=== PATIENT | male | born 1935 ===

== ENCOUNTER 2016-09-01 15:21 | Observation (INO) | payer MEDICARE, OTHER ==
[2016-09-01 16:09] LABS: BASO # 0.1 K/uL (0.0-0.2); EOS # 0.4 K/uL (0.0-0.7); EOS % 5.8 % (0.0-4.0); HEMATOCRIT 30.5 % (35.0-51.0); LYMPH # 1.4 K/uL (1.0-4.3); LYMPH % 18.3 % (20.0-40.0); MEAN CELL VOLUME 80.5 fl (80.0-94.0); MEAN CORPUSCULAR HGB CONC 32.3 g/dL (33.0-37.0); MEAN PLATELET VOLUME 8.4 fl (7.2-11.7); MONO # 0.7 K/uL (0.0-0.8); MONO % 9.3 % (0.0-10.0); NEUT % 65.6 % (50.0-75.0); RED CELL DISTRIBUTION WIDTH 15.3 % (11.5-14.5); WHITE BLOOD COUNT 7.6 K/uL (4.8-10.8)
[2016-09-01 16:21] LABS: ALB/GLOB RATIO 1.3 (1.0-2.1); ALKALINE PHOSPHATASE 81 U/L (38-126); ALT/SGPT 24 U/L (21-72); AST/SGOT 29 U/L (17-59); BILIRUBIN,TOTAL 0.4 mg/dl (0.2-1.3); BLOOD UREA NITROGEN 26 mg/dl (9-20); CARBON DIOXIDE 21 mmol/L (22-30); CHLORIDE 108 mmol/L (98-107); CHOLESTEROL 117 mg/dL (0-199); GFR AFRICAN-AMERICAN > 60; GLUCOSE,RANDOM 231 mg/dL (75-110); SODIUM 138 mmol/l (132-148); TOTAL PROTEIN 6.9 G/DL (6.3-8.2)
--- NOTE | 2016-09-01 16:27 | CT ---
PROCEDURE: CT HEAD WITHOUT CONTRAST. HISTORY: R weakness x2days COMPARISON: None available. TECHNIQUE: Axial computed tomography images were obtained through the head/brain without intravenous contrast. Radiation dose: Total exam DLP = 805.92 mGy-cm. This CT exam was performed using one or more of the following dose reduction techniques: Automated exposure control, adjustment of the mA and/or kV according to patient size, and/or use of iterative reconstruction technique. FINDINGS: HEMORRHAGE: No intracranial hemorrhage. BRAIN: Focal encephalomalacia/gliosis noted at the right frontal lobe may represent old infarct or injury. Small focal encephalomalacia at the left cerebellum is also seen suspicious for old infarct. Esws-zq-kezfebcb atrophy and mild white matter changes suggestive but nonspecific for chronic microvascular ischemic disease. VENTRICLES: Unremarkable. No hydrocephalus. CALVARIUM: Unremarkable. PARANASAL SINUSES: Unremarkable as visualized. No significant inflammatory changes. MASTOID AIR CELLS: Unremarkable as visualized. No inflammatory changes. OTHER FINDINGS: None. IMPRESSION: No evidence of acute intracranial hemorrhage mass effect or midline shift. Focal encephalomalacia at the right frontal and left cerebellum suggestive of old infarcts. Moderate atrophy and [id number]-ci-[id number] white matter changes likely due to chronic microvascular ischemic disease. Baseline study in this institution. If clinically warranted further assessment by MRI may be obtained.
[2016-09-01 16:31] LABS: POTASSIUM 5.3 MMOL/L (3.6-5.0)
[2016-09-01 16:36] LABS: PARTIAL THROMBOPLASTIN TIME 32.4 Seconds (25.6-37.1)
[2016-09-01] MEDS ORDERED: Sodium Chloride 0.9% 1,000 ML IV STA (17:01)
[2016-09-01] MEDS ORDERED: Aspirin 325 mg EC Tablets PO ONE (17:04)
--- NOTE | 2016-09-01 17:04 | ED PDOC ---
HPI:STROKE - Time Time: 15:40 (\) - Historian Historian: Patient - Chief Complaint Chief Complaint: Weakness - Onset Date: 08/30/16 Onset: Days (2) - Timing Timing: Intermittent - Location Locate right:: Upper extremity, Lower extremity - Radiation Radiation: None - Exacerbated by Exacerbated by:: Nothing - Relieved by Relieved by:: Nothing - TPA Positive for Contraindication: Yes Reason tPA is not being Administered: symptoms ongoing 2+ days - Notes: Notes:: 81yo male hx multiple medical problems presents c/o right sided weakness 2 days ago, had difficulty holding his cup of tea, symptoms resolved after several hours, then returned yesterday when he fell, now today symptoms returned. Denies change in speech, headache or hip pain. Does note ongoing right lower back pain. NIHSS Stroke Scale - Date/Time Evaluation Performed When Was NIHSS Performed: Baseline - How Severe is the Stroke Level of Consciousness: 0=Alert LOC to Questions: 0=Both comments correct LOC to commands: 0=Obeys both correctly Best Gaze: 0=Normal Visual: 0=No visual loss Facial: 0=Normal Motor Arm - Left: 0=No drift Motor Arm - Right: 1=Drift noted before 10 sec Motor Leg - Left: 0=No drift Motor Leg - Right: 1=Drift before 5 sec Limb Ataxia: 0=Absent Sensory: 0=Normal Best Language: 0=No aphasia Dysarthia: 0=Normal articulation Extinction & Inattention (Neglect): 0=Normal, no object Score: 2 rTPA Inclusion/Exclusion - Refusal of Treatment Patient Refused Treatment: No - Inclusion Criteria for Altepase Patient is 18 years or Older: Yes The Clinical Diagnosis of Ischemic Stroke That is Causing a Potentially Disabling Neurological Deficit: Yes Time of Onset is Well Established to be Less Than 270 Minute Before Treatment Would Begin: No Risk/Benefit Discussed With Patient/Family Member Present: Yes - Warning to TPA With Conditions Following Conditions Weighed Against Anticipated Benefit: Yes Condition: Rapid Improvement Additional Condition (For 3-4.5 Hour Window): Prior Stroke and Diabetes Past Medical History Reviewed: Historical Data, Nursing Documentation, Vital Signs Vital Signs: Last Vital Signs Temp 97.9 F 09/01/16 15:26 Pulse 55 L 09/01/16 15:26 Resp 16 09/01/16 15:26 BP 129/54 L 09/01/16 15:26 Pulse Ox 98 09/01/16 15:26 - Medical History PMH: Arthritis (hands), CAD, Cardia Arrhythmia, Diabetes, HTN, Seizures Denies: Chronic Kidney Disease - Surgical History Surgical History: CABG, Coronary Stent - Family History Family History: States: Unknown Family Hx - Living Arrangements Living Arrangements: With Family - Social History Current smoker - smoking cessation education provided: No - Immunization History Hx Tetanus Toxoid Vaccination: No Hx Influenza Vaccination: No Hx Pneumococcal Vaccination: No - Home Medications Home Medications: Ambulatory Orders Medication Instructions Recorded Clopidogrel [Plavix] 75 mg PO DAILY #0 tab 12/30/13 Aspirin [Ecotrin] 81 mg PO DAILY 09/01/16 Atenolol [Tenormin] 50 mg PO BID 09/01/16 Brimonidine Tartrate/Timolol 1 drop EACHEYE BID 09/01/16 [Combigan 0.2%-0.5% Eye Drops] Folic Acid/Multivit-Min/Lutein 1 tab PO DAILY 09/01/16 [Multi-Vitamin Gummies] Glimepiride [Amaryl] 1 mg PO DAILY 09/01/16 Rosuvastatin Calcium [Crestor] 20 mg PO DAILY 09/01/16 Valsartan/Hydrochlorothiazide 1 tab PO DAILY 09/01/16 [Valsartan-Hctz 80-12.5 mg Tab] levETIRAcetam [Keppra] 500 mg PO BID 09/01/16 - Allergies Allergies/Adverse Reactions: Allergies Allergy/AdvReac Type Severity Reaction Status Date / Time No Known Allergies Allergy Verified 09/01/16 15:25 Review of Systems ROS Statement: Except As Marked, All Systems Reviewed And Found Negative Constitutional: Negative for: Fever, Chills Cardiovascular: Negative for: Chest Pain, Palpitations Musculoskeletal: Positive for: Back Pain, Leg Pain. Negative for: Neck Pain, Shoulder Pain Skin: Negative for: Rash, Lesions, Jaundice Neurological: Positive for: Weakness, Numbness, Dizziness. Negative for: Confusion, Seizures, Headache Physical Exam - Reviewed Nursing Documentation Reviewed: Yes Vital Signs Reviewed: Yes - Physical Exam Appears: Positive for: Well, Non-toxic, No Acute Distress Head Exam: Positive for: ATRAUMATIC, NORMAL INSPECTION, NORMOCEPHALIC Skin: Positive for: Normal Color, Warm, DRY Eye Exam: Positive for: EOMI, Normal appearance, PERRL ENT: Positive for: Normal ENT Inspection Neck: Positive for: Normal, Painless ROM Cardiovascular/Chest: Positive for: Regular Rate, Rhythm Respiratory: Positive for: CNT, Normal Breath Sounds Gastrointestinal/Abdominal: Positive for: Normal Exam, Bowel Sounds, Soft Back: Positive for: Normal Inspection Extremity: Positive for: Normal ROM Neurologic/Psych: Positive for: Alert, 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 (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), Oriented, Other ( RLE 4/5 RUE 4/5 strength; coordination grossly intact) - Laboratory Results Result Diagrams: 09/01/16 15:55 09/01/16 15:55 - ECG ECG: Positive for: Interpreted By Tn ECG Rhythm: Positive for: Atrial Fibrillation Interpretation Of ECG: slow ventricular response O2 Sat by Pulse Oximetry: 98 Pulse Ox Interpretation: Normal - Radiology X-Ray: Interpreted by Me X-Ray Interpretation: No Acute Disease (surgical clips) - Critical Care Total Time (In Min): 35 Comments: pt required immediate bedside attention due to bradycardia and possible acute neurologic event Medical Decision Making Medical Decision Making: stroke workup initiated. CT brain reveals extensive prior infarcts. Labs reviewed, hyperglycemia, mild anemia. ASA ordered Admit tele obs, Dr Diaz, d/w Dunia Maza and Dr Dominguez neurology. Son later arrived in ED, states pt sees Dr Montes for neurology, last saw about 1 yr ago. He has a stent in L carotid as 50% occluded and R 100% occluded. Does not take warfarin or other anticoagulants. Does take ASA daily. Fell yesterday but that was first fall in many years. Disposition - Clinical Impression Clinical Impression: TIA (transient ischemic attack), Bradycardia - Patient ED Disposition Is Patient to be Admitted: Yes Counseled Patient/Family Regarding: Studies Performed, Diagnosis, Need For Followup - Disposition Disposition Time: 16:40 Condition: FAIR - Pt Status Changed To: Hospital Disposition Of: Observation
--- NOTE | 2016-09-01 18:02 | RAD ---
HISTORY: TIA COMPARISON: 12/29/2013. FINDINGS: LUNGS: No active pulmonary disease. PLEURA: No significant pleural effusion identified, no pneumothorax apparent. CARDIOVASCULAR: Cardiomegaly. No evidence of acute, significant cardiovascular disease. No caps previous OSSEOUS STRUCTURES: No significant abnormalities. VISUALIZED UPPER ABDOMEN: Normal. OTHER FINDINGS: None. IMPRESSION: No active disease. No significant interval change compared to the prior examination(s).
--- NOTE | 2016-09-01 19:21 | PCM.RRTMUL ---
<Orion Hauser - Last Filed: 09/01/16 22:21> TOY ASSEMBLER Nurse Assessment - Vital Signs Blood Pressure:: 158/84 Pulse Rate:: 59 Respiratory Rate:: 14 Temperature:: 98.0 F I.Reason for TOY ASSEMBLER - A) Acute Change in Patient: Subjective: TOY ASSEMBLER Time: 7:08 TOY ASSEMBLER Location 417-1 TOY ASSEMBLER Reason: Numbness left leg TOY ASSEMBLER Discoverer: ADALI Chino Subjective: Pt. seen in bed right after being transported from E.R. to telemetry unit on 417-1 complaining of left lower leg numbness and weakness. Pt. AAOx 3 reports was just in the E.R. for TIA and had a CT scan of his head done. On ROS, pt. denies any headache, chest pain, abdominal pain, back pain, fever, or chills. Pt. does report weakness on his left side. Objective: Vitals: T-97.9, BP-153/61, HR-58, RR14, O2-100% on Room Air General- Comfortable, No distress, Speech Normal HEENT- PERRLA Resp- CTAB Neuro- ROM intact upper and lower extremities Peripheral- +2 pedal pulses bilaterally TOY ASSEMBLER Interventions: CT Head reviewed: Negative for signs of intracranial hemorrhage, mass effect, or midline shift A/P: 81 y.o. male admitted for TIA and negative CT scan head in the E.R. with stable vital signs and patient with ability to move all four extremiteis without difficulty while in bed with subjective weakness on the left side in stable condition. TOY ASSEMBLER Leader: Dr. Shepard TOY ASSEMBLER Resident: Dr. Hauser <Frank Shepard - Last Filed: 09/02/16 19:55> Addendum Addendum: 09/02/16 19:49 Patient seen and examined shoulder to shoulder with Dr Hauser. i agree with the assessment and plan outlined which reflect my direct input. The patient when seen was awake and alert with the same complaint of left lower extremity weakness as on his entry to the ED. Diagnosis is TIA with negative CT of head. Continue Neuro checks. MRI for AM. Frank Shepard MD.
[2016-09-02 04:48] LABS: BASO # 0.1 K/uL (0.0-0.2); BASO % 0.6 % (0.0-2.0); EOS # 0.6 K/uL (0.0-0.7); EOS % 6.5 % (0.0-4.0); HEMATOCRIT 31.9 % (35.0-51.0); LYMPH # 1.3 K/uL (1.0-4.3); LYMPH % 14.9 % (20.0-40.0); MEAN CELL VOLUME 81.8 fl (80.0-94.0); MEAN CORPUSCULAR HEMOGLOBIN 26.3 pg (27.0-31.0); MEAN CORPUSCULAR HGB CONC 32.2 g/dL (33.0-37.0); MEAN PLATELET VOLUME 8.5 fl (7.2-11.7); MONO # 0.9 K/uL (0.0-0.8); MONO % 9.9 % (0.0-10.0); NEUT # 6.1 K/uL (1.8-7.0); NEUT % 68.1 % (50.0-75.0); NRBC % 0.1 % (0.0-0.0); RED CELL DISTRIBUTION WIDTH 15.4 % (11.5-14.5)
[2016-09-02 04:55] LABS: ALB/GLOB RATIO 1.3 (1.0-2.1); ALKALINE PHOSPHATASE 81 U/L (38-126); ALT/SGPT 30 U/L (21-72); AST/SGOT 29 U/L (17-59); BILIRUBIN,TOTAL 0.5 mg/dl (0.2-1.3); BLOOD UREA NITROGEN 18 mg/dl (9-20); CARBON DIOXIDE 23 mmol/L (22-30); CHLORIDE 112 mmol/L (98-107); GFR AFRICAN-AMERICAN > 60; GLUCOSE,RANDOM 82 mg/dL (75-110); POTASSIUM 4.9 MMOL/L (3.6-5.0); SODIUM 145 mmol/l (132-148); TOTAL PROTEIN 6.8 G/DL (6.3-8.2)
[2016-09-02 07:57] VITALS: RESP 18
[2016-09-02] MEDS ORDERED: Enoxaparin 40 mg Syringe SC SCH (09:00)
[2016-09-02] MEDS ORDERED: Patient's Own Med (Brimonidine Tartrate/Timolol [Combigan 0.2%-0.5% Eye Drops] 1 DROP) EACHEYE SCH (09:00)
[2016-09-02] MEDS ORDERED: GlipiZIDE 2.5 mg SR Tab PO SCH (09:00)
[2016-09-02] MEDS ORDERED: Patient's Own Med (Valsartan/Hydrochlorothiazide [Valsartan-Hctz 80-12.5 Mg Tab] 1 TAB) PO SCH (09:00)
[2016-09-02] MEDS ORDERED: Multivitamin With Minerals Tab PO SCH (09:00)
[2016-09-02] MEDS: Brimonidine 0.2% 50 DROP/5 ML BOTTLE OU SCH ×3 (09:14→17:30)
--- NOTE | 2016-09-02 09:22 | CP.PCM.HP ---
History of Present Illness - History of Present Illness History of Present Illness: pt admitted for tia, having intermittent muscular weakness, tingling, pain. thurs felt like he could not picker tender a cup of tea. atp resent only c/o pain to r great toe. has h/o cad, htn, seizure, dyslipiemia. has had left carotid stent and cardiac stent x 1. no neuro deficits or fast s/s at present. bruit/ thrill to R neck. case d/c w/ dr sanchez-neuro and dr campblel-radiology. pt has occlusion r carotid and large amt of disease w/ partial occlusion of stent to left carotid. Present on Admission - Present on Admission Any Indicators Present on Admission: No Review of Systems - Neurological Neurological: As Per HPI, Focal Weakness, Paresthesias Past Patient History - Past Medical History & Family History Past Medical History?: Yes - Past Social History Smoking Status: Never Smoked - CARDIAC Hx Cardiac Disorders: Yes Hx Cardia Arrhythmia: Yes Hx Hypertension: Yes - PULMONARY Hx Respiratory Disorders: No - NEUROLOGICAL Hx Neurological Disorder: Yes Hx Seizures: Yes - HEENT Hx HEENT Problems: Yes Other/Comment: hard of hearing - RENAL Hx Chronic Kidney Disease: No - ENDOCRINE/METABOLIC Hx Endocrine Disorders: Yes Hx Diabetes Mellitus Type 2: Yes - HEMATOLOGICAL/ONCOLOGICAL Hx Blood Disorders: No - INTEGUMENTARY Hx Dermatological Problems: No - MUSCULOSKELETAL/RHEUMATOLOGICAL Hx Arthritis: Yes (hands) Hx Back Pain: Yes (chronic) Hx Falls: Yes - GASTROINTESTINAL Hx Gastrointestinal Disorders: No - GENITOURINARY/GYNECOLOGICAL Hx Genitourinary Disorders: No - PSYCHIATRIC Hx Psychophysiologic Disorder: No - SURGICAL HISTORY Hx Angioplasty: Yes (3-4) Hx Coronary Artery Bypass Graft: Yes Hx Coronary Stent: Yes Other/Comment: carotid stent, retinal stent - ANESTHESIA Hx Anesthesia: Yes Hx Anesthesia Reactions: No Hx Malignant Hyperthermia: No Meds Allergies/Adverse Reactions: Allergies Allergy/AdvReac Type Severity Reaction Status Date / Time No Known Allergies Allergy Verified 09/01/16 15:25 Physical Exam - Constitutional Appears: Well, Non-toxic, No Acute Distress - Head Exam Head Exam: ATRAUMATIC, NORMAL INSPECTION, NORMOCEPHALIC - Eye Exam Eye Exam: EOMI, Normal appearance, PERRL Pupil Exam: NORMAL ACCOMODATION, PERRL - ENT Exam ENT Exam: Mucous Membranes Moist, Normal Exam - Neck Exam Neck exam: Positive for: Normal Inspection - Respiratory Exam Respiratory Exam: Clear to Auscultation Bilateral, NORMAL BREATHING PATTERN - Cardiovascular Exam Cardiovascular Exam: REGULAR RHYTHM, RRR, +S1, +S2 - GI/Abdominal Exam GI & Abdominal Exam: Normal Bowel Sounds, Soft. absent: Tenderness - Extremities Exam Extremities exam: Positive for: full ROM, normal capillary refill, normal inspection, pedal pulses present Additional comments: pain on palp r great toe - Back Exam Back exam: NORMAL INSPECTION - Neurological Exam Neurological exam: Alert, CN II-XII Intact, Normal Gait, Oriented x3, Reflexes Normal - Psychiatric Exam Psychiatric exam: Normal Affect, Normal Mood - Skin Skin Exam: Dry, Intact, Normal Color, Warm Results - Vital Signs Recent Vital Signs: Last Vital Signs Temp 97.8 F 09/02/16 07:56 Pulse 56 L 09/02/16 07:56 Resp 18 09/02/16 07:56 BP 144/52 L 09/02/16 07:56 Pulse Ox 98 09/02/16 07:56 - Labs Result Diagrams: 09/02/16 04:05 09/02/16 04:05 Labs: Laboratory Results - last 24 hr 09/01/16 09/01/16 09/02/16 20:27 22:58 04:05 WBC 9.0 RBC 3.90 L Hgb 10.3 L Hct 31.9 L MCV 81.8 MCH 26.3 L MCHC 32.2 L RDW 15.4 H Plt Count 192 MPV 8.5 Neut % (Auto) 68.1 Lymph % (Auto) 14.9 L [place] % (Auto) 9.9 Eos % (Auto) 6.5 H Baso % (Auto) 0.6 Neut # 6.1 Lymph # 1.3 [place] # 0.9 H Eos # 0.6 Baso # 0.1 Sodium Potassium Chloride Carbon Dioxide Anion Gap BUN Creatinine Est GFR ( Amer) Est GFR (Non-Af Amer) POC Glucose (mg/dL) 260 H 165 H Random Glucose Calcium Total Bilirubin AST ALT Alkaline Phosphatase Total Protein Albumin Globulin Albumin/Globulin Ratio 09/02/16 09/02/16 09/02/16 04:05 05:40 06:51 WBC RBC Hgb Hct MCV MCH MCHC RDW Plt Count MPV Neut % (Auto) Lymph % (Auto) [place] % (Auto) Eos % (Auto) Baso % (Auto) Neut # Lymph # [place] # Eos # Baso # Sodium 145 Potassium 4.9 Chloride 112 H Carbon Dioxide 23 Anion Gap 15 BUN 18 Creatinine 1.1 Est GFR ( Amer) > 60 Est GFR (Non-Af Amer) > 60 POC Glucose (mg/dL) 69 116 H Random Glucose 82 Calcium 9.0 Total Bilirubin 0.5 AST 29 ALT 30 Alkaline Phosphatase 81 Total Protein 6.8 Albumin 3.8 Globulin 3.0 Albumin/Globulin Ratio 1.3 Assessment & Plan (1) DVT prophylaxis Assessment and Plan: scd nad aehose lvoenox, asa, palvix Status: Acute (2) Bradycardia Assessment and Plan: cardio consult Status: Acute (3) TIA (transient ischemic attack) Assessment and Plan: carotid doplar w/ large amt of disease, mri brain normal case d/c w/ neuro and radio who are on case ?? need to transfer for IR procedure after neuro eval cont asa, plavix, lipitor Status: Acute (4) Hypertension Assessment and Plan: cont meds, strict bp control Status: Acute Decision To Admit - Pt Status Changed To: Hospital Disposition Of: Observation - . Bed Request Type: Telemetry Admitting Physician: Tami Diaz
[2016-09-02] MEDS ORDERED: Bacitracin OINT 15GM TOP SCH (10:33)
--- NOTE | 2016-09-02 10:56 | US ---
PROCEDURE: Duplex ultrasound of the carotid and vertebral arteries. HISTORY: tia COMPARISON: None available. TECHNIQUE: Grayscale and duplex Doppler evaluation of the cervical carotid and vertebral arteries were performed. The common carotid, carotid bifurcations and cervical ICA and proximal ECA were evaluated. The vertebral arteries were evaluated for gross patency and direction. FINDINGS: RIGHT CAROTID ARTERIES: Complete occlusion of the right internal carotid artery. LEFT CAROTID ARTERIES: There is an apparent endovascular stent graft which extends from the distal common carotid artery, presumably into the bifurcation and possibly into the proximal internal carotid artery however due to significant atherosclerotic plaque changes apparently within the graft the distal aspect of the graft itself is of not visualized. Markedly increased increased velocity within the internal carotid artery. Maximal right ICA velocity = 236.56 cm/S Maximal left CCA velocity = 125.8 cm/S. ICA/CCA ratio = 1.9 VERTEBRAL ARTERIES: Right Vertebral Artery: Patent. Antegrade flow. Left Vertebral Artery: Patent. Antegrade flow. OTHER FINDINGS: None. IMPRESSION: Complete occlusion of the right internal carotid artery. In situ endovascular stent graft within the left common carotid artery bifurcation and probably extending into the proximal internal carotid artery however on the distal aspect of the graft is not seen due to significant atherosclerotic plaque . Findings suggest severe high-grade stenosis of the left internal carotid artery. Findings discussed with Dr. Maza at approximately 10:45 a.m. with written down and read back verification.
--- NOTE | 2016-09-02 11:11 | MRI ---
PROCEDURE: MRI BRAIN WITHOUT CONTRAST HISTORY: tia COMPARISON: Comparison made with prior CT scan of the brain dated 09/01/2016. TECHNIQUE: Multiplanar, multisequence MR images of the brain were obtained without intravenous contrast enhancement. FINDINGS: HEMORRHAGE: No acute parenchymal, subarachnoid nor extra-axial hemorrhage. . There is a small focal area of a very dark T2 signal in the right frontal lobe bordering chronic infarct that probably represents small hemosiderin deposit. . DWI: No evidence of an acute or early subacute infarction. BRAIN PARENCHYMA: Chronic appearing right frontal lobe infarct. In addition, mild to moderate chronic periventricular white matter ischemic changes with multiple more discrete chronic appearing lacunar type infarcts scattered about the deep and subcortical white matter both cerebral hemispheres. . Chronic small infarcts also seen in both basal nuclei, both cerebellar hemispheres and left zenaida. VENTRICLES: No evidence of obstructive hydrocephalusUnremarkable. No hydrocephalus. CRANIUM: Unremarkable. ORBITS: Postsurgical changes of bilateral cataract surgery. . PARANASAL SINUSES/MASTOIDS: Polypoid like mucosal thickening both maxillary sinuses. . VASCULAR SYSTEM: Complete occlusion right internal carotid artery. OTHER FINDINGS: None. IMPRESSION: No acute intracranial hemorrhage or acute infarct. In Complete occlusion right internal carotid artery. Chronic right frontal infarct with multiple more discrete infarct changes scattered throughout the deep and subcortical white matter of both cerebral hemispheres, both basal nuclei, both cerebellar hemispheres and left zenaida. No acute hemorrhage however there is a hemosiderin deposits seen in the right Moderate generalized volume loss. These findings discussed with Dr. Maza at approximately 10:45 a.m. with written down and read back verification.
[2016-09-02] MEDS: Bacitracin 500 Units/gm Oint Foilpak UD TOP SCH ×2 (12:04→17:15)
--- NOTE | 2016-09-02 12:32 | RAD ---
PROCEDURE: Radiographs of the Lumbar Spine. HISTORY: fall pain COMPARISON: Comparison made with prior study 09/24/2013 FINDINGS: BONES: Current study reveals no evidence of acute compression fractures no retropulsed fragments. Vertebral bodies exhibit normal stature. Slight anterior subluxation L4 over L5. Other than minor straightening of the normal lumbar lordosis,, the remaining vertebral bodies otherwise exhibit normal alignment. DISC SPACES: Mild moderate degenerative spondylosis at the L5-S1 level. Changes include disc space narrowing, endplate eburnation and small anterolateral osteophyte formation. Facet joints also moderate to significantly hypertrophic. Less severe degenerative spondylosis seen at the L4-L5 and L3-L4 levels. OTHER FINDINGS: Vascular calcifications of the abdominal aorta and iliac arteries. . Metallic clips right upper quadrant of the abdomen consistent with prior cholecystectomy. IMPRESSION: No acute compression fractures no retropulsed fragments. Mild multilevel degenerative spondylosis as above
--- NOTE | 2016-09-02 13:07 | RAD ---
PROCEDURE: Pelvis dated 09/01/2016 HISTORY: Status post fall with pain COMPARISON: Comparison made with prior radiographs right hip 09/09/2014 FINDINGS: Findings: The current study reveals no definitive radiographic evidence of acute displaced fracture nor dislocation. Both femoral heads are appropriately located within the respective acetabula. Degenerative changes both hip joints. There also are degenerative spondylotic changes of the lower lumbosacral spine. If symptoms persist or occult fracture suspected clinically recommend followup CT scan or MRI of the pelvis. Vascular calcifications are again noted. Incidental note made of moderate amount of stool within the cecum and ascending colon consistent with mild constipation. Impression: No fracture seen. Degenerative osteoarthritis of both hip joints as well as a degenerative spondylosis lower lumbosacral spine. Followup studies could be performed if symptoms persist or occult fracture suspected clinically.
--- NOTE | 2016-09-02 16:11 | CON ---
DATE: 09/02/2016 REASON FOR CONSULTATION: Transient ischemic attack. HISTORY OF PRESENT ILLNESS: The patient is a 81-year-old male for whom I have been asked for evaluat ion of possible TIA. The patient has history of stroke in the past. He was experiencing some interm ittent tingling sensation and was having difficulty with holding a cup of tea. He was also feeling s tiff and had difficulty with walking. The patient denies any focal weakness in arms or legs. He fee ls better today. Denies any focal weakness in arms or legs. Denies any headache or dizziness. His symptoms of tingling in the left side are better now. REVIEW OF SYSTEMS: Denies any headache, dizziness, chest pain, shortness of breath, abdominal pain, constipation, diarrhea, dysuria, pyuria, cough, sputum production. PAST MEDICAL HISTORY: Includes cerebrovascular accident, seizures, hypercholesterolemia, hypertensi on, coronary artery disease, and carotid stenosis. PAST SURGICAL HISTORY: History of carotid and coronary artery stent placement. MEDICATIONS AT HOME: Included folic acid, aspirin, Combigan eyedrops, Amaryl, Tenormin, valsartan/hy drochlorothiazide, Crestor, Plavix, and Keppra 500 mg b.i.d. ALLERGIES: No known drug allergies. SOCIAL HISTORY: Denies smoking, use of alcohol, or illicit drugs. FAMILY HISTORY: Reviewed and noncontributory to the case. PHYSICAL EXAMINATION: GENERAL: The patient is an elderly, pleasant male, lying on the bed, in no acute distress. VITAL SIGNS: His blood pressure is 179/63, heart rate is 54 per minute, breathing at a rate of 16 pe r minute, temperature is 97.6 degrees Fahrenheit. HEENT: Normocephalic, atraumatic. NECK: Supple. There are no carotid bruits. LUNGS: Clear. CARDIOVASCULAR: S1, S2 audible. No murmurs. ABDOMEN: Soft, nontender. Bowel sounds present. NEUROLOGIC EXAMINATION: MENTAL STATUS: The patient is awake, alert, oriented to time, place, person. Speech is fluent. Nam ing and repetition normal. Memory and cognition are intact. CRANIAL NERVE EXAMINATION: Pupils are 2 mm, minimally reactive to light. Extraocular movements are intact. There is no facial asymmetry. MOTOR: He is moving all 4 extremities. Power appears to be 5/5 all over. REFLEXES: 1+ and symmetrical. Plantars downgoing bilaterally. CEREBELLAR EXAMINATION: [id number] shows no dysmetria. GAIT: Deferred at the moment. He usually walks with the help of a cane. LABORATORY DATA: Labs reviewed. MRI of the brain shows no acute intracranial hemorrhage or acute infarct, chronic right frontal infar ct, with multiple more discrete infarct changes scattered throughout the deep and subcortical white m atter of both cerebral hemispheres, both basal nuclei, ganglia both cerebellar hemispheres, and left zenaida. He had a carotid Doppler study done which shows complete occlusion of the right internal carotid mayank ry. In situ endovascular stent graft within the left common carotid artery bifurcation, probably ext ending into the proximal internal carotid artery; however, the distal aspect of the graft is not seen due to significant atherosclerotic plaque. Findings consistent of severe high-grade stenosis of the left internal carotid artery. His WBC is 9.0, hemoglobin 10.3, hematocrit of 31.9 and platelets of 192. His INR is 1.0. Sodium is 145, potassium 4.9, chloride 112, carbon dioxide content 23, BUN of 18, creatinine 1.1, and glucose of 82. IMPRESSION: 1. Possible transient ischemic attack with episode of tingling and numbness in the left side. 2. History of seizure disorder. 3. History of cerebrovascular disease. 4. Carotid artery disease with history of carotid stent in the left internal carotid artery. RECOMMENDATIONS: 1. The patient to be continued on aspirin and Plavix. 2. The patient also to be continued on statin. 3. The patient to be continued on his Keppra for his underlying seizure disorder. 4. The patient has an appointment on 09/15/2016 with his vascular physician, in [facility], in [place], for followup visit for his carotid stent. 5. At present, patient has no focal neurologic deficits. 6. The patient was not a candidate for TPA administration because of complete resolution of his sympt oms. 7. The patient may be discharged with outpatient followup. Thank you for the opportunity to participate in the care of this patient. Beatrice Montes MD cc: 142 TT: 09/02/2016 16:11:14 Confirmation # [id number] Dictation # [id number] ln
[2016-09-02 16:38] VITALS: BP 176/52; PULSE 50; TEMP 97.4; O2SAT 96
--- NOTE | 2016-09-03 06:51 | CP.PCM.CON ---
Past Patient History - Past Medical History & Family History Past Medical History?: Yes - Past Social History Smoking Status: Never Smoked - CARDIAC Hx Cardiac Disorders: Yes Hx Cardia Arrhythmia: Yes Hx Hypertension: Yes - PULMONARY Hx Respiratory Disorders: No - NEUROLOGICAL Hx Neurological Disorder: Yes Hx Seizures: Yes - HEENT Hx HEENT Problems: Yes Other/Comment: hard of hearing - RENAL Hx Chronic Kidney Disease: No - ENDOCRINE/METABOLIC Hx Endocrine Disorders: Yes Hx Diabetes Mellitus Type 2: Yes - HEMATOLOGICAL/ONCOLOGICAL Hx Blood Disorders: No - INTEGUMENTARY Hx Dermatological Problems: No - MUSCULOSKELETAL/RHEUMATOLOGICAL Hx Arthritis: Yes (hands) Hx Back Pain: Yes (chronic) Hx Falls: Yes - GASTROINTESTINAL Hx Gastrointestinal Disorders: No - GENITOURINARY/GYNECOLOGICAL Hx Genitourinary Disorders: No - PSYCHIATRIC Hx Psychophysiologic Disorder: No - SURGICAL HISTORY Hx Angioplasty: Yes (3-4) Hx Coronary Artery Bypass Graft: Yes Hx Coronary Stent: Yes Other/Comment: carotid stent, retinal stent - ANESTHESIA Hx Anesthesia: Yes Hx Anesthesia Reactions: No Hx Malignant Hyperthermia: No Meds Home Medications: Home Medication List Medication Instructions Recorded Confirmed Type Acetaminophen [Tylenol 325mg tab] 650 mg PO Q4 PRN tab 09/02/16 Rx Bacitracin 1 ea TOP BID 09/02/16 Rx Allergies/Adverse Reactions: Allergies Allergy/AdvReac Type Severity Reaction Status Date / Time No Known Allergies Allergy Verified 09/01/16 15:25 Results - Vital Signs Recent Vital Signs: Last Vital Signs Temp 97.4 F L 09/02/16 16:38 Pulse 50 L 09/02/16 17:30 Resp 18 09/02/16 16:38 BP 176/52 H 09/02/16 17:30 Pulse Ox 96 09/02/16 16:38 - Labs Result Diagrams: 09/02/16 04:05 09/02/16 04:05 Labs: Laboratory Results - last 24 hr 09/02/16 09/02/16 09/02/16 06:51 11:12 15:54 POC Glucose (mg/dL) 116 H 268 H 243 H
--- NOTE | 2016-09-03 13:34 | CARD ---
APPROVED REPORT EKG Measurement Heart [id number] <Conclusion> Sinus bradycardia with first degree AV block and premature atrial contractions Left bundle branch block Abnormal ECG
--- NOTE | 2016-09-03 14:15 | CP.PCM.DIS ---
Provider - Provider Date of Admission: 09/01/16 17:01 Attending physician: Tami Diaz MD Time Spent in preparation of Discharge (in minutes): 15 Diagnosis - Discharge Diagnosis (1) DVT prophylaxis Status: Acute (2) Bradycardia Status: Acute (3) TIA (transient ischemic attack) Status: Acute (4) Hypertension Status: Acute Hospital Course - Lab Results Lab Results: Most Recent Lab Values WBC 9.0 K/uL (4.8-10.8) 09/02/16 04:05 RBC 3.90 Mil/uL (4.40-5.90) L 09/02/16 04:05 Hgb 10.3 g/dL (12.0-18.0) L 09/02/16 04:05 Hct 31.9 % (35.0-51.0) L 09/02/16 04:05 MCV 81.8 fl (80.0-94.0) 09/02/16 04:05 MCH 26.3 pg (27.0-31.0) L 09/02/16 04:05 MCHC 32.2 g/dL (33.0-37.0) L 09/02/16 04:05 RDW 15.4 % (11.5-14.5) H 09/02/16 04:05 Plt Count 192 K/uL (130-400) 09/02/16 04:05 MPV 8.5 fl (7.2-11.7) 09/02/16 04:05 Neut % (Auto) 68.1 % (50.0-75.0) 09/02/16 04:05 Lymph % (Auto) 14.9 % (20.0-40.0) L 09/02/16 04:05 [place] % (Auto) 9.9 % (0.0-10.0) 09/02/16 04:05 Eos % (Auto) 6.5 % (0.0-4.0) H 09/02/16 04:05 Baso % (Auto) 0.6 % (0.0-2.0) 09/02/16 04:05 Neut # 6.1 K/uL (1.8-7.0) 09/02/16 04:05 Lymph # 1.3 K/uL (1.0-4.3) 09/02/16 04:05 [place] # 0.9 K/uL (0.0-0.8) H 09/02/16 04:05 Eos # 0.6 K/uL (0.0-0.7) 09/02/16 04:05 Baso # 0.1 K/uL (0.0-0.2) 09/02/16 04:05 PT 11.2 Seconds (9.8-13.1) 09/01/16 15:55 INR 1.0 (0.9-1.2) 09/01/16 15:55 APTT 32.4 Seconds (25.6-37.1) 09/01/16 15:55 Sodium 145 mmol/l (132-148) 09/02/16 04:05 Potassium 4.9 MMOL/L (3.6-5.0) 09/02/16 04:05 Chloride 112 mmol/L (98-107) H 09/02/16 04:05 Carbon Dioxide 23 mmol/L (22-30) 09/02/16 04:05 Anion Gap 15 (10-20) 09/02/16 04:05 BUN 18 mg/dl (9-20) 09/02/16 04:05 Creatinine 1.1 mg/dL (0.8-1.5) 09/02/16 04:05 Est GFR ( Amer) > 60 09/02/16 04:05 Est GFR (Non-Af Amer) > 60 09/02/16 04:05 POC Glucose (mg/dL) 243 mg/dL (65-110) H 09/02/16 15:54 Random Glucose 82 mg/dL (75-110) 09/02/16 04:05 Hemoglobin A1c 6.1 % (4.2-6.5) 09/01/16 15:55 Calcium 9.0 mg/dL (8.4-10.2) 09/02/16 04:05 Total Bilirubin 0.5 mg/dl (0.2-1.3) 09/02/16 04:05 AST 29 U/L (17-59) 09/02/16 04:05 ALT 30 U/L (21-72) 09/02/16 04:05 Alkaline Phosphatase 81 U/L (38-126) 09/02/16 04:05 Troponin I < 0.0120 ng/mL (0.00-0.120) 09/01/16 15:55 Total Protein 6.8 G/DL (6.3-8.2) 09/02/16 04:05 Albumin 3.8 g/dL (3.5-5.0) 09/02/16 04:05 Globulin 3.0 gm/dL (2.2-3.9) 09/02/16 04:05 Albumin/Globulin Ratio 1.3 (1.0-2.1) 09/02/16 04:05 Triglycerides 163 mg/DL (0-149) H 09/01/16 15:55 Cholesterol 117 mg/dL (0-199) 09/01/16 15:55 LDL Cholesterol Direct 50 mg/dL (0-129) 09/01/16 15:55 HDL Cholesterol 41 MG/DL (30-70) 09/01/16 15:55 Blood Type O POSITIVE 09/01/16 15:55 Antibody Screen Negative 09/01/16 15:55 BBK History Checked Patient has bt 09/01/16 15:55 Discharge Exam - Head Exam Head Exam: ATRAUMATIC, NORMAL INSPECTION, NORMOCEPHALIC Discharge Plan - Follow Up Plan Condition: FAIR Disposition: HOME/ ROUTINE Instructions: Transient Ischemic Attack (DC) Additional Instructions: cleared by neuro/cardio f/u rmg, rted prn, meds permed rec, fianldx-tia noted all imaging doing well, w/o complaitns
== END 2016-09-02 17:40 | disposition home or self-care (01) ==
LOC: H.ER 15:21 → H.ERHOLD 17:01 → H.TEL 18:53
PROVIDERS: ADMIT Family Medicine; ATTEND Family Medicine
DX: G45.9 Transient cerebral ischemic attack, unspecified (principal); D64.9 Anemia, unspecified; E11.65 Type 2 diabetes mellitus with hyperglycemia; E78.00 Pure hypercholesterolemia, unspecified; I65.29 Occlusion and stenosis of unspecified carotid artery; G40.909 Epilepsy, unspecified, not intractable, without status epilepticus; H91.90 Unspecified hearing loss, unspecified ear; I10 Essential (primary) hypertension; I25.10 Atherosclerotic heart disease of native coronary artery without angina pectoris; M19.041 Primary osteoarthritis, right hand; M19.042 Primary osteoarthritis, left hand; Z79.02 Long term (current) use of antithrombotics/antiplatelets; Z79.82 Long term (current) use of aspirin; Z86.73 Personal history of transient ischemic attack (TIA), and cerebral infarction without residual deficits; Z95.1 Presence of aortocoronary bypass graft; Z95.5 Presence of coronary angioplasty implant and graft; M19.90 Unspecified osteoarthritis, unspecified site; M54.5 Low back pain; R00.1 Bradycardia, unspecified
CPT/HCPCS: 36415; 70450; 70551; 71010; 72114; 72170; 80053; 80061; 82948; 83036; 84484; 85025; 85610; 85730; 86850; 86900; 93005; 93880; 99285; G0378; J1650; J7040

== ENCOUNTER 2017-05-22 16:46 | Inpatient (IN) | payer MEDICARE, BC ==
[2017-05-22] MEDS ORDERED: Albuterol-Ipratrop 3 mg / 0.5 (3 ml) UD ONE (17:11)
[2017-05-22] MEDS ORDERED: Nitroglycerin 2% Ointment Foilpak UD TOP ONE (17:14)
[2017-05-22] MEDS ORDERED: EnalaprilAT 1.25 mg/ml Inj IVP STA (17:18)
[2017-05-22] MEDS ORDERED: Nitroglycerin 2% Ointment Foilpak UD TOP STA (17:18)
[2017-05-22 17:30] LABS: BASO % 0.8 % (0.0-2.0); EOS # 0.1 K/uL (0.0-0.7); EOS % 0.4 % (0.0-4.0); HEMOGLOBIN 11.9 g/dL (12.0-18.0); LYMPH # 0.9 K/uL (1.0-4.3); LYMPH % 6.6 % (20.0-40.0); MEAN CELL VOLUME 81.7 fl (80.0-94.0); MEAN CORPUSCULAR HEMOGLOBIN 26.1 pg (27.0-31.0); MEAN CORPUSCULAR HGB CONC 31.9 g/dL (33.0-37.0); MEAN PLATELET VOLUME 8.5 fl (7.2-11.7); MONO # 1.1 K/uL (0.0-0.8); MONO % 8.1 % (0.0-10.0); NEUT # 11.9 K/uL (1.8-7.0); NEUT % 84.1 % (50.0-75.0); PLATELET COUNT 328 K/uL (130-400); RBC 4.55 Mil/uL (4.40-5.90); RED CELL DISTRIBUTION WIDTH 15.9 % (11.5-14.5); WHITE BLOOD COUNT 14.2 K/uL (4.8-10.8)
[2017-05-22 17:31] LABS: BASO # 0.1 K/uL (0.0-0.2)
[2017-05-22 17:37] LABS: ALB/GLOB RATIO 1.1 (1.0-2.1); ALBUMIN 4.2 g/dL (3.5-5.0); ALT/SGPT 32 U/L (21-72); AST/SGOT 35 U/L (17-59); BLOOD UREA NITROGEN 30 mg/dl (9-20); CALCIUM 9.7 mg/dL (8.4-10.2); GFR AFRICAN-AMERICAN 47; GFR NON-AFRICAN AMERICAN 39
[2017-05-22] MEDS ORDERED: EnalaprilAT 1.25 mg/ml Inj ONE (17:41)
[2017-05-22 17:42] LABS: INR 1.1 (0.9-1.2); PARTIAL THROMBOPLASTIN TIME 37.2 Seconds (25.6-37.1); PROTHROMBIN TIME 11.7 Seconds (9.8-13.1)
[2017-05-22 17:42] LABS: VENOUS BLOOD GAS BASE EXCESS -3.9 mmol/L (0.0-2.0); VENOUS BLOOD GAS PCO2 43 mmHg (40-60); VENOUS BLOOD GAS PO2 44 mm/Hg (30-55); VENOUS BLOOD PH 7.32 (7.32-7.43)
[2017-05-22 17:49] LABS: B-TYPE NATRIURETIC PEPTIDE 8680 pg/ml (0-900)
[2017-05-22] MEDS ORDERED: Sod Polystyrene Sulf 15 gm/60 ml Susp PO STA (17:53)
--- NOTE | 2017-05-22 17:53 | RAD ---
HISTORY: Shortness of breath COMPARISON: 09/01/2016. FINDINGS: LUNGS: Pulmonary vascular congestion. Compressive atelectasis right lower lobe. PLEURA: Large right pleural effusion. CARDIOVASCULAR: Cardiomegaly, evidence of acute congestive heart failure. Macro CABG OSSEOUS STRUCTURES: No significant abnormalities. VISUALIZED UPPER ABDOMEN: Normal. OTHER FINDINGS: None. IMPRESSION: Acute congestive heart failure.
[2017-05-22] MEDS ORDERED: Albuterol 0.083% Inhal Sol (2.5 mg/3 mL) UD IH STA (17:54)
[2017-05-22] MEDS ORDERED: Insulin Regular 100 units/ml IVP STA (18:20)
[2017-05-22] MEDS ORDERED: Dextrose 50% SYRINGE Inj (50 ml) IVP ONE (18:20)
--- NOTE | 2017-05-22 18:20 | ED PDOC ---
HPI: SOB/CHF/COPD Time Seen by Provider: 05/22/17 17:02 Chief Complaint (Nursing): Shortness Of Breath Chief Complaint (Provider): Shortness of breath History Per: Patient History/Exam Limitations: no limitations Onset/Duration Of Symptoms: Days (x1 week) Current Symptoms Are (Timing): Still Present Quality: Other (chest heaviness) Exacerbating Factor(s): Laying Flat Associated Symptoms: Productive Cough (with clear sputum), Ankle/Leg Swelling ( chronic). denies: Fever, Chills Additional Complaint(s): Jeanmarie Aguilar is an 82 year old male, with a past medical history of CAD, A-fib , HTN, diabetes, and left lower extremity venous occlusion, who presents to the emergency department complaining of a worsening shortness of breath associated with chest heaviness and productive cough with clear sputum ongoing for x1 week. Patient reports last night he was unable to lay down due to shortness of breath. He saw his PMD today and had an outpatient X-Ray that demonstrated acute CHF and was advised to come directly to the ER. Family reports that patient never had any history of heart failure, only severe CAD with CABG x3, angioplasty x3 and stent. Patient states that there is still an arterial collusion. He denies any fever or chills. No further medical complaints. PMD: Dr. Cesar [place] Gearcase Assembler: Juan Manuel Fontanez Past Medical History Reviewed: Historical Data, Nursing Documentation, Vital Signs Vital Signs: Last Vital Signs Temp 97.7 F 05/22/17 19:30 Pulse 76 05/22/17 19:30 Resp 18 05/22/17 19:30 BP 192/80 H 05/22/17 19:30 Pulse Ox 96 05/22/17 19:30 - Medical History PMH: Arthritis (hands), CAD, Cardia Arrhythmia, Diabetes, HTN, Seizures Denies: Chronic Kidney Disease Other PMH: left lower extremity venous occlusion - Surgical History Surgical History: CABG, Coronary Stent - Family History Family History: States: Unknown Family Hx - Immunization History Hx Tetanus Toxoid Vaccination: No Hx Influenza Vaccination: No Hx Pneumococcal Vaccination: No - Home Medications Home Medications: Ambulatory Orders Medication Instructions Recorded Clopidogrel [Plavix] 75 mg PO DAILY #0 tab 12/30/13 Aspirin [Ecotrin] 81 mg PO DAILY 09/01/16 Brimonidine Tartrate/Timolol 1 drop EACHEYE Q12 09/01/16 [Combigan 0.2%-0.5% Eye Drops] Rosuvastatin Calcium [Crestor] 20 mg PO DAILY 09/01/16 levETIRAcetam [Keppra] 500 mg PO BID 09/01/16 Atenolol [Tenormin] 50 mg PO Q12 05/22/17 Furosemide [Lasix] 40 mg PO DAILY 05/22/17 GlipiZIDE [Glucotrol] 10 mg PO DAILY 05/22/17 Melatonin [Melatonin] 10 mg PO HS PRN 05/22/17 Multivitamin [Multi-Vitamin Daily] 1 tab PO DAILY 05/22/17 NIFEdipine ER [Procardia XL] 90 mg PO DAILY 05/22/17 - Allergies Allergies/Adverse Reactions: Allergies Allergy/AdvReac Type Severity Reaction Status Date / Time No Known Allergies Allergy Verified 09/01/16 15:25 Review of Systems ROS Statement: Except As Marked, All Systems Reviewed And Found Negative Constitutional: Negative for: Fever, Chills Respiratory: Positive for: Cough (productive), Shortness of Breath, Sputum ( clear) Musculoskeletal: Positive for: Leg Pain (chronic left leg swelling, Not worst than usual. ) Physical Exam - Reviewed Nursing Documentation Reviewed: Yes Vital Signs Reviewed: Yes - Physical Exam Appears: Positive for: Uncomfortable, In Acute Distress Head Exam: Positive for: ATRAUMATIC, NORMAL INSPECTION, NORMOCEPHALIC Skin: Positive for: Normal Color, Warm, Dry Eye Exam: Positive for: Normal appearance, EOMI, PERRL ENT: Positive for: Other (tacky mucous membrane. ) Cardiovascular/Chest: Positive for: JVD Respiratory: Positive for: Decreased Breath Sounds (b/l at bases), Rales ( diffusely ), Respiratory Distress Extremity: Positive for: Pedal Edema (left lower extremity pitting edema. ). Negative for: Calf Tenderness - Laboratory Results Result Diagrams: 05/22/17 17:23 05/22/17 17:57 - ECG O2 Sat by Pulse Oximetry: 99 (RA) Pulse Ox Interpretation: Normal - Critical Care Total Time (In Min): 30 Documented Critical Care: Time excludes all time spent performint seperately billable procedures Medical Decision Making Medical Decision Making: Initial Impression: Acute CHF. Initial Plan: --Type and screen --VBG --EKG --B-Type Natriuretic --CMP --Magnesium --Phosphorus --Potassium --Troponin I Q8H --Urine dipstick --CBC w/ differential --PTT --PT --Chest portable [RAD] --Albuterol 0.083% Inhal Comfort 2.5 mg IH --Calcium Gluconate 4.65 meq Dextrose 5% in water 100 ml IV --Dextrose 50% Inj 50 ml IVP --HumuLIN R 10 units IVP --Lasix 60 mg IVP --Nitro-Bid 2% Oint 1 ea TOP --Vasotec IV 1.25 mg IVP --KayeXALATE Susp 30 gm PO --Blood culture --Peak flow pre/post Tx --Reevaluation -Patient will be hospitalized for acute CHF, pending ER work up. 17:51 CXR FINDINGS: LUNGS: Pulmonary vascular congestion. Compressive atelectasis right lower lobe. PLEURA: Large right pleural effusion. CARDIOVASCULAR: Cardiomegaly, evidence of acute congestive heart failure. Macro CABG OSSEOUS STRUCTURES: No significant abnormalities. VISUALIZED UPPER ABDOMEN: Normal. OTHER FINDINGS: None. IMPRESSION: Acute congestive heart failure. -X-Ray demonstrates severe vascular congestion with right sided pleural effusion. 18:25 -ER work up demonstrates elevated potassium, renal insufficiency, and elevated proBNP with negative Troponin. 18:40 -Discussed with Dr. Gamez, budget counselor, and Dr. Duncan, blueprint clerk. -Discussed with Dr. Peter Maza, MP for Dr. Diaz. -Discussed findings and plan of care with patient and family. Scribe Attestation: Documented by Tna Laird, acting as a scribe for Sade Lomas MD. Provider Scribe Attestation: All medical record entries made by the Scribe were at my direction and personally dictated by me. I have reviewed the chart and agree that the record accurately reflects my personal performance of the history, physical exam, medical decision making, and the department course for this patient. I have also personally directed, reviewed, and agree with the discharge instructions and disposition. Disposition - Clinical Impression Clinical Impression: Acute CHF, Renal insufficiency, Pleural effusion, Hyperkalemia - Disposition Disposition Time: 18:20 Condition: CRITICAL - Pt Status Changed To: Hospital Disposition Of: Inpatient - Admit Certification Admit to Inpatient:: After my assessment, the patient will require hospitalization for at least two midnights. This is because of the severity of symptoms shown, intensity of services needed, and/or the medical risk in this patient being treated as an outpatient. - POA Present On Arrival: None
[2017-05-22] MEDS ORDERED: Enoxaparin 80 mg Syringe SC STA (18:25)
[2017-05-22] MEDS ORDERED: Insulin Regular 100 units/ml ONE (18:28)
[2017-05-22] MEDS ORDERED: Dextrose 50% SYRINGE Inj (50 ml) ONE (18:29)
[2017-05-22] MEDS ORDERED: Albuterol 0.083% Inhal Sol (2.5 mg/3 mL) UD INH PRN (18:51)
[2017-05-22 18:56] LABS: ANISOCYTOSIS SLIGHT; BANDS 2 % (0-2); EOSINOPHIL 1 % (0-7); HYPOCHROMIC SLIGHT; LYMPHOCYTE 7 % (20-50); MICROCYTOSIS SLIGHT; MONOCYTE 4 % (0-10); NEUTROPHIL 86 % (42-75); OVALOCYTES SLIGHT; PLATELET ESTIMATE NORMAL (NORMAL); POIKILOCYTOSIS SLIGHT; SCHISTOCYTES SLIGHT; TOTAL CELLS COUNTED 100; TOXIC GRANULATION PRESENT
[2017-05-22 20:10] VITALS: BMI 21.9
[2017-05-22] MEDS: Insulin Regular 100 units/ml SC SCH (23:00)
[2017-05-23] MEDS: Insulin Regular 100 units/ml SC SCH ×4 (06:18→22:01)
--- NOTE | 2017-05-23 08:38 | CON ---
CRITICAL CARE CONSULTATION DATE: 05/22/2017 HISTORY OF PRESENT ILLNESS: The patient in ER, being admitted to ICU. The patient is seen and evaluated at the bedside at the request of ER physician. Past medical, surgical, and social history reviewed. Mr. Aguilar is an 82-year-old male, a known smoker with history of diabetes mellitus type 2, hypertension, hyperlipidemia, coronary artery disease, status post angioplasty, and coronary artery bypass graft surgery, also status post carotid artery stent on the left side completely occluded carotid on the right side, presented to emergency room with complaining of progressively worsening shortness of breath associated with cough nonproductive and chest congestion, unable to lie flat, and unable to sleep over night. In the ER, the patient's vital signs showed temperature afebrile, heart rate 72, respiratory rate 18, saturation 100% on oxygen 2 L nasal cannula, and blood pressure 280/80. The patient was noted to have [id number] respiratory distress. Lab data showed elevated potassium, elevated BUN and creatinine with hyperkalemia. Chest x-ray showed enlargement of the heart, bilateral pleural effusion. Examination is significant for bilateral pulmonary congestion, given 60 mg of Lasix, albuterol inhalation treatment, and Lasix 60 IV x1. The patient was also treated with D50, insulin, calcium gluconate, admitted to ICU for further evaluation and followup decompensated CHF. PAST MEDICAL HISTORY: As noted above. PAST SURGICAL HISTORY: Includes a CABG and stent to the left carotid artery. ALLERGIES: NONE DOCUMENTED. MEDICATIONS AT HOME: Include aspirin, atenolol, Plavix, furosemide, glipizide, Keppra, melatonin, multivitamin, nifedipine ER, Procardia XL, and Crestor. PHYSICAL EXAMINATION: GENERAL: Elderly male in [id number] respiratory distress. VITAL SIGNS: Afebrile, heart rate 74 and regular, blood pressure 190/70, respiratory rate 20, thoracoabdominal, using accessory muscles of respiration improved after diuretic, and saturation 99%. HEAD, EYES, EARS, NOSE AND THROAT: Pupils reactive. Conjunctivae pink. Sclerae are white. NECK: Supple. Trachea central. CHEST: AP diameter less than_ diameter, bilateral fine crepitations at the bases. HEART: Rhythm regular. S1 and S2 normal, S3, or gallop. ABDOMEN: Bowel sounds present. Soft. EXTREMITIES: Localized vitiligo on the left leg and chronic venous stasis changes. DP palpable reduced in intensity. NEUROLOGIC: Oriented to name, knows hospital, not to time, year 1989. LABORATORY DATA: WBC 14.2, hemoglobin 11.9, hematocrit 37.1, and platelet count of 328. Neutrophils 84, lymphocytes 6.6, and monocytes 8.1. PT 11.7, INR 1.1, and PTT 37.2. VBG; pH of 7.32 and lactate 1.4. SMA-7; sodium 139, potassium 6, chloride of 103, CO2 of 21, blood urea nitrogen 30, creatinine 1.7, glucose 226, calcium of 9.7, phosphorus 4.3, magnesium 2.1, total bilirubin 1.2, AST 35, ALT 32, alkaline phosphatase 130, and troponin less than 0.012. ProBNP 8680, total protein 8.1, and albumin 4.2. Serology influenza A and B negative. IMPRESSION AND PLAN: 1. Neurologic: Alert and awake, but oriented to name, place, but not to time, suspect early dementia. 2. Pulmonary: Acute hypoxic respiratory insufficiency secondary to pulmonary vascular congestion, bilateral pleural effusion with compressive atelectasis, possible superimposed respiratory infection. Continue oxygen supplement, albuterol inhalation 2.5 mg 3 mL via nebulizer q.6 hours, and ceftriaxone 1 g IV daily. 3. Cardiac: Acute on chronic heart failure, systolic versus diastolic. Continue diuretic 40 mg IV q.12 hours. Follow echocardiogram. Cardiology consult requested with Dr. Concepción Gamez, call placed from emergency room. Continue nifedipine ER 90 mg daily. 4. Gastrointestinal: No acute issues noted. 5. Renal: Hyperkalemia, status post insulin, D50, calcium gluconate follow with Kayexalate, follow repeat potassium. 6. Hematology. Leukocytosis secondary to superimposed respiratory infection. Anemia of chronic disease, stable. Continue deep venous thrombosis prophylaxis. Jose Luis Duncan MD MTDD
--- NOTE | 2017-05-23 08:57 | CP.PCM.HP ---
History of Present Illness - History of Present Illness History of Present Illness: pt admitted for chf w/ h/o cad. no f/c, n/v/d. no dyspnea or cp at present. nsr on monitor spo2 84-86 on ra. 93-94 on 2lpm pt has been confused but apperrs alert and cognizant at this time. bw noted cardio consult pending. Present on Admission - Present on Admission Any Indicators Present on Admission: Yes History of Uncontrolled Diabetes: Yes Review of Systems - Cardiovascular Cardiovascular: As Per HPI, Dyspnea on Exertion Past Patient History - Past Medical History & Family History Past Medical History?: Yes - Past Social History Smoking Status: Never Smoked - CARDIAC Hx Cardia Arrhythmia: Yes Hx Hypertension: Yes - PULMONARY Hx Respiratory Disorders: No - NEUROLOGICAL Hx Seizures: Yes - HEENT Hx HEENT Problems: Yes Other/Comment: hard of hearing - RENAL Hx Chronic Kidney Disease: No - ENDOCRINE/METABOLIC Hx Endocrine Disorders: Yes (DM) - HEMATOLOGICAL/ONCOLOGICAL Hx Blood Disorders: No - INTEGUMENTARY Hx Dermatological Problems: No - MUSCULOSKELETAL/RHEUMATOLOGICAL Hx Arthritis: Yes (hands) - GASTROINTESTINAL Hx Gastrointestinal Disorders: No - GENITOURINARY/GYNECOLOGICAL Hx Genitourinary Disorders: No Hx Prostate Cancer: Yes - PSYCHIATRIC Hx Psychophysiologic Disorder: No Hx Substance Use: No - SURGICAL HISTORY Hx Coronary Artery Bypass Graft: Yes Hx Coronary Stent: Yes - ANESTHESIA Hx Anesthesia: Yes Hx Anesthesia Reactions: No Hx Malignant Hyperthermia: No Meds Allergies/Adverse Reactions: Allergies Allergy/AdvReac Type Severity Reaction Status Date / Time No Known Allergies Allergy Verified 09/01/16 15:25 Physical Exam - Constitutional Appears: Well, Non-toxic, No Acute Distress - Head Exam Head Exam: ATRAUMATIC, NORMAL INSPECTION, NORMOCEPHALIC - Eye Exam Eye Exam: EOMI, Normal appearance, PERRL Pupil Exam: NORMAL ACCOMODATION, PERRL - ENT Exam ENT Exam: Mucous Membranes Moist, Normal Exam - Neck Exam Neck exam: Positive for: Normal Inspection - Respiratory Exam Respiratory Exam: Clear to Auscultation Bilateral, NORMAL BREATHING PATTERN - Cardiovascular Exam Cardiovascular Exam: REGULAR RHYTHM, RRR, +S1, +S2 - GI/Abdominal Exam GI & Abdominal Exam: Normal Bowel Sounds, Soft. absent: Tenderness - Extremities Exam Extremities exam: Positive for: full ROM, normal capillary refill, normal inspection, pedal pulses present - Back Exam Back exam: NORMAL INSPECTION - Neurological Exam Neurological exam: Alert, CN II-XII Intact, Normal Gait, Oriented x3, Reflexes Normal - Psychiatric Exam Psychiatric exam: Normal Affect, Normal Mood - Skin Skin Exam: Dry, Intact, Normal Color, Warm Results - Vital Signs Recent Vital Signs: Last Vital Signs Temp 98.9 F 05/23/17 08:00 Pulse 53 L 05/23/17 08:00 Resp 17 05/23/17 08:00 BP 137/53 L 05/23/17 08:00 Pulse Ox 99 05/23/17 08:00 - Labs Result Diagrams: 05/23/17 09:25 05/23/17 09:25 Labs: Laboratory Results - last 24 hr 05/22/17 05/22/17 05/22/17 17:23 17:23 17:23 WBC 14.2 H D RBC 4.55 Hgb 11.9 L Hct 37.1 MCV 81.7 MCH 26.1 L MCHC 31.9 L RDW 15.9 H Plt Count 328 D MPV 8.5 Neut % (Auto) 84.1 H Lymph % (Auto) 6.6 L [place] % (Auto) 8.1 Eos % (Auto) 0.4 Baso % (Auto) 0.8 Neut # (Auto) 11.9 H Lymph # (Auto) 0.9 L [place] # (Auto) 1.1 H Eos # (Auto) 0.1 Baso # (Auto) 0.1 Neutrophils % (Manual) 86 H Band Neutrophils % 2 Lymphocytes % (Manual) 7 L Monocytes % (Manual) 4 Eosinophils % (Manual) 1 Toxic Granulation Present Platelet Estimate Normal Hypochromasia (manual) Slight Poikilocytosis (manual Slight Anisocytosis (manual) Slight Microcytosis (manual) Slight Ovalocytes Slight Schistocytes Slight PT 11.7 INR 1.1 APTT 37.2 H pO2 VBG pH VBG pCO2 VBG HCO3 VBG Total CO2 VBG O2 Sat (Calc) VBG Base Excess VBG Potassium Glucose Lactate FiO2 Sodium 139 Potassium 6.0 H Chloride 103 Carbon Dioxide 21 L Anion Gap 21 H BUN 30 H Creatinine 1.7 H Est GFR ( Amer) 47 Est GFR (Non-Af Amer) 39 POC Glucose (mg/dL) Random Glucose 264 H Calcium 9.7 Phosphorus 4.3 Magnesium 2.1 Total Bilirubin 1.2 AST 35 ALT 32 Alkaline Phosphatase 130 H Troponin I < 0.0120 NT-Pro-B Natriuret Pep 8680 H Total Protein 8.1 Albumin 4.2 Globulin 3.9 Albumin/Globulin Ratio 1.1 Venous Blood Potassium Influenza Typ A,B (EIA) Blood Type Antibody Screen BBK History Checked 05/22/17 05/22/17 05/22/17 17:28 17:30 17:36 WBC RBC Hgb Hct MCV MCH MCHC RDW Plt Count MPV Neut % (Auto) Lymph % (Auto) [place] % (Auto) Eos % (Auto) Baso % (Auto) Neut # (Auto) Lymph # (Auto) [place] # (Auto) Eos # (Auto) Baso # (Auto) Neutrophils % (Manual) Band Neutrophils % Lymphocytes % (Manual) Monocytes % (Manual) Eosinophils % (Manual) Toxic Granulation Platelet Estimate Hypochromasia (manual) Poikilocytosis (manual Anisocytosis (manual) Microcytosis (manual) Ovalocytes Schistocytes PT INR APTT pO2 44 VBG pH 7.32 VBG pCO2 43 VBG HCO3 21.3 VBG Total CO2 23.5 VBG O2 Sat (Calc) 79.5 H VBG Base Excess -3.9 L VBG Potassium 5.9 H Glucose 259 H Lactate 1.4 FiO2 21.0 Sodium 136.0 Potassium Chloride 108.0 H Carbon Dioxide Anion Gap BUN Creatinine Est GFR ( Amer) Est GFR (Non-Af Amer) POC Glucose (mg/dL) 226 H Random Glucose Calcium Phosphorus Magnesium Total Bilirubin AST ALT Alkaline Phosphatase Troponin I NT-Pro-B Natriuret Pep Total Protein Albumin Globulin Albumin/Globulin Ratio Venous Blood Potassium 5.9 H Influenza Typ A,B (EIA) Blood Type O POSITIVE Antibody Screen Negative BBK History Checked Patient has bt 05/22/17 05/22/17 05/22/17 17:40 17:57 22:14 WBC RBC Hgb Hct MCV MCH MCHC RDW Plt Count MPV Neut % (Auto) Lymph % (Auto) [place] % (Auto) Eos % (Auto) Baso % (Auto) Neut # (Auto) Lymph # (Auto) [place] # (Auto) Eos # (Auto) Baso # (Auto) Neutrophils % (Manual) Band Neutrophils % Lymphocytes % (Manual) Monocytes % (Manual) Eosinophils % (Manual) Toxic Granulation Platelet Estimate Hypochromasia (manual) Poikilocytosis (manual Anisocytosis (manual) Microcytosis (manual) Ovalocytes Schistocytes PT INR APTT pO2 VBG pH VBG pCO2 VBG HCO3 VBG Total CO2 VBG O2 Sat (Calc) VBG Base Excess VBG Potassium Glucose Lactate FiO2 Sodium Potassium 5.9 H Chloride Carbon Dioxide Anion Gap BUN Creatinine Est GFR ( Amer) Est GFR (Non-Af Amer) POC Glucose (mg/dL) 153 H Random Glucose Calcium Phosphorus Magnesium Total Bilirubin AST ALT Alkaline Phosphatase Troponin I NT-Pro-B Natriuret Pep Total Protein Albumin Globulin Albumin/Globulin Ratio Venous Blood Potassium Influenza Typ A,B (EIA) Negative for flu a/b Blood Type Antibody Screen BBK History Checked 05/23/17 05:42 WBC RBC Hgb Hct MCV MCH MCHC RDW Plt Count MPV Neut % (Auto) Lymph % (Auto) [place] % (Auto) Eos % (Auto) Baso % (Auto) Neut # (Auto) Lymph # (Auto) [place] # (Auto) Eos # (Auto) Baso # (Auto) Neutrophils % (Manual) Band Neutrophils % Lymphocytes % (Manual) Monocytes % (Manual) Eosinophils % (Manual) Toxic Granulation Platelet Estimate Hypochromasia (manual) Poikilocytosis (manual Anisocytosis (manual) Microcytosis (manual) Ovalocytes Schistocytes PT INR APTT pO2 VBG pH VBG pCO2 VBG HCO3 VBG Total CO2 VBG O2 Sat (Calc) VBG Base Excess VBG Potassium Glucose Lactate FiO2 Sodium Potassium Chloride Carbon Dioxide Anion Gap BUN Creatinine Est GFR ( Amer) Est GFR (Non-Af Amer) POC Glucose (mg/dL) 96 Random Glucose Calcium Phosphorus Magnesium Total Bilirubin AST ALT Alkaline Phosphatase Troponin I NT-Pro-B Natriuret Pep Total Protein Albumin Globulin Albumin/Globulin Ratio Venous Blood Potassium Influenza Typ A,B (EIA) Blood Type Antibody Screen BBK History Checked Assessment & Plan (1) Diabetes type 2, uncontrolled Assessment and Plan: cont home meds fsbg diet control Status: Acute (2) Acute CHF Assessment and Plan: cardio icu lasix asa/plavix Status: Acute (3) Hyperkalemia Assessment and Plan: given calcium gluconate, kayexalte, insulin and dextrose given in ER monitor Status: Acute (4) DVT prophylaxis Assessment and Plan: scd nad aehose lovenox Status: Acute (5) CAD (coronary artery disease) Assessment and Plan: asa/plavix cardio Status: Acute Decision To Admit - Pt Status Changed To: Hospital Disposition Of: Inpatient - Admit Certification Admit to Inpatient:: After my assessment, the patient will require hospitalization for at least two midnights. This is because of the severity of symptoms shown, intensity of services needed, and/or the medical risk in this patient being treated as an outpatient. - . Bed Request Type: Intensive Care Admitting Physician: Tami Diaz
[2017-05-23] MEDS ORDERED: NIFEdipine 90 mg ER Tab PO SCH (09:00)
[2017-05-23] MEDS: Brimonidine 0.2% 50 DROP/5 ML BOTTLE OU SCH ×2 (09:04→21:57)
[2017-05-23] MEDS: Enoxaparin 30 mg Syringe SC SCH (09:05)
[2017-05-23] MEDS: NIFEdipine 90 mg ER Tab PO SCH (09:06)
[2017-05-23] MEDS: Multivitamin With Minerals Tab PO SCH (09:07)
[2017-05-23 09:42] LABS: HEMOGLOBIN 10.6 g/dL (12.0-18.0); MEAN CELL VOLUME 80.6 fl (80.0-94.0); MEAN CORPUSCULAR HEMOGLOBIN 26.6 pg (27.0-31.0); RED CELL DISTRIBUTION WIDTH 15.6 % (11.5-14.5); WHITE BLOOD COUNT 9.8 K/uL (4.8-10.8)
[2017-05-23 10:55] LABS: ALBUMIN 3.5 g/dL (3.5-5.0); CALCIUM 9.4 mg/dL (8.4-10.2)
--- NOTE | 2017-05-23 12:09 | CARD ---
APPROVED REPORT EKG Measurement Heart [id number] <Conclusion> Sinus rhythm with 1st degree AV block Left bundle branch block Abnormal ECG
--- NOTE | 2017-05-23 15:17 | PQF GENQUE ---
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 Assessment includes :Acute CHF cardio icu lasix asa/plavix Critical Care Assessment includes: - Acute on chronic heart failure, systolic versus diastolic. Continue diuretic 40 mg IV q.12 hours. Follow echo Cardio logy consult requested from ER. Continue nifedipine ER 90 mg daily. This form is a permanent part of the medical record Clarification of your documentation is requested to better reflect the severity of illness and intensity of treatment of your patient. Indicators present [] Specify: [] [] Specify: [] [] Specify: [] [] Specify: [] Location in the medical record that reflects the above clinical findings: [] Treatment Provided: [] PHYSICIAN'S RESPONSE Based on your medical judgment of the clinical indicators outlined above please clarify the following: [] Practitioner response h/o cad, chf is new finding [] If unable to determine, please check the box, sign and date. Present On Admission (POA) Indicator: [x] Present at the time of admission [] Not present at the time of admission [] Clinically Undetermined In responding to this query, please exercise your independent professional judgment. The fact that a question is asked does not imply that any particular answer is desired or expected. Thank you for your clarification on this documentation. If you have any questions please call. * Thank you, Jacqui Koch RN ext. #[phone] MTDD
--- NOTE | 2017-05-23 15:30 | PQF GENQUE ---
Dunia Maza NP, Is there an associated dx. to go along with the following clinical labs: BUN:30->29 Creatinine:1.7->1.9 Est GFR ( Amer/Non-Af Amer): 39->41/34 OR: Disagree OR: other explanation of clinical finding This form is a permanent part of the medical record Clarification of your documentation is requested to better reflect the severity of illness and intensity of treatment of your patient. Indicators present [] Specify: [] [] Specify: [] [] Specify: [] [] Specify: [] Location in the medical record that reflects the above clinical findings: [] Treatment Provided: [] PHYSICIAN'S RESPONSE Based on your medical judgment of the clinical indicators outlined above please clarify the following: [] Practitioner response SANJANA, likely r/t chf process/dehydration. will follow, nephro prn [] If unable to determine, please check the box, sign and date. Present On Admission (POA) Indicator: [x] Present at the time of admission [] Not present at the time of admission [] Clinically Undetermined In responding to this query, please exercise your independent professional judgment. The fact that a question is asked does not imply that any particular answer is desired or expected. Thank you for your clarification on this documentation. If you have any questions please call. * Thank you, Jacqui Koch RN ext. #[phone] MTDD
--- NOTE | 2017-05-23 16:17 | CP.PCM.CON ---
History of Present Illness - History of Present Illness History of Present Illness: I was asked to evaluate patient by Dr Maza. Patient is confused. 82 year old male with PMH HTN, hypercholestserolemia, DM CAD who presents with dyspnea. He was found to be in acute renal failure, and hyperkalemic. pro BNP was elevated. He was found to have peaked T waves on EKG therefore he was givne kayexalate, calcium gluconate. insulin D50. Patient does not cooperate with questioning. Review of Systems - Review of Systems Systems not reviewed;Unavailable: Uncooperative Past Patient History - Past Medical History & Family History Past Medical History?: Yes - Past Social History Smoking Status: Never Smoked - CARDIAC Hx Cardia Arrhythmia: Yes Hx Hypertension: Yes - PULMONARY Hx Respiratory Disorders: No - NEUROLOGICAL Hx Seizures: Yes - HEENT Hx HEENT Problems: Yes Other/Comment: hard of hearing - RENAL Hx Chronic Kidney Disease: No - ENDOCRINE/METABOLIC Hx Endocrine Disorders: Yes (DM) - HEMATOLOGICAL/ONCOLOGICAL Hx Blood Disorders: No - INTEGUMENTARY Hx Dermatological Problems: No - MUSCULOSKELETAL/RHEUMATOLOGICAL Hx Arthritis: Yes (hands) - GASTROINTESTINAL Hx Gastrointestinal Disorders: No - GENITOURINARY/GYNECOLOGICAL Hx Genitourinary Disorders: No Hx Prostate Cancer: Yes - PSYCHIATRIC Hx Psychophysiologic Disorder: No Hx Substance Use: No - SURGICAL HISTORY Hx Coronary Artery Bypass Graft: Yes Hx Coronary Stent: Yes - ANESTHESIA Hx Anesthesia: Yes Hx Anesthesia Reactions: No Hx Malignant Hyperthermia: No Meds Allergies/Adverse Reactions: Allergies Allergy/AdvReac Type Severity Reaction Status Date / Time No Known Allergies Allergy Verified 09/01/16 15:25 - Medications Medications: Current Medications Albuterol Sulfate (Albuterol 0.083% Inhal Comfort (2.5 Mg/3 Ml) Ud) 2.5 mg INH RQ6 PRN PRN Reason: Shortness of Breath Aspirin (Aspirin Chewable) 81 mg PO DAILY [facility] Last Admin: 05/23/17 09:04 Dose: 81 mg Atenolol (Tenormin) 50 mg PO DAILY [facility] Last Admin: 05/23/17 09:07 Dose: 50 mg Atorvastatin Calcium (Lipitor) 20 mg PO DAILY [facility] Last Admin: 05/23/17 09:05 Dose: 20 mg Brimonidine Tartrate (Alphagan 0.2% Opht) 1 drop OU Q12 [facility] Last Admin: 05/23/17 09:04 Dose: 1 drop Clopidogrel Bisulfate (Plavix) 75 mg PO DAILY [facility] Last Admin: 05/23/17 09:06 Dose: 75 mg Enoxaparin Sodium (Lovenox) 30 mg SC DAILY [facility] PRN Reason: Protocol Last Admin: 05/23/17 09:05 Dose: 30 mg Furosemide (Lasix) 40 mg IV Q12 [facility] Last Admin: 05/23/17 09:05 Dose: 40 mg Glipizide (Glucotrol) 10 mg PO DAILY [facility] Last Admin: 05/23/17 10:05 Dose: 10 mg Home Med (Melatonin [Melatonin]) 10 mg PO PRN PRN Reason: Insomnia Ceftriaxone Sodium 1 gm/ (Dextrose) 100 mls @ 100 mls/hr IVPB DAILY [facility] PRN Reason: Protocol Last Admin: 05/23/17 09:06 Dose: 100 mls/hr Insulin Human Regular (Humulin R) 0 units SC ACCU-CHECK [facility] PRN Reason: Protocol Last Admin: 05/23/17 11:13 Dose: 1 unit Levetiracetam (Keppra) 500 mg PO BID [facility] Last Admin: 05/23/17 09:05 Dose: 500 mg Multivitamins/Minerals (Therapeutic-M Tab) 1 tab PO DAILY [facility] Last Admin: 05/23/17 09:07 Dose: 1 tab Nifedipine (Procardia Xl) 90 mg PO DAILY [facility] Last Admin: 05/23/17 09:06 Dose: 90 mg Timolol Maleate (Timoptic 0.5% Ophth Soln) 1 drop OU Q12 [facility] Last Admin: 05/23/17 09:08 Dose: 1 drop Physical Exam - Constitutional Appears: Non-toxic - Head Exam Head Exam: NORMAL INSPECTION - Eye Exam Eye Exam: Normal appearance - ENT Exam ENT Exam: Mucous Membranes Moist - Neck Exam Neck exam: Positive for: Full Rom - Respiratory Exam Respiratory Exam: Decreased Breath Sounds - Cardiovascular Exam Cardiovascular Exam: REGULAR RHYTHM - GI/Abdominal Exam GI & Abdominal Exam: Normal Bowel Sounds - Rectal Exam Rectal Exam: Deferred - Extremities Exam Extremities exam: Positive for: pedal edema - Back Exam Back exam: NORMAL INSPECTION - Neurological Exam Neurological exam: Alert, Oriented x3 - Psychiatric Exam Psychiatric exam: Normal Affect - Skin Skin Exam: Normal Color Results - Vital Signs Recent Vital Signs: Last Vital Signs Temp 98.7 F 05/23/17 16:00 Pulse 51 L 05/23/17 16:00 Resp 17 05/23/17 16:00 BP 155/57 H 05/23/17 16:00 Pulse Ox 99 05/23/17 16:00 - Labs Result Diagrams: 05/25/17 08:30 05/25/17 08:30 Labs: Laboratory Results - last 24 hr 05/22/17 05/22/17 05/22/17 17:23 17:23 17:23 WBC 14.2 H D RBC 4.55 Hgb 11.9 L Hct 37.1 MCV 81.7 MCH 26.1 L MCHC 31.9 L RDW 15.9 H Plt Count 328 D MPV 8.5 Neut % (Auto) 84.1 H Lymph % (Auto) 6.6 L [place] % (Auto) 8.1 Eos % (Auto) 0.4 Baso % (Auto) 0.8 Neut # (Auto) 11.9 H Lymph # (Auto) 0.9 L [place] # (Auto) 1.1 H Eos # (Auto) 0.1 Baso # (Auto) 0.1 Neutrophils % (Manual) 86 H Band Neutrophils % 2 Lymphocytes % (Manual) 7 L Monocytes % (Manual) 4 Eosinophils % (Manual) 1 Toxic Granulation Present Platelet Estimate Normal Hypochromasia (manual) Slight Poikilocytosis (manual Slight Anisocytosis (manual) Slight Microcytosis (manual) Slight Ovalocytes Slight Schistocytes Slight PT 11.7 INR 1.1 APTT 37.2 H pO2 VBG pH VBG pCO2 VBG HCO3 VBG Total CO2 VBG O2 Sat (Calc) VBG Base Excess VBG Potassium Glucose Lactate FiO2 Sodium 139 Potassium 6.0 H Chloride 103 Carbon Dioxide 21 L Anion Gap 21 H BUN 30 H Creatinine 1.7 H Est GFR ( Amer) 47 Est GFR (Non-Af Amer) 39 POC Glucose (mg/dL) Random Glucose 264 H Calcium 9.7 Phosphorus 4.3 Magnesium 2.1 Total Bilirubin 1.2 AST 35 ALT 32 Alkaline Phosphatase 130 H Troponin I < 0.0120 NT-Pro-B Natriuret Pep 8680 H Total Protein 8.1 Albumin 4.2 Globulin 3.9 Albumin/Globulin Ratio 1.1 Venous Blood Potassium Influenza Typ A,B (EIA) Blood Type Antibody Screen BBK History Checked 05/22/17 05/22/17 05/22/17 17:28 17:30 17:36 WBC RBC Hgb Hct MCV MCH MCHC RDW Plt Count MPV Neut % (Auto) Lymph % (Auto) [place] % (Auto) Eos % (Auto) Baso % (Auto) Neut # (Auto) Lymph # (Auto) [place] # (Auto) Eos # (Auto) Baso # (Auto) Neutrophils % (Manual) Band Neutrophils % Lymphocytes % (Manual) Monocytes % (Manual) Eosinophils % (Manual) Toxic Granulation Platelet Estimate Hypochromasia (manual) Poikilocytosis (manual Anisocytosis (manual) Microcytosis (manual) Ovalocytes Schistocytes PT INR APTT pO2 44 VBG pH 7.32 VBG pCO2 43 VBG HCO3 21.3 VBG Total CO2 23.5 VBG O2 Sat (Calc) 79.5 H VBG Base Excess -3.9 L VBG Potassium 5.9 H Glucose 259 H Lactate 1.4 FiO2 21.0 Sodium 136.0 Potassium Chloride 108.0 H Carbon Dioxide Anion Gap BUN Creatinine Est GFR ( Amer) Est GFR (Non-Af Amer) POC Glucose (mg/dL) 226 H Random Glucose Calcium Phosphorus Magnesium Total Bilirubin AST ALT Alkaline Phosphatase Troponin I NT-Pro-B Natriuret Pep Total Protein Albumin Globulin Albumin/Globulin Ratio Venous Blood Potassium 5.9 H Influenza Typ A,B (EIA) Blood Type O POSITIVE Antibody Screen Negative BBK History Checked Patient has bt 05/22/17 05/22/17 05/22/17 17:40 17:57 22:14 WBC RBC Hgb Hct MCV MCH MCHC RDW Plt Count MPV Neut % (Auto) Lymph % (Auto) [place] % (Auto) Eos % (Auto) Baso % (Auto) Neut # (Auto) Lymph # (Auto) [place] # (Auto) Eos # (Auto) Baso # (Auto) Neutrophils % (Manual) Band Neutrophils % Lymphocytes % (Manual) Monocytes % (Manual) Eosinophils % (Manual) Toxic Granulation Platelet Estimate Hypochromasia (manual) Poikilocytosis (manual Anisocytosis (manual) Microcytosis (manual) Ovalocytes Schistocytes PT INR APTT pO2 VBG pH VBG pCO2 VBG HCO3 VBG Total CO2 VBG O2 Sat (Calc) VBG Base Excess VBG Potassium Glucose Lactate FiO2 Sodium Potassium 5.9 H Chloride Carbon Dioxide Anion Gap BUN Creatinine Est GFR ( Amer) Est GFR (Non-Af Amer) POC Glucose (mg/dL) 153 H Random Glucose Calcium Phosphorus Magnesium Total Bilirubin AST ALT Alkaline Phosphatase Troponin I NT-Pro-B Natriuret Pep Total Protein Albumin Globulin Albumin/Globulin Ratio Venous Blood Potassium Influenza Typ A,B (EIA) Negative for flu a/b Blood Type Antibody Screen BBK History Checked 05/23/17 05/23/17 05/23/17 05:42 09:25 09:25 WBC 9.8 RBC 4.00 L Hgb 10.6 L Hct 32.2 L MCV 80.6 MCH 26.6 L MCHC 33.0 RDW 15.6 H Plt Count 242 MPV Neut % (Auto) Lymph % (Auto) [place] % (Auto) Eos % (Auto) Baso % (Auto) Neut # (Auto) Lymph # (Auto) [place] # (Auto) Eos # (Auto) Baso # (Auto) Neutrophils % (Manual) Band Neutrophils % Lymphocytes % (Manual) Monocytes % (Manual) Eosinophils % (Manual) Toxic Granulation Platelet Estimate Hypochromasia (manual) Poikilocytosis (manual Anisocytosis (manual) Microcytosis (manual) Ovalocytes Schistocytes PT INR APTT pO2 VBG pH VBG pCO2 VBG HCO3 VBG Total CO2 VBG O2 Sat (Calc) VBG Base Excess VBG Potassium Glucose Lactate FiO2 Sodium Potassium Chloride Carbon Dioxide Anion Gap BUN Creatinine Est GFR ( Amer) Est GFR (Non-Af Amer) POC Glucose (mg/dL) 96 Random Glucose Calcium Phosphorus Magnesium Total Bilirubin AST ALT Alkaline Phosphatase Troponin I 0.0290 NT-Pro-B Natriuret Pep Total Protein Albumin Globulin Albumin/Globulin Ratio Venous Blood Potassium Influenza Typ A,B (EIA) Blood Type Antibody Screen BBK History Checked 05/23/17 05/23/17 05/23/17 09:25 11:02 13:47 WBC RBC Hgb Hct MCV MCH MCHC RDW Plt Count MPV Neut % (Auto) Lymph % (Auto) [place] % (Auto) Eos % (Auto) Baso % (Auto) Neut # (Auto) Lymph # (Auto) [place] # (Auto) Eos # (Auto) Baso # (Auto) Neutrophils % (Manual) Band Neutrophils % Lymphocytes % (Manual) Monocytes % (Manual) Eosinophils % (Manual) Toxic Granulation Platelet Estimate Hypochromasia (manual) Poikilocytosis (manual Anisocytosis (manual) Microcytosis (manual) Ovalocytes Schistocytes PT INR APTT pO2 VBG pH VBG pCO2 VBG HCO3 VBG Total CO2 VBG O2 Sat (Calc) VBG Base Excess VBG Potassium Glucose Lactate FiO2 Sodium 144 Potassium 3.9 Chloride 104 Carbon Dioxide 29 Anion Gap 15 BUN 29 H Creatinine 1.9 H Est GFR ( Amer) 41 Est GFR (Non-Af Amer) 34 POC Glucose (mg/dL) 162 H Random Glucose 127 H Calcium 9.4 Phosphorus Magnesium Total Bilirubin 1.0 AST 30 ALT 23 Alkaline Phosphatase 97 Troponin I 0.0240 NT-Pro-B Natriuret Pep Total Protein 7.0 Albumin 3.5 Globulin 3.5 Albumin/Globulin Ratio 1.0 Venous Blood Potassium Influenza Typ A,B (EIA) Blood Type Antibody Screen BBK History Checked - EKG Data EKG Interpreted by: Myself Assessment & Plan (1) Acute CHF Assessment and Plan: agree with admission to ICU. diuresis, correct potassium. check echocardiogram Status: Acute (2) CAD (coronary artery disease) Assessment and Plan: check cardiac enzymes Status: Acute (3) Diabetes type 2, uncontrolled Assessment and Plan: blood sugar control Status: Acute (4) Hyperkalemia Assessment and Plan: a above Status: Acute (5) Renal insufficiency Assessment and Plan: renal following Status: Acute
--- NOTE | 2017-05-23 16:17 | CP.PCM.CON ---
History of Present Illness - History of Present Illness History of Present Illness: patient seen/examined. not compliant with questioning. will check echocardigoram K corrected. Past Patient History - Past Medical History & Family History Past Medical History?: Yes - Past Social History Smoking Status: Never Smoked - CARDIAC Hx Cardia Arrhythmia: Yes Hx Hypertension: Yes - PULMONARY Hx Respiratory Disorders: No - NEUROLOGICAL Hx Seizures: Yes - HEENT Hx HEENT Problems: Yes Other/Comment: hard of hearing - RENAL Hx Chronic Kidney Disease: No - ENDOCRINE/METABOLIC Hx Endocrine Disorders: Yes (DM) - HEMATOLOGICAL/ONCOLOGICAL Hx Blood Disorders: No - INTEGUMENTARY Hx Dermatological Problems: No - MUSCULOSKELETAL/RHEUMATOLOGICAL Hx Arthritis: Yes (hands) - GASTROINTESTINAL Hx Gastrointestinal Disorders: No - GENITOURINARY/GYNECOLOGICAL Hx Genitourinary Disorders: No Hx Prostate Cancer: Yes - PSYCHIATRIC Hx Psychophysiologic Disorder: No Hx Substance Use: No - SURGICAL HISTORY Hx Coronary Artery Bypass Graft: Yes Hx Coronary Stent: Yes - ANESTHESIA Hx Anesthesia: Yes Hx Anesthesia Reactions: No Hx Malignant Hyperthermia: No Meds Allergies/Adverse Reactions: Allergies Allergy/AdvReac Type Severity Reaction Status Date / Time No Known Allergies Allergy Verified 09/01/16 15:25 - Medications Medications: Current Medications Albuterol Sulfate (Albuterol 0.083% Inhal Comfort (2.5 Mg/3 Ml) Ud) 2.5 mg INH RQ6 PRN PRN Reason: Shortness of Breath Aspirin (Aspirin Chewable) 81 mg PO DAILY [facility] Last Admin: 05/23/17 09:04 Dose: 81 mg Atenolol (Tenormin) 50 mg PO DAILY [facility] Last Admin: 05/23/17 09:07 Dose: 50 mg Atorvastatin Calcium (Lipitor) 20 mg PO DAILY [facility] Last Admin: 05/23/17 09:05 Dose: 20 mg Brimonidine Tartrate (Alphagan 0.2% Opht) 1 drop OU Q12 [facility] Last Admin: 05/23/17 09:04 Dose: 1 drop Clopidogrel Bisulfate (Plavix) 75 mg PO DAILY [facility] Last Admin: 05/23/17 09:06 Dose: 75 mg Enoxaparin Sodium (Lovenox) 30 mg SC DAILY [facility] PRN Reason: Protocol Last Admin: 05/23/17 09:05 Dose: 30 mg Furosemide (Lasix) 40 mg IV Q12 [facility] Last Admin: 05/23/17 09:05 Dose: 40 mg Glipizide (Glucotrol) 10 mg PO DAILY [facility] Last Admin: 05/23/17 10:05 Dose: 10 mg Home Med (Melatonin [Melatonin]) 10 mg PO HS PRN PRN Reason: Insomnia Ceftriaxone Sodium 1 gm/ (Dextrose) 100 mls @ 100 mls/hr IVPB DAILY [facility] PRN Reason: Protocol Last Admin: 05/23/17 09:06 Dose: 100 mls/hr Insulin Human Regular (Humulin R) 0 units SC ACCU-CHECK [facility] PRN Reason: Protocol Last Admin: 05/23/17 11:13 Dose: 1 unit Levetiracetam (Keppra) 500 mg PO BID [facility] Last Admin: 05/23/17 09:05 Dose: 500 mg Multivitamins/Minerals (Therapeutic-M Tab) 1 tab PO DAILY [facility] Last Admin: 05/23/17 09:07 Dose: 1 tab Nifedipine (Procardia Xl) 90 mg PO DAILY [facility] Last Admin: 05/23/17 09:06 Dose: 90 mg Timolol Maleate (Timoptic 0.5% [facility]) 1 drop OU Q12 [facility] Last Admin: 05/23/17 09:08 Dose: 1 drop Results - Vital Signs Recent Vital Signs: Last Vital Signs Temp 98.7 F 05/23/17 16:00 Pulse 51 L 05/23/17 16:00 Resp 17 05/23/17 16:00 BP 155/57 H 05/23/17 16:00 Pulse Ox 99 05/23/17 16:00 - Labs Result Diagrams: 05/23/17 09:25 05/23/17 09:25 Labs: Laboratory Results - last 24 hr 05/22/17 05/22/17 05/22/17 17:23 17:23 17:23 WBC 14.2 H D RBC 4.55 Hgb 11.9 L Hct 37.1 MCV 81.7 MCH 26.1 L MCHC 31.9 L RDW 15.9 H Plt Count 328 D MPV 8.5 Neut % (Auto) 84.1 H Lymph % (Auto) 6.6 L [place] % (Auto) 8.1 Eos % (Auto) 0.4 Baso % (Auto) 0.8 Neut # (Auto) 11.9 H Lymph # (Auto) 0.9 L [place] # (Auto) 1.1 H Eos # (Auto) 0.1 Baso # (Auto) 0.1 Neutrophils % (Manual) 86 H Band Neutrophils % 2 Lymphocytes % (Manual) 7 L Monocytes % (Manual) 4 Eosinophils % (Manual) 1 Toxic Granulation Present Platelet Estimate Normal Hypochromasia (manual) Slight Poikilocytosis (manual Slight Anisocytosis (manual) Slight Microcytosis (manual) Slight Ovalocytes Slight Schistocytes Slight PT 11.7 INR 1.1 APTT 37.2 H pO2 VBG pH VBG pCO2 VBG HCO3 VBG Total CO2 VBG O2 Sat (Calc) VBG Base Excess VBG Potassium Glucose Lactate FiO2 Sodium 139 Potassium 6.0 H Chloride 103 Carbon Dioxide 21 L Anion Gap 21 H BUN 30 H Creatinine 1.7 H Est GFR ( Amer) 47 Est GFR (Non-Af Amer) 39 POC Glucose (mg/dL) Random Glucose 264 H Calcium 9.7 Phosphorus 4.3 Magnesium 2.1 Total Bilirubin 1.2 AST 35 ALT 32 Alkaline Phosphatase 130 H Troponin I < 0.0120 NT-Pro-B Natriuret Pep 8680 H Total Protein 8.1 Albumin 4.2 Globulin 3.9 Albumin/Globulin Ratio 1.1 Venous Blood Potassium Influenza Typ A,B (EIA) Blood Type Antibody Screen BBK History Checked 05/22/17 05/22/17 05/22/17 17:28 17:30 17:36 WBC RBC Hgb Hct MCV MCH MCHC RDW Plt Count MPV Neut % (Auto) Lymph % (Auto) [place] % (Auto) Eos % (Auto) Baso % (Auto) Neut # (Auto) Lymph # (Auto) [place] # (Auto) Eos # (Auto) Baso # (Auto) Neutrophils % (Manual) Band Neutrophils % Lymphocytes % (Manual) Monocytes % (Manual) Eosinophils % (Manual) Toxic Granulation Platelet Estimate Hypochromasia (manual) Poikilocytosis (manual Anisocytosis (manual) Microcytosis (manual) Ovalocytes Schistocytes PT INR APTT pO2 44 VBG pH 7.32 VBG pCO2 43 VBG HCO3 21.3 VBG Total CO2 23.5 VBG O2 Sat (Calc) 79.5 H VBG Base Excess -3.9 L VBG Potassium 5.9 H Glucose 259 H Lactate 1.4 FiO2 21.0 Sodium 136.0 Potassium Chloride 108.0 H Carbon Dioxide Anion Gap BUN Creatinine Est GFR ( Amer) Est GFR (Non-Af Amer) POC Glucose (mg/dL) 226 H Random Glucose Calcium Phosphorus Magnesium Total Bilirubin AST ALT Alkaline Phosphatase Troponin I NT-Pro-B Natriuret Pep Total Protein Albumin Globulin Albumin/Globulin Ratio Venous Blood Potassium 5.9 H Influenza Typ A,B (EIA) Blood Type O POSITIVE Antibody Screen Negative BBK History Checked Patient has bt 05/22/17 05/22/17 05/22/17 17:40 17:57 22:14 WBC RBC Hgb Hct MCV MCH MCHC RDW Plt Count MPV Neut % (Auto) Lymph % (Auto) [place] % (Auto) Eos % (Auto) Baso % (Auto) Neut # (Auto) Lymph # (Auto) [place] # (Auto) Eos # (Auto) Baso # (Auto) Neutrophils % (Manual) Band Neutrophils % Lymphocytes % (Manual) Monocytes % (Manual) Eosinophils % (Manual) Toxic Granulation Platelet Estimate Hypochromasia (manual) Poikilocytosis (manual Anisocytosis (manual) Microcytosis (manual) Ovalocytes Schistocytes PT INR APTT pO2 VBG pH VBG pCO2 VBG HCO3 VBG Total CO2 VBG O2 Sat (Calc) VBG Base Excess VBG Potassium Glucose Lactate FiO2 Sodium Potassium 5.9 H Chloride Carbon Dioxide Anion Gap BUN Creatinine Est GFR ( Amer) Est GFR (Non-Af Amer) POC Glucose (mg/dL) 153 H Random Glucose Calcium Phosphorus Magnesium Total Bilirubin AST ALT Alkaline Phosphatase Troponin I NT-Pro-B Natriuret Pep Total Protein Albumin Globulin Albumin/Globulin Ratio Venous Blood Potassium Influenza Typ A,B (EIA) Negative for flu a/b Blood Type Antibody Screen BBK History Checked 05/23/17 05/23/17 05/23/17 05:42 09:25 09:25 WBC 9.8 RBC 4.00 L Hgb 10.6 L Hct 32.2 L MCV 80.6 MCH 26.6 L MCHC 33.0 RDW 15.6 H Plt Count 242 MPV Neut % (Auto) Lymph % (Auto) [place] % (Auto) Eos % (Auto) Baso % (Auto) Neut # (Auto) Lymph # (Auto) [place] # (Auto) Eos # (Auto) Baso # (Auto) Neutrophils % (Manual) Band Neutrophils % Lymphocytes % (Manual) Monocytes % (Manual) Eosinophils % (Manual) Toxic Granulation Platelet Estimate Hypochromasia (manual) Poikilocytosis (manual Anisocytosis (manual) Microcytosis (manual) Ovalocytes Schistocytes PT INR APTT pO2 VBG pH VBG pCO2 VBG HCO3 VBG Total CO2 VBG O2 Sat (Calc) VBG Base Excess VBG Potassium Glucose Lactate FiO2 Sodium Potassium Chloride Carbon Dioxide Anion Gap BUN Creatinine Est GFR ( Amer) Est GFR (Non-Af Amer) POC Glucose (mg/dL) 96 Random Glucose Calcium Phosphorus Magnesium Total Bilirubin AST ALT Alkaline Phosphatase Troponin I 0.0290 NT-Pro-B Natriuret Pep Total Protein Albumin Globulin Albumin/Globulin Ratio Venous Blood Potassium Influenza Typ A,B (EIA) Blood Type Antibody Screen BBK History Checked 05/23/17 05/23/17 05/23/17 09:25 11:02 13:47 WBC RBC Hgb Hct MCV MCH MCHC RDW Plt Count MPV Neut % (Auto) Lymph % (Auto) [place] % (Auto) Eos % (Auto) Baso % (Auto) Neut # (Auto) Lymph # (Auto) [place] # (Auto) Eos # (Auto) Baso # (Auto) Neutrophils % (Manual) Band Neutrophils % Lymphocytes % (Manual) Monocytes % (Manual) Eosinophils % (Manual) Toxic Granulation Platelet Estimate Hypochromasia (manual) Poikilocytosis (manual Anisocytosis (manual) Microcytosis (manual) Ovalocytes Schistocytes PT INR APTT pO2 VBG pH VBG pCO2 VBG HCO3 VBG Total CO2 VBG O2 Sat (Calc) VBG Base Excess VBG Potassium Glucose Lactate FiO2 Sodium 144 Potassium 3.9 Chloride 104 Carbon Dioxide 29 Anion Gap 15 BUN 29 H Creatinine 1.9 H Est GFR ( Amer) 41 Est GFR (Non-Af Amer) 34 POC Glucose (mg/dL) 162 H Random Glucose 127 H Calcium 9.4 Phosphorus Magnesium Total Bilirubin 1.0 AST 30 ALT 23 Alkaline Phosphatase 97 Troponin I 0.0240 NT-Pro-B Natriuret Pep Total Protein 7.0 Albumin 3.5 Globulin 3.5 Albumin/Globulin Ratio 1.0 Venous Blood Potassium Influenza Typ A,B (EIA) Blood Type Antibody Screen BBK History Checked
--- NOTE | 2017-05-23 18:01 | CP.CCUPN ---
CCU Subjective - Physician Review Subjective (Free Text): Required intermittent 1:1 supervision overnight by BRUSHER WARP and Nurse for agitation, confusion and disorientation to place and time, refused AM bloodwork today, required Haldol twice overnight for agitative delirium. Afebrile, no fever spikes overnight. No arrhythmias noted overnight given hyperkalemia. Other VS and I/Os reviewed. Achieved negative 2.0 L balance noted last 24H. ROS: No other pertinent negs or positives on 10+ system review. PMSFH: All other Nursing and physician documentation reviewed to date; no new pertinent info noted relevant to current medical problems. CXR: ( my interp): admission film shows bilat effusions, and R worse than L basilar interstitial changes. EXAM- HEENT: no icterus NECK: no visible JVD, supple, carotids equal upstroke bilat/no bruits CHEST: decreased BS bases with bibasilar crackles, no wheezes audible HEART: regular distant, S1S2, no murmur audible, no rubs. ABD: soft, no distention, no tympany, no palp tenderness, BS hypoactive EXT: +bilat edema. No peripheral/ digital cyanosis, no calf tenderness or palpable cords, distal pulses intact and symmetrical. NEURO: no gross focal motor deficits SKIN: no rashes LABS: on admission- WBC= 14.2 HGB= 11.9 PLTs= 328K Na= 139 K= 6.0 to 5.9 HCO3=21 CL= 101 BUN/Cr= 30/1.7 BS= 264 MAJOR PROBLEMS: 1. Acute Resp Insuff 2 Pulm edema, bilateral effusions, r/o R basilar pneumonia 2. Pulm Edema 2 Cardiomyopathy ( ischemic) 3. Hyperkalemia with Azotemia, r/o CKD versus YAMILETH 4. Chronic Disease Anemia 5. H/o CAD with PCTA PLAN: 1. Lasix IV as tolerated. 2. ECHO 3. Get more serial Trops, EKGs. 4. ASA, Plavix, Statin, BBs with Lopressor or Coreg. Consider stopping Tenormin and Procardia. 5. Monitor for increasing delirium. Get OOB to chair as tolerated. Family assistance for re-orientation. Move from ICU to regular bed if no invasive monitoring nor assisted breathing support anticipated. 6. Last known K= 5.9 at 6PM yesterday. Try to get repeat lytes BUN Cr. CCU Objective - Vital Signs / Intake & Output Vital Signs (Last 4 hours): Vital Signs Temp Pulse Resp BP Pulse Ox 05/23/17 16:00 98.7 F 51 L 17 155/57 H 99 Intake and Output (Last 8hrs): Intake & Output 05/23/17 05/23/17 05/23/17 06:59 14:59 22:59 Intake Total 0 760 100 Output Total 800 1100 Balance -800 -340 100 Weight 136 lb Intake: IV 0 Intake, Piggyback 100 Oral 660 100 Output: Urine 200 1100 Urine, Voided 200 1100 Urine/Stool Mix 600 Other: # Voids Urine, Voided 1 # Bowel Movements 2 - Medications Active Medications: Active Medications Generic Name Dose Route Start Last Admin Trade Name Freq PRN Reason Stop Dose Admin Albuterol Sulfate 2.5 mg 05/22/17 18:51 Albuterol 0.083% Inhal Comfort (2.5 Mg/3 Ml) Ud INH RQ6 PRN Shortness of Breath Aspirin 81 mg 05/23/17 09:00 05/23/17 09:04 Aspirin Chewable PO 81 mg DAILY [facility] Administration Atenolol 50 mg 05/23/17 09:00 05/23/17 09:07 Tenormin PO 50 mg DAILY [facility] Administration Atorvastatin Calcium 20 mg 05/23/17 09:00 05/23/17 09:05 Lipitor PO 20 mg DAILY [facility] Administration Brimonidine Tartrate 1 drop 05/23/17 09:00 05/23/17 09:04 Alphagan 0.2% Opht OU 1 drop Q12 [facility] Administration Clopidogrel Bisulfate 75 mg 05/23/17 09:00 05/23/17 09:06 Plavix PO 75 mg DAILY [facility] Administration Enoxaparin Sodium 30 mg 05/23/17 09:00 05/23/17 09:05 Lovenox SC 30 mg DAILY [facility] Administration Protocol Furosemide 40 mg 05/22/17 21:00 05/23/17 09:05 Lasix IV 40 mg Q12 [facility] Administration Glipizide 10 mg 05/23/17 09:00 05/23/17 10:05 Glucotrol PO 10 mg DAILY [facility] Administration Home Med 10 mg 05/23/17 06:38 Melatonin [Melatonin] PO HS PRN Insomnia Ceftriaxone Sodium 1 gm/ 100 mls @ 100 mls/hr 05/23/17 09:00 05/23/17 09:06 Dextrose IVPB 100 mls/hr DAILY [facility] Administration Protocol Insulin Human Regular 0 units 05/22/17 23:00 05/23/17 16:32 Humulin R SC Not Given ACCU-CHECK [facility] Protocol Levetiracetam 500 mg 05/22/17 19:00 05/23/17 16:34 Keppra PO 500 mg BID [facility] Administration Multivitamins/Minerals 1 tab 05/23/17 09:00 05/23/17 09:07 Therapeutic-M Tab PO 1 tab DAILY [facility] Administration Nifedipine 90 mg 05/23/17 09:00 05/23/17 09:06 Procardia Xl PO 90 mg DAILY [facility] Administration Timolol Maleate 1 drop 05/23/17 09:00 05/23/17 09:08 Timoptic 0.5% Ophth Soln OU 1 drop Q12 [facility] Administration - Patient Studies Lab Studies: Microbiology Studies 05/22/17 17:15 Blood Culture - Preliminary Blood-Venous NO GROWTH AFTER 24 HOURS 05/22/17 17:30 Blood Culture - Preliminary Blood-Venous NO GROWTH AFTER 24 HOURS Lab Studies 05/23/17 05/23/17 05/23/17 Range/Units 17:55 16:18 13:47 WBC (4.8-10.8) K/uL RBC (4.40-5.90) Mil/uL Hgb (12.0-18.0) g/dL Hct (35.0-51.0) % MCV (80.0-94.0) fl MCH (27.0-31.0) pg MCHC (33.0-37.0) g/dL RDW (11.5-14.5) % Plt Count (130-400) K/uL Neutrophils % (Manual) (42-75) % Band Neutrophils % (0-2) % Lymphocytes % (Manual) (20-50) % Monocytes % (Manual) (0-10) % Eosinophils % (Manual) (0-7) % Toxic Granulation Platelet Estimate (NORMAL) Hypochromasia (manual) Poikilocytosis (manual Anisocytosis (manual) Microcytosis (manual) Ovalocytes Schistocytes Sodium (132-148) mmol/l Potassium (3.6-5.0) MMOL/L Chloride (98-107) mmol/L Carbon Dioxide (22-30) mmol/L Anion Gap (10-20) BUN (9-20) mg/dl Creatinine (0.8-1.5) mg/dl Est GFR ( Amer) Est GFR (Non-Af Amer) POC Glucose (mg/dL) 161 H 53 L (65-110) mg/dL Random Glucose (75-110) mg/dL Calcium (8.4-10.2) mg/dL Total Bilirubin (0.2-1.3) mg/dl AST (17-59) U/L ALT (21-72) U/L Alkaline Phosphatase (38-126) U/L Troponin I 0.0240 (0.00-0.120) ng/mL Total Protein (6.3-8.2) G/DL Albumin (3.5-5.0) g/dL Globulin (2.2-3.9) gm/dL Albumin/Globulin Ratio (1.0-2.1) Influenza Typ A,B (EIA) (NEGATIVE) Blood Type Antibody Screen BBK History Checked 05/23/17 05/23/17 05/23/17 Range/Units 11:02 09:25 09:25 WBC 9.8 (4.8-10.8) K/uL RBC 4.00 L (4.40-5.90) Mil/uL Hgb 10.6 L (12.0-18.0) g/dL Hct 32.2 L (35.0-51.0) % MCV 80.6 (80.0-94.0) fl MCH 26.6 L (27.0-31.0) pg MCHC 33.0 (33.0-37.0) g/dL RDW 15.6 H (11.5-14.5) % Plt Count 242 (130-400) K/uL Neutrophils % (Manual) (42-75) % Band Neutrophils % (0-2) % Lymphocytes % (Manual) (20-50) % Monocytes % (Manual) (0-10) % Eosinophils % (Manual) (0-7) % Toxic Granulation Platelet Estimate (NORMAL) Hypochromasia (manual) Poikilocytosis (manual Anisocytosis (manual) Microcytosis (manual) Ovalocytes Schistocytes Sodium 144 (132-148) mmol/l Potassium 3.9 (3.6-5.0) MMOL/L Chloride 104 (98-107) mmol/L Carbon Dioxide 29 (22-30) mmol/L Anion Gap 15 (10-20) BUN 29 H (9-20) mg/dl Creatinine 1.9 H (0.8-1.5) mg/dl Est GFR ( Amer) 41 Est GFR (Non-Af Amer) 34 POC Glucose (mg/dL) 162 H (65-110) mg/dL Random Glucose 127 H (75-110) mg/dL Calcium 9.4 (8.4-10.2) mg/dL Total Bilirubin 1.0 (0.2-1.3) mg/dl AST 30 (17-59) U/L ALT 23 (21-72) U/L Alkaline Phosphatase 97 (38-126) U/L Troponin I (0.00-0.120) ng/mL Total Protein 7.0 (6.3-8.2) G/DL Albumin 3.5 (3.5-5.0) g/dL Globulin 3.5 (2.2-3.9) gm/dL Albumin/Globulin Ratio 1.0 (1.0-2.1) Influenza Typ A,B (EIA) (NEGATIVE) Blood Type Antibody Screen BBK History Checked 05/23/17 05/23/17 05/22/17 Range/Units 09:25 05:42 22:14 WBC (4.8-10.8) K/uL RBC (4.40-5.90) Mil/uL Hgb (12.0-18.0) g/dL Hct (35.0-51.0) % MCV (80.0-94.0) fl MCH (27.0-31.0) pg MCHC (33.0-37.0) g/dL RDW (11.5-14.5) % Plt Count (130-400) K/uL Neutrophils % (Manual) (42-75) % Band Neutrophils % (0-2) % Lymphocytes % (Manual) (20-50) % Monocytes % (Manual) (0-10) % Eosinophils % (Manual) (0-7) % Toxic Granulation Platelet Estimate (NORMAL) Hypochromasia (manual) Poikilocytosis (manual Anisocytosis (manual) Microcytosis (manual) Ovalocytes Schistocytes Sodium (132-148) mmol/l Potassium (3.6-5.0) MMOL/L Chloride (98-107) mmol/L Carbon Dioxide (22-30) mmol/L Anion Gap (10-20) BUN (9-20) mg/dl Creatinine (0.8-1.5) mg/dl Est GFR ( Amer) Est GFR (Non-Af Amer) POC Glucose (mg/dL) 96 153 H (65-110) mg/dL Random Glucose (75-110) mg/dL Calcium (8.4-10.2) mg/dL Total Bilirubin (0.2-1.3) mg/dl AST (17-59) U/L ALT (21-72) U/L Alkaline Phosphatase (38-126) U/L Troponin I 0.0290 (0.00-0.120) ng/mL Total Protein (6.3-8.2) G/DL Albumin (3.5-5.0) g/dL Globulin (2.2-3.9) gm/dL Albumin/Globulin Ratio (1.0-2.1) Influenza Typ A,B (EIA) (NEGATIVE) Blood Type Antibody Screen BBK History Checked 05/22/17 05/22/17 05/22/17 Range/Units 17:57 17:40 17:30 WBC (4.8-10.8) K/uL RBC (4.40-5.90) Mil/uL Hgb (12.0-18.0) g/dL Hct (35.0-51.0) % MCV (80.0-94.0) fl MCH (27.0-31.0) pg MCHC (33.0-37.0) g/dL RDW (11.5-14.5) % Plt Count (130-400) K/uL Neutrophils % (Manual) (42-75) % Band Neutrophils % (0-2) % Lymphocytes % (Manual) (20-50) % Monocytes % (Manual) (0-10) % Eosinophils % (Manual) (0-7) % Toxic Granulation Platelet Estimate (NORMAL) Hypochromasia (manual) Poikilocytosis (manual Anisocytosis (manual) Microcytosis (manual) Ovalocytes Schistocytes Sodium (132-148) mmol/l Potassium 5.9 H (3.6-5.0) MMOL/L Chloride (98-107) mmol/L Carbon Dioxide (22-30) mmol/L Anion Gap (10-20) BUN (9-20) mg/dl Creatinine (0.8-1.5) mg/dl Est GFR ( Amer) Est GFR (Non-Af Amer) POC Glucose (mg/dL) (65-110) mg/dL Random Glucose (75-110) mg/dL Calcium (8.4-10.2) mg/dL Total Bilirubin (0.2-1.3) mg/dl AST (17-59) U/L ALT (21-72) U/L Alkaline Phosphatase (38-126) U/L Troponin I (0.00-0.120) ng/mL Total Protein (6.3-8.2) G/DL Albumin (3.5-5.0) g/dL Globulin (2.2-3.9) gm/dL Albumin/Globulin Ratio (1.0-2.1) Influenza Typ A,B (EIA) Negative for flu a/b (NEGATIVE) Blood Type O POSITIVE Antibody Screen Negative BBK History Checked Patient has bt 05/22/17 05/22/17 Range/Units 17:23 17:23 WBC (4.8-10.8) K/uL RBC (4.40-5.90) Mil/uL Hgb (12.0-18.0) g/dL Hct (35.0-51.0) % MCV (80.0-94.0) fl MCH (27.0-31.0) pg MCHC (33.0-37.0) g/dL RDW (11.5-14.5) % Plt Count (130-400) K/uL Neutrophils % (Manual) 86 H (42-75) % Band Neutrophils % 2 (0-2) % Lymphocytes % (Manual) 7 L (20-50) % Monocytes % (Manual) 4 (0-10) % Eosinophils % (Manual) 1 (0-7) % Toxic Granulation Present Platelet Estimate Normal (NORMAL) Hypochromasia (manual) Slight Poikilocytosis (manual Slight Anisocytosis (manual) Slight Microcytosis (manual) Slight Ovalocytes Slight Schistocytes Slight Sodium (132-148) mmol/l Potassium 6.0 H (3.6-5.0) MMOL/L Chloride (98-107) mmol/L Carbon Dioxide (22-30) mmol/L Anion Gap (10-20) BUN (9-20) mg/dl Creatinine (0.8-1.5) mg/dl Est GFR ( Amer) Est GFR (Non-Af Amer) POC Glucose (mg/dL) (65-110) mg/dL Random Glucose (75-110) mg/dL Calcium (8.4-10.2) mg/dL Total Bilirubin (0.2-1.3) mg/dl AST (17-59) U/L ALT (21-72) U/L Alkaline Phosphatase (38-126) U/L Troponin I (0.00-0.120) ng/mL Total Protein (6.3-8.2) G/DL Albumin (3.5-5.0) g/dL Globulin (2.2-3.9) gm/dL Albumin/Globulin Ratio (1.0-2.1) Influenza Typ A,B (EIA) (NEGATIVE) Blood Type Antibody Screen BBK History Checked Laboratory Results - last 24 hr 05/22/17 05/22/17 05/22/17 17:23 17:23 17:30 WBC RBC Hgb Hct MCV MCH MCHC RDW Plt Count Neutrophils % (Manual) 86 H Band Neutrophils % 2 Lymphocytes % (Manual) 7 L Monocytes % (Manual) 4 Eosinophils % (Manual) 1 Toxic Granulation Present Platelet Estimate Normal Hypochromasia (manual) Slight Poikilocytosis (manual Slight Anisocytosis (manual) Slight Microcytosis (manual) Slight Ovalocytes Slight Schistocytes Slight Sodium Potassium 6.0 H Chloride Carbon Dioxide Anion Gap BUN Creatinine Est GFR ( Amer) Est GFR (Non-Af Amer) POC Glucose (mg/dL) Random Glucose Calcium Total Bilirubin AST ALT Alkaline Phosphatase Troponin I Total Protein Albumin Globulin Albumin/Globulin Ratio Influenza Typ A,B (EIA) Blood Type O POSITIVE Antibody Screen Negative BBK History Checked Patient has bt 05/22/17 05/22/17 05/22/17 17:40 17:57 22:14 WBC RBC Hgb Hct MCV MCH MCHC RDW Plt Count Neutrophils % (Manual) Band Neutrophils % Lymphocytes % (Manual) Monocytes % (Manual) Eosinophils % (Manual) Toxic Granulation Platelet Estimate Hypochromasia (manual) Poikilocytosis (manual Anisocytosis (manual) Microcytosis (manual) Ovalocytes Schistocytes Sodium Potassium 5.9 H Chloride Carbon Dioxide Anion Gap BUN Creatinine Est GFR ( Amer) Est GFR (Non-Af Amer) POC Glucose (mg/dL) 153 H Random Glucose Calcium Total Bilirubin AST ALT Alkaline Phosphatase Troponin I Total Protein Albumin Globulin Albumin/Globulin Ratio Influenza Typ A,B (EIA) Negative for flu a/b Blood Type Antibody Screen BBK History Checked 05/23/17 05/23/17 05/23/17 05:42 09:25 09:25 WBC 9.8 RBC 4.00 L Hgb 10.6 L Hct 32.2 L MCV 80.6 MCH 26.6 L MCHC 33.0 RDW 15.6 H Plt Count 242 Neutrophils % (Manual) Band Neutrophils % Lymphocytes % (Manual) Monocytes % (Manual) Eosinophils % (Manual) Toxic Granulation Platelet Estimate Hypochromasia (manual) Poikilocytosis (manual Anisocytosis (manual) Microcytosis (manual) Ovalocytes Schistocytes Sodium Potassium Chloride Carbon Dioxide Anion Gap BUN Creatinine Est GFR ( Amer) Est GFR (Non-Af Amer) POC Glucose (mg/dL) 96 Random Glucose Calcium Total Bilirubin AST ALT Alkaline Phosphatase Troponin I 0.0290 Total Protein Albumin Globulin Albumin/Globulin Ratio Influenza Typ A,B (EIA) Blood Type Antibody Screen BBK History Checked 05/23/17 05/23/17 05/23/17 09:25 11:02 13:47 WBC RBC Hgb Hct MCV MCH MCHC RDW Plt Count Neutrophils % (Manual) Band Neutrophils % Lymphocytes % (Manual) Monocytes % (Manual) Eosinophils % (Manual) Toxic Granulation Platelet Estimate Hypochromasia (manual) Poikilocytosis (manual Anisocytosis (manual) Microcytosis (manual) Ovalocytes Schistocytes Sodium 144 Potassium 3.9 Chloride 104 Carbon Dioxide 29 Anion Gap 15 BUN 29 H Creatinine 1.9 H Est GFR ( Amer) 41 Est GFR (Non-Af Amer) 34 POC Glucose (mg/dL) 162 H Random Glucose 127 H Calcium 9.4 Total Bilirubin 1.0 AST 30 ALT 23 Alkaline Phosphatase 97 Troponin I 0.0240 Total Protein 7.0 Albumin 3.5 Globulin 3.5 Albumin/Globulin Ratio 1.0 Influenza Typ A,B (EIA) Blood Type Antibody Screen BBK History Checked 05/23/17 05/23/17 16:18 17:55 WBC RBC Hgb Hct MCV MCH MCHC RDW Plt Count Neutrophils % (Manual) Band Neutrophils % Lymphocytes % (Manual) Monocytes % (Manual) Eosinophils % (Manual) Toxic Granulation Platelet Estimate Hypochromasia (manual) Poikilocytosis (manual Anisocytosis (manual) Microcytosis (manual) Ovalocytes Schistocytes Sodium Potassium Chloride Carbon Dioxide Anion Gap BUN Creatinine Est GFR ( Amer) Est GFR (Non-Af Amer) POC Glucose (mg/dL) 53 L 161 H Random Glucose Calcium Total Bilirubin AST ALT Alkaline Phosphatase Troponin I Total Protein Albumin Globulin Albumin/Globulin Ratio Influenza Typ A,B (EIA) Blood Type Antibody Screen BBK History Checked EKG/Cardiology Studies: Cardiology / EKG Studies 05/22/17 17:17 ELECTROCARDIOGRAM Stat Comment: Mode Of Transportation: Reason For Exam: sob Fingerstick Blood Sugar Results: 53 Review of Systems - Review of Systems All systems: reviewed and no additional remarkable complaints except (as above) Critical Care Progress Note - Nutrition Nutrition: Nutrition Category Date Time Status Heart Healthy Diet [DIET] Diets 05/23/17 Breakfast Active
[2017-05-24 05:03] LABS: HEMOGLOBIN 10.8 g/dL (12.0-18.0); MEAN CELL VOLUME 80.2 fl (80.0-94.0); MEAN CORPUSCULAR HEMOGLOBIN 26.6 pg (27.0-31.0); MEAN CORPUSCULAR HGB CONC 33.1 g/dL (33.0-37.0); RBC 4.08 Mil/uL (4.40-5.90); RED CELL DISTRIBUTION WIDTH 15.6 % (11.5-14.5); WHITE BLOOD COUNT 8.9 K/uL (4.8-10.8)
[2017-05-24 05:08] LABS: CALCIUM 9.2 mg/dL (8.4-10.2)
--- NOTE | 2017-05-24 07:44 | CP.PCM.PN ---
Subjective - Date & Time of Evaluation Date of Evaluation: 05/24/17 Time of Evaluation: 07:43 - Subjective Subjective: pt doing well. w/o dyspnea, cp. no f/c, n/v/d. bw noted w/ bun/cr rising slightly. spo2 100% on nc. pendign echo today consults appriciated. Objective - Vital Signs/Intake and Output Vital Signs (last 24 hours): Temp Pulse Resp BP Pulse Ox 98.5 F 57 L 20 177/64 H 97 05/24/17 04:00 05/24/17 04:00 05/24/17 04:00 05/24/17 04:00 05/24/17 04:00 Intake and Output: 05/24/17 05/24/17 06:59 18:59 Intake Total 50 Output Total 850 Balance -800 - Medications Medications: Current Medications Albuterol Sulfate (Albuterol 0.083% Inhal Comfort (2.5 Mg/3 Ml) Ud) 2.5 mg INH RQ6 PRN PRN Reason: Shortness of Breath Aspirin (Aspirin Chewable) 81 mg PO DAILY [facility] Last Admin: 05/23/17 09:04 Dose: 81 mg Atenolol (Tenormin) 50 mg PO DAILY [facility] Last Admin: 05/23/17 09:07 Dose: 50 mg Atorvastatin Calcium (Lipitor) 20 mg PO DAILY [facility] Last Admin: 05/23/17 09:05 Dose: 20 mg Brimonidine Tartrate (Alphagan 0.2% Opht) 1 drop OU Q12 [facility] Last Admin: 05/23/17 21:57 Dose: 1 drop Clopidogrel Bisulfate (Plavix) 75 mg PO DAILY [facility] Last Admin: 05/23/17 09:06 Dose: 75 mg Enoxaparin Sodium (Lovenox) 30 mg SC DAILY [facility] PRN Reason: Protocol Last Admin: 05/23/17 09:05 Dose: 30 mg Furosemide (Lasix) 40 mg IV Q12 [facility] Last Admin: 05/23/17 21:58 Dose: 40 mg Glipizide (Glucotrol) 10 mg PO DAILY [facility] Last Admin: 05/23/17 10:05 Dose: 10 mg Home Med (Melatonin [Melatonin]) 10 mg PO HS PRN PRN Reason: Insomnia Ceftriaxone Sodium 1 gm/ (Dextrose) 100 mls @ 100 mls/hr IVPB DAILY [facility] PRN Reason: Protocol Last Admin: 05/23/17 09:06 Dose: 100 mls/hr Insulin Human Regular (Humulin R) 0 units SC ACCU-CHECK [facility] PRN Reason: Protocol Last Admin: 05/23/17 22:01 Dose: Not Given Levetiracetam (Keppra) 500 mg PO BID [facility] Last Admin: 05/23/17 16:34 Dose: 500 mg Multivitamins/Minerals (Therapeutic-M Tab) 1 tab PO DAILY [facility] Last Admin: 05/23/17 09:07 Dose: 1 tab Nifedipine (Procardia Xl) 90 mg PO DAILY [facility] Last Admin: 05/23/17 09:06 Dose: 90 mg Timolol Maleate (Timoptic 0.5% Oph Soln) 1 drop OU Q12 [facility] Last Admin: 05/23/17 21:58 Dose: 1 drop - Labs Labs: 05/24/17 04:19 05/24/17 04:19 PT 11.7 Seconds (9.8-13.1) 05/22/17 17:23 INR 1.1 (0.9-1.2) 05/22/17 17:23 APTT 37.2 Seconds (25.6-37.1) H 05/22/17 17:23 - Constitutional Appears: Well, Non-toxic, No Acute Distress - Head Exam Head Exam: ATRAUMATIC, NORMAL INSPECTION, NORMOCEPHALIC - Eye Exam Eye Exam: EOMI, Normal appearance, PERRL Pupil Exam: NORMAL ACCOMODATION, PERRL - ENT Exam ENT Exam: Mucous Membranes Moist, Normal Exam - Neck Exam Neck Exam: Full ROM, Normal Inspection. absent: Lymphadenopathy - Respiratory Exam Respiratory Exam: Clear to Ausculation Bilateral, NORMAL BREATHING PATTERN - Cardiovascular Exam Cardiovascular Exam: REGULAR RHYTHM, RRR, +S1, +S2. absent: Murmur - GI/Abdominal Exam GI & Abdominal Exam: Soft, Normal Bowel Sounds. absent: Tenderness - Extremities Exam Extremities Exam: Full ROM, Normal Capillary Refill, Normal Inspection. absent : Joint Swelling, Pedal Edema - Back Exam Back Exam: NORMAL INSPECTION - Neurological Exam Neurological Exam: Alert, Awake, CN II-XII Intact, Normal Gait, Oriented x3 - Psychiatric Exam Psychiatric exam: Normal Affect, Normal Mood - Skin Skin Exam: Dry, Intact, Normal Color, Warm Assessment and Plan (1) Diabetes type 2, uncontrolled Status: Acute (2) Acute CHF Status: Acute (3) Hyperkalemia Status: Acute (4) DVT prophylaxis Status: Acute (5) CAD (coronary artery disease) Status: Acute - Assessment and Plan (Free Text) Assessment: (1) Diabetes type 2, uncontrolled Assessment and Plan: cont home meds fsbg diet control Status: Acute (2) Acute CHF Assessment and Plan: cardio icu lasix asa/plavix echo Status: Acute (3) Hyperkalemia Assessment and Plan: given calcium gluconate, kayexalte, insulin and dextrose given in ER monitor Status: Acute (4) DVT prophylaxis Assessment and Plan: scd nad aehose lovenox Status: Acute (5) CAD (coronary artery disease) Assessment and Plan: asa/plavix cardio Status: Acute [id number]
[2017-05-24] MEDS: Insulin Regular 100 units/ml SC SCH ×4 (08:14→23:00)
[2017-05-24] MEDS: NIFEdipine 90 mg ER Tab PO SCH (09:20)
[2017-05-24] MEDS: Enoxaparin 30 mg Syringe SC SCH (09:20)
[2017-05-24] MEDS: Brimonidine 0.2% 50 DROP/5 ML BOTTLE OU SCH ×2 (09:20→20:41)
[2017-05-24] MEDS: Multivitamin With Minerals Tab PO SCH (09:21)
[2017-05-24] MEDS ORDERED: Potassium Chloride 20 mEq/15 ml LIQ UD PO ONE (09:59)
--- NOTE | 2017-05-24 10:18 | CP.CCUPN ---
CCU Subjective - Physician Review Subjective (Free Text): Calm today; having bigeminy, K now 3.6 this AM. Other VS and I/Os reviewed. Achieved negative 1.1 L balance noted last 24H. ROS: No other pertinent negs or positives on 10+ system review. PMSFH: All other Nursing and physician documentation reviewed to date; no new pertinent info noted relevant to current medical problems. CXR: ( my interp): admission film shows bilat effusions, and R worse than L basilar interstitial changes. EXAM- HEENT: no icterus NECK: no visible JVD, supple, carotids equal upstroke bilat/no bruits CHEST: decreased BS bases with bibasilar crackles, no wheezes audible HEART: regular distant, S1S2, no murmur audible, no rubs. ABD: soft, no distention, no tympany, no palp tenderness, BS hypoactive EXT: +bilat edema. No peripheral/ digital cyanosis, no calf tenderness or palpable cords, distal pulses intact and symmetrical. NEURO: no gross focal motor deficits SKIN: no rashes LABS: on admission- WBC= 8.9 HGB= 10.8 PLTs= 258K Na= 144 K= 3.6 HCO3= 31 CL= 101 BUN/Cr= 34/2.1 BS= 264 MAJOR PROBLEMS: 1. Acute Resp Insuff 2 Pulm edema, bilateral effusions, r/o R basilar pneumonia 2. Pulm Edema 2 Cardiomyopathy ( ischemic) 3. Hyperkalemia with Azotemia, r/o CKD versus YAMILETH 4. Chronic Disease Anemia 5. H/o CAD with PCTA PLAN: 1. Reduced Lasix IV to QD as tolerated. 2. ECHO 3. Negative serial Trops, EKGs. 4. ASA, Plavix, Statin, BBs with Lopressor or Coreg. Consider stopping Tenormin and Procardia. 5. Monitor for increasing delirium. Get OOB to chair as tolerated. Family assistance for re-orientation. Move from ICU to regular bed if no invasive monitoring nor assisted breathing support anticipated. 6. May need some K supplementation today in view of increasing bigeminy. CCU Objective - Vital Signs / Intake & Output Vital Signs (Last 4 hours): Vital Signs Temp Pulse Resp BP Pulse Ox 05/24/17 09:21 174/66 H 05/24/17 09:19 174/66 H 05/24/17 08:00 98.1 F 59 L 21 164/60 H 100 Intake and Output (Last 8hrs): Intake & Output 05/23/17 05/24/17 05/24/17 22:59 06:59 14:59 Intake Total 250 0 Output Total 600 450 Balance -350 -450 0 Weight 136 lb Intake: IV 0 Oral 250 Output: Urine 600 450 Urine, Voided 600 450 - Medications Active Medications: Active Medications Generic Name Dose Route Start Last Admin Trade Name Freq PRN Reason Stop Dose Admin Albuterol Sulfate 2.5 mg 05/22/17 18:51 Albuterol 0.083% Inhal Comfort (2.5 Mg/3 Ml) Ud INH RQ6 PRN Shortness of Breath Aspirin 81 mg 05/23/17 09:00 05/24/17 09:20 Aspirin Chewable PO 81 mg DAILY [facility] Administration Atenolol 50 mg 05/23/17 09:00 05/24/17 09:21 Tenormin PO 50 mg DAILY [facility] Administration Atorvastatin Calcium 20 mg 05/23/17 09:00 05/24/17 09:20 Lipitor PO 20 mg DAILY [facility] Administration Brimonidine Tartrate 1 drop 05/23/17 09:00 05/24/17 09:20 Alphagan 0.2% Opht OU 1 drop Q12 [facility] Administration Clopidogrel Bisulfate 75 mg 05/23/17 09:00 05/24/17 09:20 Plavix PO 75 mg DAILY [facility] Administration Enoxaparin Sodium 30 mg 05/23/17 09:00 05/24/17 09:20 Lovenox SC 30 mg DAILY [facility] Administration Protocol Furosemide 40 mg 05/25/17 09:00 Lasix IV DAILY [facility] Glipizide 10 mg 05/23/17 09:00 05/24/17 09:20 Glucotrol PO 10 mg DAILY [facility] Administration Home Med 10 mg 05/23/17 06:38 Melatonin [Melatonin] PO HS PRN Insomnia Ceftriaxone Sodium 1 gm/ 100 mls @ 100 mls/hr 05/23/17 09:00 05/24/17 09:16 Dextrose IVPB 100 mls/hr DAILY [facility] Administration Protocol Insulin Human Regular 0 units 05/22/17 23:00 05/24/17 08:14 Humulin R SC Not Given ACCU-CHECK [facility] Protocol Levetiracetam 500 mg 05/22/17 19:00 05/24/17 09:20 Keppra PO 500 mg BID [facility] Administration Multivitamins/Minerals 1 tab 05/23/17 09:00 05/24/17 09:21 Therapeutic-M Tab PO 1 tab DAILY [facility] Administration Nifedipine 90 mg 05/23/17 09:00 05/24/17 09:20 Procardia Xl PO 90 mg DAILY [facility] Administration Timolol Maleate 1 drop 05/23/17 09:00 05/24/17 09:20 Timoptic 0.5% Ophth Soln OU 1 drop Q12 [facility] Administration - Patient Studies Lab Studies: Microbiology Studies 05/22/17 17:15 Blood Culture - Preliminary Blood-Venous NO GROWTH AFTER 24 HOURS 05/22/17 17:30 Blood Culture - Preliminary Blood-Venous NO GROWTH AFTER 24 HOURS Lab Studies 05/24/17 05/24/17 05/24/17 Range/Units 05:33 04:19 04:19 WBC 8.9 (4.8-10.8) K/uL RBC 4.08 L (4.40-5.90) Mil/uL Hgb 10.8 L (12.0-18.0) g/dL Hct 32.7 L (35.0-51.0) % MCV 80.2 (80.0-94.0) fl MCH 26.6 L (27.0-31.0) pg MCHC 33.1 (33.0-37.0) g/dL RDW 15.6 H (11.5-14.5) % Plt Count 258 (130-400) K/uL Sodium 144 (132-148) mmol/l Potassium 3.6 (3.6-5.0) MMOL/L Chloride 98 (98-107) mmol/L Carbon Dioxide 31 H (22-30) mmol/L Anion Gap 19 (10-20) BUN 34 H (9-20) mg/dl Creatinine 2.1 H (0.8-1.5) mg/dl Est GFR ( Amer) 37 Est GFR (Non-Af Amer) 31 POC Glucose (mg/dL) 96 (65-110) mg/dL Random Glucose 94 (75-110) mg/dL Calcium 9.2 (8.4-10.2) mg/dL Total Bilirubin (0.2-1.3) mg/dl AST (17-59) U/L ALT (21-72) U/L Alkaline Phosphatase (38-126) U/L Troponin I (0.00-0.120) ng/mL Total Protein (6.3-8.2) G/DL Albumin (3.5-5.0) g/dL Globulin (2.2-3.9) gm/dL Albumin/Globulin Ratio (1.0-2.1) 05/23/17 05/23/17 05/23/17 Range/Units 21:03 17:55 16:18 WBC (4.8-10.8) K/uL RBC (4.40-5.90) Mil/uL Hgb (12.0-18.0) g/dL Hct (35.0-51.0) % MCV (80.0-94.0) fl MCH (27.0-31.0) pg MCHC (33.0-37.0) g/dL RDW (11.5-14.5) % Plt Count (130-400) K/uL Sodium (132-148) mmol/l Potassium (3.6-5.0) MMOL/L Chloride (98-107) mmol/L Carbon Dioxide (22-30) mmol/L Anion Gap (10-20) BUN (9-20) mg/dl Creatinine (0.8-1.5) mg/dl Est GFR ( Amer) Est GFR (Non-Af Amer) POC Glucose (mg/dL) 84 161 H 53 L (65-110) mg/dL Random Glucose (75-110) mg/dL Calcium (8.4-10.2) mg/dL Total Bilirubin (0.2-1.3) mg/dl AST (17-59) U/L ALT (21-72) U/L Alkaline Phosphatase (38-126) U/L Troponin I (0.00-0.120) ng/mL Total Protein (6.3-8.2) G/DL Albumin (3.5-5.0) g/dL Globulin (2.2-3.9) gm/dL Albumin/Globulin Ratio (1.0-2.1) 05/23/17 05/23/17 05/23/17 Range/Units 13:47 11:02 09:25 WBC (4.8-10.8) K/uL RBC (4.40-5.90) Mil/uL Hgb (12.0-18.0) g/dL Hct (35.0-51.0) % MCV (80.0-94.0) fl MCH (27.0-31.0) pg MCHC (33.0-37.0) g/dL RDW (11.5-14.5) % Plt Count (130-400) K/uL Sodium 144 (132-148) mmol/l Potassium 3.9 (3.6-5.0) MMOL/L Chloride 104 (98-107) mmol/L Carbon Dioxide 29 (22-30) mmol/L Anion Gap 15 (10-20) BUN 29 H (9-20) mg/dl Creatinine 1.9 H (0.8-1.5) mg/dl Est GFR ( Amer) 41 Est GFR (Non-Af Amer) 34 POC Glucose (mg/dL) 162 H (65-110) mg/dL Random Glucose 127 H (75-110) mg/dL Calcium 9.4 (8.4-10.2) mg/dL Total Bilirubin 1.0 (0.2-1.3) mg/dl AST 30 (17-59) U/L ALT 23 (21-72) U/L Alkaline Phosphatase 97 (38-126) U/L Troponin I 0.0240 (0.00-0.120) ng/mL Total Protein 7.0 (6.3-8.2) G/DL Albumin 3.5 (3.5-5.0) g/dL Globulin 3.5 (2.2-3.9) gm/dL Albumin/Globulin Ratio 1.0 (1.0-2.1) 05/23/17 Range/Units 09:25 WBC (4.8-10.8) K/uL RBC (4.40-5.90) Mil/uL Hgb (12.0-18.0) g/dL Hct (35.0-51.0) % MCV (80.0-94.0) fl MCH (27.0-31.0) pg MCHC (33.0-37.0) g/dL RDW (11.5-14.5) % Plt Count (130-400) K/uL Sodium (132-148) mmol/l Potassium (3.6-5.0) MMOL/L Chloride (98-107) mmol/L Carbon Dioxide (22-30) mmol/L Anion Gap (10-20) BUN (9-20) mg/dl Creatinine (0.8-1.5) mg/dl Est GFR ( Amer) Est GFR (Non-Af Amer) POC Glucose (mg/dL) (65-110) mg/dL Random Glucose (75-110) mg/dL Calcium (8.4-10.2) mg/dL Total Bilirubin (0.2-1.3) mg/dl AST (17-59) U/L ALT (21-72) U/L Alkaline Phosphatase (38-126) U/L Troponin I 0.0290 (0.00-0.120) ng/mL Total Protein (6.3-8.2) G/DL Albumin (3.5-5.0) g/dL Globulin (2.2-3.9) gm/dL Albumin/Globulin Ratio (1.0-2.1) Laboratory Results - last 24 hr 05/23/17 05/23/17 05/23/17 09:25 09:25 11:02 WBC RBC Hgb Hct MCV MCH MCHC RDW Plt Count Sodium 144 Potassium 3.9 Chloride 104 Carbon Dioxide 29 Anion Gap 15 BUN 29 H Creatinine 1.9 H Est GFR ( Amer) 41 Est GFR (Non-Af Amer) 34 POC Glucose (mg/dL) 162 H Random Glucose 127 H Calcium 9.4 Total Bilirubin 1.0 AST 30 ALT 23 Alkaline Phosphatase 97 Troponin I 0.0290 Total Protein 7.0 Albumin 3.5 Globulin 3.5 Albumin/Globulin Ratio 1.0 05/23/17 05/23/17 05/23/17 13:47 16:18 17:55 WBC RBC Hgb Hct MCV MCH MCHC RDW Plt Count Sodium Potassium Chloride Carbon Dioxide Anion Gap BUN Creatinine Est GFR ( Amer) Est GFR (Non-Af Amer) POC Glucose (mg/dL) 53 L 161 H Random Glucose Calcium Total Bilirubin AST ALT Alkaline Phosphatase Troponin I 0.0240 Total Protein Albumin Globulin Albumin/Globulin Ratio 05/23/17 05/24/17 05/24/17 21:03 04:19 04:19 WBC 8.9 RBC 4.08 L Hgb 10.8 L Hct 32.7 L MCV 80.2 MCH 26.6 L MCHC 33.1 RDW 15.6 H Plt Count 258 Sodium 144 Potassium 3.6 Chloride 98 Carbon Dioxide 31 H Anion Gap 19 BUN 34 H Creatinine 2.1 H Est GFR ( Amer) 37 Est GFR (Non-Af Amer) 31 POC Glucose (mg/dL) 84 Random Glucose 94 Calcium 9.2 Total Bilirubin AST ALT Alkaline Phosphatase Troponin I Total Protein Albumin Globulin Albumin/Globulin Ratio 05/24/17 05:33 WBC RBC Hgb Hct MCV MCH MCHC RDW Plt Count Sodium Potassium Chloride Carbon Dioxide Anion Gap BUN Creatinine Est GFR ( Amer) Est GFR (Non-Af Amer) POC Glucose (mg/dL) 96 Random Glucose Calcium Total Bilirubin AST ALT Alkaline Phosphatase Troponin I Total Protein Albumin Globulin Albumin/Globulin Ratio Fingerstick Blood Sugar Results: 96 Review of Systems - Review of Systems All systems: reviewed and no additional remarkable complaints except (as above) Critical Care Progress Note - Nutrition Nutrition: Nutrition Category Date Time Status Heart Healthy Diet [DIET] Diets 05/23/17 Breakfast Active
--- NOTE | 2017-05-24 10:36 | CP.PCM.CON ---
History of Present Illness - History of Present Illness History of Present Illness: Patient is a 82 years of age, I was called to see him for consultation regarding abnormal kidney function. Patient was admitted with congestive heart failure and respiratory failure and he require to be given diuretics and treatment of CHF and it was noted that the urine creatinine rising His past medical history significant for coronary artery disease with history of congestive heart failure. Patient is not giving much history and the history was taken from the medical record. Family history not contributory Social history noncontributory Review of Systems - Constitutional Constitutional: Anorexia, Weakness. absent: Chills - EENT Eyes: As Per HPI. absent: Pain Nose/Mouth/Throat: absent: Epistaxis, Dysphagia - Cardiovascular Cardiovascular: Dyspnea on Exertion. absent: Acrocyanosis, Chest Pain at Rest, Edema, Leg Edema - Respiratory Respiratory: Dyspnea on Exertion, Chest Congestion. absent: Cough, Dyspnea, Hemoptysis - Gastrointestinal Gastrointestinal: absent: Abdominal Pain, Coffee Ground Emesis, Nausea - Genitourinary Genitourinary: Nocturia - Reproductive: Male Reproductive:Male: As Per HPI - Musculoskeletal Musculoskeletal: Muscle Weakness. absent: Arthralgias - Integumentary Integumentary: absent: Acne - Neurological Neurological: Abnormal Gait, Weakness. absent: Confusion, Dizziness, Syncope - Psychiatric Psychiatric: absent: Anxiety - Endocrine Endocrine: As Per HPI - Hematologic/Lymphatic Hematologic: absent: Easy Bleeding Past Patient History - Past Medical History & Family History Past Medical History?: Yes - Past Social History Smoking Status: Never Smoked - CARDIAC Hx Cardia Arrhythmia: Yes Hx Hypertension: Yes - PULMONARY Hx Respiratory Disorders: No - NEUROLOGICAL Hx Seizures: Yes - HEENT Hx HEENT Problems: Yes Other/Comment: hard of hearing - RENAL Hx Chronic Kidney Disease: No - ENDOCRINE/METABOLIC Hx Endocrine Disorders: Yes (DM) - HEMATOLOGICAL/ONCOLOGICAL Hx Blood Disorders: No - INTEGUMENTARY Hx Dermatological Problems: No - MUSCULOSKELETAL/RHEUMATOLOGICAL Hx Arthritis: Yes (hands) - GASTROINTESTINAL Hx Gastrointestinal Disorders: No - GENITOURINARY/GYNECOLOGICAL Hx Genitourinary Disorders: No Hx Prostate Cancer: Yes - PSYCHIATRIC Hx Psychophysiologic Disorder: No Hx Substance Use: No - SURGICAL HISTORY Hx Coronary Artery Bypass Graft: Yes Hx Coronary Stent: Yes - ANESTHESIA Hx Anesthesia: Yes Hx Anesthesia Reactions: No Hx Malignant Hyperthermia: No Meds Allergies/Adverse Reactions: Allergies Allergy/AdvReac Type Severity Reaction Status Date / Time No Known Allergies Allergy Verified 09/01/16 15:25 - Medications Medications: Current Medications Albuterol Sulfate (Albuterol 0.083% Inhal Comfort (2.5 Mg/3 Ml) Ud) 2.5 mg INH RQ6 PRN PRN Reason: Shortness of Breath Aspirin (Aspirin Chewable) 81 mg PO DAILY [facility] Last Admin: 05/24/17 09:20 Dose: 81 mg Atenolol (Tenormin) 50 mg PO DAILY [facility] Last Admin: 05/24/17 09:21 Dose: 50 mg Atorvastatin Calcium (Lipitor) 20 mg PO DAILY [facility] Last Admin: 05/24/17 09:20 Dose: 20 mg Brimonidine Tartrate (Alphagan 0.2% Opht) 1 drop OU Q12 [facility] Last Admin: 05/24/17 09:20 Dose: 1 drop Clopidogrel Bisulfate (Plavix) 75 mg PO DAILY [facility] Last Admin: 05/24/17 09:20 Dose: 75 mg Enoxaparin Sodium (Lovenox) 30 mg SC DAILY [facility] PRN Reason: Protocol Last Admin: 05/24/17 09:20 Dose: 30 mg Furosemide (Lasix) 40 mg IV DAILY [facility] Glipizide (Glucotrol) 10 mg PO DAILY [facility] Last Admin: 05/24/17 09:20 Dose: 10 mg Home Med (Melatonin [Melatonin]) 10 mg PO PRN PRN Reason: Insomnia Ceftriaxone Sodium 1 gm/ (Dextrose) 100 mls @ 100 mls/hr IVPB DAILY [facility] PRN Reason: Protocol Last Admin: 05/24/17 09:16 Dose: 100 mls/hr Insulin Human Regular (Humulin R) 0 units SC ACCU-CHECK [facility] PRN Reason: Protocol Last Admin: 05/24/17 08:14 Dose: Not Given Levetiracetam (Keppra) 500 mg PO BID [facility] Last Admin: 05/24/17 09:20 Dose: 500 mg Multivitamins/Minerals (Therapeutic-M Tab) 1 tab PO DAILY [facility] Last Admin: 05/24/17 09:21 Dose: 1 tab Nifedipine (Procardia Xl) 90 mg PO DAILY [facility] Last Admin: 05/24/17 09:20 Dose: 90 mg Timolol Maleate (Timoptic 0.5% Ophth Soln) 1 drop OU Q12 [facility] Last Admin: 05/24/17 09:20 Dose: 1 drop Physical Exam - Constitutional Appears: No Acute Distress - ENT Exam ENT Exam: Mucous Membranes Dry - Neck Exam Neck exam: Negative for: Lymphadenopathy - Respiratory Exam Respiratory Exam: Rhonchi. absent: Chest Wall Tenderness, Rales - Cardiovascular Exam Cardiovascular Exam: absent: Gallop, JVD, Rubs - GI/Abdominal Exam GI & Abdominal Exam: Normal Bowel Sounds. absent: Guarding - Extremities Exam Extremities exam: Negative for: calf tenderness, pedal edema - Back Exam Back exam: absent: CVA tenderness (L), CVA tenderness (R) - Neurological Exam Neurological exam: Altered - Psychiatric Exam Psychiatric exam: Flat Affect Results - Vital Signs Recent Vital Signs: Last Vital Signs Temp 98.1 F 05/24/17 08:00 Pulse 51 L 05/24/17 10:00 Resp 13 05/24/17 10:00 BP 126/40 L 05/24/17 10:00 Pulse Ox 100 05/24/17 10:00 - Labs Result Diagrams: 05/24/17 04:19 05/24/17 04:19 Labs: Laboratory Results - last 24 hr 05/23/17 05/23/17 05/23/17 09:25 11:02 13:47 WBC RBC Hgb Hct MCV MCH MCHC RDW Plt Count Sodium 144 Potassium 3.9 Chloride 104 Carbon Dioxide 29 Anion Gap 15 BUN 29 H Creatinine 1.9 H Est GFR ( Amer) 41 Est GFR (Non-Af Amer) 34 POC Glucose (mg/dL) 162 H Random Glucose 127 H Calcium 9.4 Total Bilirubin 1.0 AST 30 ALT 23 Alkaline Phosphatase 97 Troponin I 0.0240 Total Protein 7.0 Albumin 3.5 Globulin 3.5 Albumin/Globulin Ratio 1.0 05/23/17 05/23/17 05/23/17 16:18 17:55 21:03 WBC RBC Hgb Hct MCV MCH MCHC RDW Plt Count Sodium Potassium Chloride Carbon Dioxide Anion Gap BUN Creatinine Est GFR ( Amer) Est GFR (Non-Af Amer) POC Glucose (mg/dL) 53 L 161 H 84 Random Glucose Calcium Total Bilirubin AST ALT Alkaline Phosphatase Troponin I Total Protein Albumin Globulin Albumin/Globulin Ratio 05/24/17 05/24/17 05/24/17 04:19 04:19 05:33 WBC 8.9 RBC 4.08 L Hgb 10.8 L Hct 32.7 L MCV 80.2 MCH 26.6 L MCHC 33.1 RDW 15.6 H Plt Count 258 Sodium 144 Potassium 3.6 Chloride 98 Carbon Dioxide 31 H Anion Gap 19 BUN 34 H Creatinine 2.1 H Est GFR ( Amer) 37 Est GFR (Non-Af Amer) 31 POC Glucose (mg/dL) 96 Random Glucose 94 Calcium 9.2 Total Bilirubin AST ALT Alkaline Phosphatase Troponin I Total Protein Albumin Globulin Albumin/Globulin Ratio Assessment & Plan (1) Acute kidney injury Assessment and Plan: Patient admitted with acute congestive heart failure and respiratory failure and required to be diuresed also admitted with hyperkalemia since then hyperkalemia has been corrected. Acute kidney injury perhaps superimposed on chronic kidney disease stage III most likely related to perhaps over diuresing and volume changes. My recommendation Since no urinalysis we will get stat urinalysis and also spot urine for sodium osmolality and creatinine and protein. Serum phosphorus and PTH decrease Lasix perhaps switch to by mouth Thank you Status: Acute (2) Acute CHF Status: Acute (3) CAD (coronary artery disease) Status: Acute (4) Diabetes type 2, uncontrolled Status: Acute (5) Hyperkalemia Status: Acute (6) Pleural effusion Status: Acute
--- NOTE | 2017-05-24 10:58 | CP.PCM.PN ---
Subjective - Date & Time of Evaluation Date of Evaluation: 05/24/17 Time of Evaluation: 10:50 - Subjective Subjective: less dyspnea today. much clearer Objective - Vital Signs/Intake and Output Vital Signs (last 24 hours): Temp Pulse Resp BP Pulse Ox 98.1 F 51 L 13 126/40 L 100 05/24/17 08:00 05/24/17 10:00 05/24/17 10:00 05/24/17 10:00 05/24/17 10:00 Intake and Output: 05/24/17 05/24/17 06:59 18:59 Intake Total 50 0 Output Total 850 Balance -800 0 - Medications Medications: Current Medications Albuterol Sulfate (Albuterol 0.083% Inhal Comfort (2.5 Mg/3 Ml) Ud) 2.5 mg INH RQ6 PRN PRN Reason: Shortness of Breath Aspirin (Aspirin Chewable) 81 mg PO DAILY [facility] Last Admin: 05/24/17 09:20 Dose: 81 mg Atenolol (Tenormin) 50 mg PO DAILY [facility] Last Admin: 05/24/17 09:21 Dose: 50 mg Atorvastatin Calcium (Lipitor) 20 mg PO DAILY [facility] Last Admin: 05/24/17 09:20 Dose: 20 mg Brimonidine Tartrate (Alphagan 0.2% Opht) 1 drop OU Q12 [facility] Last Admin: 05/24/17 09:20 Dose: 1 drop Clopidogrel Bisulfate (Plavix) 75 mg PO DAILY [facility] Last Admin: 05/24/17 09:20 Dose: 75 mg Enoxaparin Sodium (Lovenox) 30 mg SC DAILY [facility] PRN Reason: Protocol Last Admin: 05/24/17 09:20 Dose: 30 mg Furosemide (Lasix) 40 mg IV DAILY [facility] Glipizide (Glucotrol) 10 mg PO DAILY [facility] Last Admin: 05/24/17 09:20 Dose: 10 mg Home Med (Melatonin [Melatonin]) 10 mg PO HS PRN PRN Reason: Insomnia Ceftriaxone Sodium 1 gm/ (Dextrose) 100 mls @ 100 mls/hr IVPB DAILY [facility] PRN Reason: Protocol Last Admin: 05/24/17 09:16 Dose: 100 mls/hr Insulin Human Regular (Humulin R) 0 units SC ACCU-CHECK [facility] PRN Reason: Protocol Last Admin: 05/24/17 08:14 Dose: Not Given Levetiracetam (Keppra) 500 mg PO BID [facility] Last Admin: 05/24/17 09:20 Dose: 500 mg Multivitamins/Minerals (Therapeutic-M Tab) 1 tab PO DAILY [facility] Last Admin: 05/24/17 09:21 Dose: 1 tab Nifedipine (Procardia Xl) 90 mg PO DAILY [facility] Last Admin: 05/24/17 09:20 Dose: 90 mg Timolol Maleate (Timoptic 0.5% Ophth Soln) 1 drop OU Q12 [facility] Last Admin: 05/24/17 09:20 Dose: 1 drop - Labs Labs: 05/24/17 04:19 05/24/17 04:19 PT 11.7 Seconds (9.8-13.1) 05/22/17 17:23 INR 1.1 (0.9-1.2) 05/22/17 17:23 APTT 37.2 Seconds (25.6-37.1) H 05/22/17 17:23 - Constitutional Appears: Non-toxic - Head Exam Head Exam: NORMAL INSPECTION - Eye Exam Eye Exam: Normal appearance - ENT Exam ENT Exam: Mucous Membranes Moist - Neck Exam Neck Exam: Full ROM - Respiratory Exam Respiratory Exam: Decreased Breath Sounds - Cardiovascular Exam Cardiovascular Exam: REGULAR RHYTHM - GI/Abdominal Exam GI & Abdominal Exam: Normal Bowel Sounds - Rectal Exam Rectal Exam: Deferred - Extremities Exam Extremities Exam: Pedal Edema - Back Exam Back Exam: NORMAL INSPECTION - Neurological Exam Neurological Exam: Alert - Psychiatric Exam Psychiatric exam: Normal Affect - Skin Skin Exam: Normal Color Assessment and Plan (1) CAD (coronary artery disease) Assessment & Plan: no current angina. recommend antiplatelet therapy Status: Acute (2) Congestive heart failure Assessment & Plan: pro BNP was mrkedly elevated. recommend echocardiogram to evaluate systolic function Status: Acute
[2017-05-24 15:50] LABS: CREATININE, RANDOM URINE 40.1 mg/dL
[2017-05-24 16:00] LABS: SQUAMOUS EPITHIAL < 1 /hpf (0-5); URINE BACTERIA RARE (<OCC); URINE BILIRUBIN NEGATIVE (NEGATIVE); URINE BLOOD NEGATIVE (NEGATIVE); URINE CLARITY CLEAR (Clear); URINE COLOR YELLOW (YELLOW); URINE GLUCOSE (UA) NEG (Normal); URINE LEUKOCYTE ESTERASE NEG Leu/uL (Negative); URINE PROTEIN 100 mg/dL (NEGATIVE); URINE UROBILINOGEN 0.2-1.0 mg/dL (0.2-1.0)
--- NOTE | 2017-05-25 07:35 | CP.PCM.PN ---
Subjective - Date & Time of Evaluation Date of Evaluation: 05/25/17 Time of Evaluation: 07:35 - Subjective Subjective: pt doing well. no complaints. nof /c, n/v/d. still 87% on ra. pt is not in distrss while off o2. bw noted. echo pending, cardio consult appriciated. Objective - Vital Signs/Intake and Output Vital Signs (last 24 hours): Temp Pulse Resp BP Pulse Ox 97.9 F 65 18 153/58 H 97 05/25/17 05:13 05/25/17 05:13 05/25/17 05:13 05/25/17 05:13 05/25/17 05:13 - Medications Medications: Current Medications Albuterol Sulfate (Albuterol 0.083% Inhal Comfort (2.5 Mg/3 Ml) Ud) 2.5 mg INH RQ6 PRN PRN Reason: Shortness of Breath Aspirin (Aspirin Chewable) 81 mg PO DAILY [facility] Last Admin: 05/24/17 09:20 Dose: 81 mg Atenolol (Tenormin) 50 mg PO DAILY [facility] Last Admin: 05/24/17 09:21 Dose: 50 mg Atorvastatin Calcium (Lipitor) 20 mg PO DAILY [facility] Last Admin: 05/24/17 09:20 Dose: 20 mg Brimonidine Tartrate (Alphagan 0.2% Opht) 1 drop OU Q12 [facility] Last Admin: 05/24/17 20:41 Dose: 1 drop Clopidogrel Bisulfate (Plavix) 75 mg PO DAILY [facility] Last Admin: 05/24/17 09:20 Dose: 75 mg Enoxaparin Sodium (Lovenox) 30 mg SC DAILY [facility] PRN Reason: Protocol Last Admin: 05/24/17 09:20 Dose: 30 mg Furosemide (Lasix) 40 mg IV DAILY [facility] Glipizide (Glucotrol) 10 mg PO DAILY [facility] Last Admin: 05/24/17 09:20 Dose: 10 mg Home Med (Melatonin [Melatonin]) 10 mg PO HS PRN PRN Reason: Insomnia Ceftriaxone Sodium 1 gm/ (Dextrose) 100 mls @ 100 mls/hr IVPB DAILY [facility] PRN Reason: Protocol Last Admin: 05/24/17 09:16 Dose: 100 mls/hr Insulin Human Regular (Humulin R) 0 units SC ACCU-CHECK [facility] PRN Reason: Protocol Last Admin: 05/24/17 23:00 Dose: Not Given Levetiracetam (Keppra) 500 mg PO BID [facility] Last Admin: 05/24/17 17:33 Dose: 500 mg Multivitamins/Minerals (Therapeutic-M Tab) 1 tab PO DAILY [facility] Last Admin: 05/24/17 09:21 Dose: 1 tab Nifedipine (Procardia Xl) 90 mg PO DAILY [facility] Last Admin: 05/24/17 09:20 Dose: 90 mg Timolol Maleate (Timoptic 0.5% Ophth Soln) 1 drop OU Q12 [facility] Last Admin: 05/24/17 20:41 Dose: 1 drop - Labs Labs: 05/24/17 04:19 05/24/17 04:19 PT 11.7 Seconds (9.8-13.1) 05/22/17 17:23 INR 1.1 (0.9-1.2) 05/22/17 17:23 APTT 37.2 Seconds (25.6-37.1) H 05/22/17 17:23 - Constitutional Appears: Well, Non-toxic, No Acute Distress - Head Exam Head Exam: ATRAUMATIC, NORMAL INSPECTION, NORMOCEPHALIC - Eye Exam Eye Exam: EOMI, Normal appearance, PERRL Pupil Exam: NORMAL ACCOMODATION, PERRL - ENT Exam ENT Exam: Mucous Membranes Moist, Normal Exam - Neck Exam Neck Exam: Full ROM, Normal Inspection. absent: Lymphadenopathy - Respiratory Exam Respiratory Exam: Clear to Ausculation Bilateral, NORMAL BREATHING PATTERN - Cardiovascular Exam Cardiovascular Exam: REGULAR RHYTHM, RRR, +S1, +S2. absent: Murmur - GI/Abdominal Exam GI & Abdominal Exam: Soft, Normal Bowel Sounds. absent: Tenderness - Extremities Exam Extremities Exam: Full ROM, Normal Capillary Refill, Normal Inspection. absent : Joint Swelling, Pedal Edema - Back Exam Back Exam: NORMAL INSPECTION - Neurological Exam Neurological Exam: Alert, Awake, CN II-XII Intact, Normal Gait, Oriented x3 - Psychiatric Exam Psychiatric exam: Normal Affect, Normal Mood - Skin Skin Exam: Dry, Intact, Normal Color, Warm Assessment and Plan (1) Diabetes type 2, uncontrolled Status: Acute (2) Acute CHF Status: Acute (3) Hyperkalemia Status: Acute (4) DVT prophylaxis Status: Acute (5) CAD (coronary artery disease) Status: Acute - Assessment and Plan (Free Text) Assessment: (1) Diabetes type 2, uncontrolled Assessment and Plan: cont home meds fsbg diet control Status: Acute (2) Acute CHF Assessment and Plan: cardio icu lasix asa/plavix echo Status: Acute (3) Hyperkalemia Assessment and Plan: given calcium gluconate, kayexalte, insulin and dextrose given in ER monitor Status: Acute (4) DVT prophylaxis Assessment and Plan: scd nad aehose lovenox Status: Acute (5) CAD (coronary artery disease) Assessment and Plan: asa/plavix cardio Status: Acute [id number] eval for home o2. pt/ot eval dispo pending -[facility] vs home w/ services
[2017-05-25] MEDS: Enoxaparin 30 mg Syringe SC SCH ×2 (08:48→08:55)
[2017-05-25] MEDS: Brimonidine 0.2% 50 DROP/5 ML BOTTLE OU SCH ×2 (08:48→22:00)
[2017-05-25] MEDS: Multivitamin With Minerals Tab PO SCH (08:49)
[2017-05-25] MEDS: NIFEdipine 90 mg ER Tab PO SCH (08:49)
[2017-05-25] MEDS: Insulin Regular 100 units/ml SC SCH ×4 (08:50→22:00)
[2017-05-25 09:25] LABS: BASO # 0.1 K/uL (0.0-0.2); BASO % 1.1 % (0.0-2.0); EOS # 0.6 K/uL (0.0-0.7); EOS % 6.6 % (0.0-4.0); HEMOGLOBIN 11.3 g/dL (12.0-18.0); LYMPH # 1.4 K/uL (1.0-4.3); LYMPH % 14.8 % (20.0-40.0); MEAN CELL VOLUME 81.2 fl (80.0-94.0); MEAN CORPUSCULAR HEMOGLOBIN 26.3 pg (27.0-31.0); MEAN CORPUSCULAR HGB CONC 32.4 g/dL (33.0-37.0); MEAN PLATELET VOLUME 8.4 fl (7.2-11.7); MONO # 0.9 K/uL (0.0-0.8); MONO % 9.3 % (0.0-10.0); NEUT # 6.5 K/uL (1.8-7.0); NEUT % 68.2 % (50.0-75.0); NRBC % 0.1 % (0.0-0.0); RBC 4.28 Mil/uL (4.40-5.90); RED CELL DISTRIBUTION WIDTH 15.5 % (11.5-14.5); WHITE BLOOD COUNT 9.5 K/uL (4.8-10.8)
[2017-05-25 09:36] LABS: ALBUMIN 3.7 g/dL (3.5-5.0); CALCIUM 9.2 mg/dL (8.4-10.2)
--- NOTE | 2017-05-25 10:12 | CP.PCM.PN ---
Subjective - Date & Time of Evaluation Date of Evaluation: 05/25/17 Time of Evaluation: 10:00 - Subjective Subjective: patient denies chest pain. no dyspnea Objective - Vital Signs/Intake and Output Vital Signs (last 24 hours): Temp Pulse Resp BP Pulse Ox 98.3 F 57 L 18 166/64 H 98 05/25/17 07:59 05/25/17 07:59 05/25/17 07:59 05/25/17 08:49 05/25/17 07:59 - Medications Medications: Current Medications Albuterol Sulfate (Albuterol 0.083% Inhal Comfort (2.5 Mg/3 Ml) Ud) 2.5 mg INH RQ6 PRN PRN Reason: Shortness of Breath Aspirin (Aspirin Chewable) 81 mg PO DAILY [facility] Last Admin: 05/25/17 08:49 Dose: 81 mg Atenolol (Tenormin) 50 mg PO DAILY [facility] Last Admin: 05/24/17 09:21 Dose: 50 mg Atorvastatin Calcium (Lipitor) 20 mg PO DAILY [facility] Last Admin: 05/25/17 08:48 Dose: 20 mg Brimonidine Tartrate (Alphagan 0.2% Opht) 1 drop OU Q12 [facility] Last Admin: 05/25/17 08:48 Dose: 1 drop Clopidogrel Bisulfate (Plavix) 75 mg PO DAILY [facility] Last Admin: 05/25/17 08:48 Dose: 75 mg Enoxaparin Sodium (Lovenox) 30 mg SC DAILY [facility] PRN Reason: Protocol Last Admin: 05/25/17 08:55 Dose: Not Given Furosemide (Lasix) 40 mg IV DAILY [facility] Last Admin: 05/25/17 08:49 Dose: 40 mg Glipizide (Glucotrol) 10 mg PO DAILY [facility] Last Admin: 05/25/17 08:49 Dose: 10 mg Home Med (Melatonin [Melatonin]) 10 mg PO HS PRN PRN Reason: Insomnia Ceftriaxone Sodium 1 gm/ (Dextrose) 100 mls @ 100 mls/hr IVPB DAILY [facility] PRN Reason: Protocol Last Admin: 05/24/17 09:16 Dose: 100 mls/hr Insulin Human Regular (Humulin R) 0 units SC ACCU-CHECK [facility] PRN Reason: Protocol Last Admin: 05/25/17 08:50 Dose: Not Given Levetiracetam (Keppra) 500 mg PO BID [facility] Last Admin: 05/25/17 08:48 Dose: 500 mg Multivitamins/Minerals (Therapeutic-M Tab) 1 tab PO DAILY [facility] Last Admin: 05/25/17 08:49 Dose: 1 tab Nifedipine (Procardia Xl) 90 mg PO DAILY [facility] Last Admin: 05/25/17 08:49 Dose: 90 mg Timolol Maleate (Timoptic 0.5% Ophth Soln) 1 drop OU Q12 [facility] Last Admin: 05/25/17 08:50 Dose: 1 drop - Labs Labs: 05/25/17 08:30 05/25/17 08:30 PT 11.7 Seconds (9.8-13.1) 05/22/17 17:23 INR 1.1 (0.9-1.2) 05/22/17 17:23 APTT 37.2 Seconds (25.6-37.1) H 05/22/17 17:23 - Constitutional Appears: Non-toxic - Head Exam Head Exam: NORMAL INSPECTION - Eye Exam Eye Exam: Normal appearance - ENT Exam ENT Exam: Mucous Membranes Moist - Neck Exam Neck Exam: Full ROM - Respiratory Exam Respiratory Exam: NORMAL BREATHING PATTERN - Cardiovascular Exam Cardiovascular Exam: REGULAR RHYTHM - GI/Abdominal Exam GI & Abdominal Exam: Normal Bowel Sounds - Rectal Exam Rectal Exam: Deferred - Extremities Exam Extremities Exam: Pedal Edema - Back Exam Back Exam: NORMAL INSPECTION - Neurological Exam Neurological Exam: Alert - Psychiatric Exam Psychiatric exam: Normal Affect - Skin Skin Exam: Normal Color Assessment and Plan (1) Acute CHF Assessment & Plan: improved. I reviewed the echocardiogram. Mild to moderate LV dsyfunction with moderate MR. The patient is euvolemic. 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
--- NOTE | 2017-05-25 12:37 | CARD ---
APPROVED REPORT EXAM: Two-dimensional and M-mode echocardiogram with Doppler and color Doppler. Other Information Quality : GoodRhythm : NSR INDICATION Congestive Heart Failure 2D DIMENSIONS IVSd0.98 (0.7-1.1cm)LVDd4.43 (3.9-5.9cm) LVOT Diameter2.03 (1.8-2.4cm)PWd1.38 (0.7-1.1cm) IVSs1.30 (0.8-1.2cm)LVDs4.04 (2.5-4.0cm) FS (%) 8.8 %PWs1.08 (0.8-1.2cm) M-Mode DIMENSIONS Left Atrium (MM)4.50 (2.5-4.0cm)IVSd1.03 (0.7-1.1cm) Aortic Root3.06 (2.2-3.7cm)LVDd5.74 (4.0-5.6cm) Aortic Cusp Exc.2.09 (1.5-2.0cm)PWd1.03 (0.7-1.1cm) IVSs1.29 cmFS (%) 27 % LVDs4.21 (2.0-3.8cm)PWs1.35 cm Mitral Valve MV E Uqnoxpid07.1cm/sMV DECEL [id number] A Ucmobjyy39.4cm/s MV FVP87utC/A ratio1.0MVA (PHT)4.16cm2 TDI Lateral E' Peak V9.04cm/sMedial E' Peak V4.16cm/sE/Lateral E'10.3 E/Medial E'22.4 Pulmonary Valve PV Peak Ggknumqy697.6cm/s Tricuspid Valve TR Peak Ybwvllpv774vt/sRAP [id number] Peak Gr.37mmHg [id number] LEFT VENTRICLE The left ventricle is normal size. There is normal left ventricular wall thickness. Left ventricle systolic function is mildly impaired. The Ejection Fraction is 45-50%. Mild generalised hypokinesia Transmitral Doppler flow pattern is Grade I-abnormal relaxation pattern. RIGHT VENTRICLE The right ventricle is normal size. There is normal right ventricular wall thickness. The right ventricular systolic function is normal. ATRIA The left atrium is mildly dilated. The right atrium size is normal. AORTIC VALVE The aortic valve is normal in structure. No aortic regurgitation is present. There is no aortic valvular stenosis. MITRAL VALVE The mitral valve is normal in structure. There is no evidence of mitral valve prolapse. There is no mitral valve stenosis. Mitral regurgitation is mild. TRICUSPID VALVE The tricuspid valve is normal in structure. There is mild tricuspid regurgitation. Right ventricular systolic pressure is estimated at 48 mmHg. There is mild-moderate pulmonary hypertension. PULMONIC VALVE The pulmonary valve is normal in structure. There is no pulmonic valvular regurgitation. GREAT VESSELS The aortic root is normal in size. The IVC is normal in size and collapses >50% with inspiration. PERICARDIAL EFFUSION The pericardium appears normal. <Conclusion> The left ventricle is normal size. Mild generalised hypokinesia Left ventricle systolic function is mildly impaired. The Ejection Fraction is 45-50%. Transmitral Doppler flow pattern is Grade I-abnormal relaxation pattern.
--- NOTE | 2017-05-25 12:58 | CP.PCM.PN ---
Subjective - Date & Time of Evaluation Date of Evaluation: 05/25/17 Time of Evaluation: 12:56 - Subjective Subjective: Patient is walking around however he is confused to place and sherry He is on one to one observation No nausea no vomiting Does not appear any distress No chest pain Objective - Vital Signs/Intake and Output Vital Signs (last 24 hours): Temp Pulse Resp BP Pulse Ox 97.2 F L 65 18 155/70 H 95 05/25/17 12:00 05/25/17 12:37 05/25/17 12:00 05/25/17 12:37 05/25/17 12:00 - Medications Medications: Current Medications Albuterol Sulfate (Albuterol 0.083% Inhal Comfort (2.5 Mg/3 Ml) Ud) 2.5 mg INH RQ6 PRN PRN Reason: Shortness of Breath Aspirin (Aspirin Chewable) 81 mg PO DAILY [facility] Last Admin: 05/25/17 08:49 Dose: 81 mg Atenolol (Tenormin) 50 mg PO DAILY [facility] Last Admin: 05/25/17 12:37 Dose: 50 mg Atorvastatin Calcium (Lipitor) 20 mg PO DAILY [facility] Last Admin: 05/25/17 08:48 Dose: 20 mg Brimonidine Tartrate (Alphagan 0.2% Opht) 1 drop OU Q12 [facility] Last Admin: 05/25/17 08:48 Dose: 1 drop Clopidogrel Bisulfate (Plavix) 75 mg PO DAILY [facility] Last Admin: 05/25/17 08:48 Dose: 75 mg Enoxaparin Sodium (Lovenox) 30 mg SC DAILY [facility] PRN Reason: Protocol Last Admin: 05/25/17 08:55 Dose: Not Given Furosemide (Lasix) 40 mg IV DAILY [facility] Last Admin: 05/25/17 08:49 Dose: 40 mg Glipizide (Glucotrol) 10 mg PO DAILY [facility] Last Admin: 05/25/17 08:49 Dose: 10 mg Home Med (Melatonin [Melatonin]) 10 mg PO HS PRN PRN Reason: Insomnia Ceftriaxone Sodium 1 gm/ (Dextrose) 100 mls @ 100 mls/hr IVPB DAILY [facility] PRN Reason: Protocol Last Admin: 05/25/17 12:14 Dose: 100 mls/hr Insulin Human Regular (Humulin R) 0 units SC ACCU-CHECK [facility] PRN Reason: Protocol Last Admin: 05/25/17 12:36 Dose: 2 unit Levetiracetam (Keppra) 500 mg PO BID [facility] Last Admin: 05/25/17 08:48 Dose: 500 mg Multivitamins/Minerals (Therapeutic-M Tab) 1 tab PO DAILY [facility] Last Admin: 05/25/17 08:49 Dose: 1 tab Nifedipine (Procardia Xl) 90 mg PO DAILY [facility] Last Admin: 05/25/17 08:49 Dose: 90 mg Timolol Maleate (Timoptic 0.5% Oph Soln) 1 drop OU Q12 [facility] Last Admin: 05/25/17 08:50 Dose: 1 drop - Labs Labs: 05/25/17 08:30 05/25/17 08:30 PT 11.7 Seconds (9.8-13.1) 05/22/17 17:23 INR 1.1 (0.9-1.2) 05/22/17 17:23 APTT 37.2 Seconds (25.6-37.1) H 05/22/17 17:23 - Constitutional Appears: No Acute Distress - ENT Exam ENT Exam: Mucous Membranes Moist - Neck Exam Neck Exam: absent: Lymphadenopathy - Respiratory Exam Respiratory Exam: NORMAL BREATHING PATTERN. absent: Chest Wall Tenderness, Rales - GI/Abdominal Exam GI & Abdominal Exam: Soft, Normal Bowel Sounds. absent: Guarding - Extremities Exam Extremities Exam: absent: Calf Tenderness - Back Exam Back Exam: absent: CVA tenderness (L), CVA tenderness (R) - Neurological Exam Neurological Exam: Altered - Psychiatric Exam Psychiatric exam: Agitated, Anxious - Skin Skin Exam: absent: Cyanosis Assessment and Plan (1) Acute kidney injury Assessment & Plan: Kidney function continued to improve probably acute kidney injury superimposed on CK D stage III? My suggestion to switch intravenous Lasix to by mouth patient perhaps need less diuresis now. Patient has mild proteinuria Serum phosphorus slightly elevated at 4.7 continue to monitor. PTH pending Status: Acute (2) Acute CHF Status: Acute (3) CAD (coronary artery disease) Status: Acute (4) Diabetes type 2, uncontrolled Status: Acute (5) Hyperkalemia Status: Acute (6) Pleural effusion Status: Acute
--- NOTE | 2017-05-25 13:03 | CP.PCM.CON ---
History of Present Illness - History of Present Illness History of Present Illness: Psychiatry consult called for confusion CC: "I'm okay, I feel fine." HPI: 82 yo male admitted w/ CHF, respiratory failure, pleural effusion, YAMILETH and hyperkalemia, also had altered mental status/confusion, which is now improving, as confirmed by patient's son who states that he is approaching his cognitive baseline. Patient likely has chronic dementia, but is not receiving any treatment for dementia at this time. 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 He was calm, cooperative w/o any behavioral disturbance. No acute depression/anxiety/hallucinations/SI/HI. PMHx: CHF, CAD, DM, HTN, Seizure d/o PPHx: No past psychiatric history (confirmed by patient's son) ALL: NKDA SHx: , lives w/ son, retired. MSE: A + O x 1, calm, cooperative, no acute distress, speech- normal, thought process-coherent, mood/affect- neutral, denies AH/VH/paranoia/delusions, SI/HI, I/J limited by dementia Impression: 82 yo male admitted w/ CHF, respiratory failure, pleural effusion, YAMILETH and hyperkalemia, also had altered mental status/confusion, which is now improving w/ treatment of acute medical issues. Patient likely has chronic neurocognitive deficits. -No acute inpatient psychiatric admission or medications indicated at this time -No 1:1 indicated for psychiatric reasons -If patient has periods of agitation can give Haldol 0.5 mg PO or IM Q6 hrs Past Patient History - Past Medical History & Family History Past Medical History?: Yes - Past Social History Smoking Status: Never Smoked - CARDIAC Hx Cardiac Disorders: Yes Hx Congestive Heart Failure: Yes Hx Hypertension: Yes - PULMONARY Hx Respiratory Disorders: No - NEUROLOGICAL Hx Seizures: Yes - HEENT Hx HEENT Problems: Yes Other/Comment: hard of hearing - RENAL Hx Chronic Kidney Disease: No - ENDOCRINE/METABOLIC Hx Diabetes Mellitus Type 2: Yes - HEMATOLOGICAL/ONCOLOGICAL Hx Blood Disorders: No - INTEGUMENTARY Hx Dermatological Problems: No - MUSCULOSKELETAL/RHEUMATOLOGICAL Hx Arthritis: Yes - GASTROINTESTINAL Hx Gastrointestinal Disorders: No - GENITOURINARY/GYNECOLOGICAL Hx Genitourinary Disorders: No Hx Prostate Cancer: Yes - PSYCHIATRIC Hx Psychophysiologic Disorder: No Hx Substance Use: No - SURGICAL HISTORY Hx Coronary Artery Bypass Graft: Yes Hx Coronary Stent: Yes - ANESTHESIA Hx Anesthesia: Yes Hx Anesthesia Reactions: No Hx Malignant Hyperthermia: No Meds Home Medications: Home Medication List Medication Instructions Recorded Confirmed Type Albuterol 0.083% [Albuterol 0.083% 2.5 mg INH RQ6 PRN neb 05/25/17 Rx Inhal Comfort (2.5 mg/3 ml) UD] Atorvastatin [Lipitor] 20 mg PO DAILY tab 05/25/17 Rx Enoxaparin [Lovenox] 30 mg SC DAILY syr 05/25/17 Rx Furosemide [Lasix] 40 mg IV DAILY vial 05/25/17 Rx Insulin Human Regular [HumuLIN R] 0 units SC ACCU-CHECK ml 05/25/17 Rx Timolol 0.5% Ophth [Timoptic 0.5% 1 drop OU Q12 bottle 05/25/17 Rx Ophth Soln] cefTRIAXone 1 gm [Rocephin 1 gram 1 gm IVPB DAILY #7 bag 05/25/17 Rx IVPB] Allergies/Adverse Reactions: Allergies Allergy/AdvReac Type Severity Reaction Status Date / Time No Known Allergies Allergy Verified 09/01/16 15:25 - Medications Medications: Current Medications Albuterol Sulfate (Albuterol 0.083% Inhal Comfort (2.5 Mg/3 Ml) Ud) 2.5 mg INH RQ6 PRN PRN Reason: Shortness of Breath Aspirin (Aspirin Chewable) 81 mg PO DAILY [facility] Last Admin: 05/25/17 08:49 Dose: 81 mg Atenolol (Tenormin) 50 mg PO DAILY [facility] Last Admin: 05/25/17 12:37 Dose: 50 mg Atorvastatin Calcium (Lipitor) 20 mg PO DAILY [facility] Last Admin: 05/25/17 08:48 Dose: 20 mg Brimonidine Tartrate (Alphagan 0.2% Opht) 1 drop OU Q12 [facility] Last Admin: 05/25/17 08:48 Dose: 1 drop Clopidogrel Bisulfate (Plavix) 75 mg PO DAILY [facility] Last Admin: 05/25/17 08:48 Dose: 75 mg Enoxaparin Sodium (Lovenox) 30 mg SC DAILY [facility] PRN Reason: Protocol Last Admin: 05/25/17 08:55 Dose: Not Given Furosemide (Lasix) 40 mg IV DAILY [facility] Last Admin: 05/25/17 08:49 Dose: 40 mg Glipizide (Glucotrol) 10 mg PO DAILY [facility] Last Admin: 05/25/17 08:49 Dose: 10 mg Home Med (Melatonin [Melatonin]) 10 mg PO PRN PRN Reason: Insomnia Ceftriaxone Sodium 1 gm/ (Dextrose) 100 mls @ 100 mls/hr IVPB DAILY [facility] PRN Reason: Protocol Last Admin: 05/25/17 12:14 Dose: 100 mls/hr Insulin Human Regular (Humulin R) 0 units SC ACCU-CHECK [facility] PRN Reason: Protocol Last Admin: 05/25/17 12:36 Dose: 2 unit Levetiracetam (Keppra) 500 mg PO BID [facility] Last Admin: 05/25/17 08:48 Dose: 500 mg Multivitamins/Minerals (Therapeutic-M Tab) 1 tab PO DAILY [facility] Last Admin: 05/25/17 08:49 Dose: 1 tab Nifedipine (Procardia Xl) 90 mg PO DAILY [facility] Last Admin: 05/25/17 08:49 Dose: 90 mg Timolol Maleate (Timoptic 0.5% [facility]) 1 drop OU Q12 [facility] Last Admin: 05/25/17 08:50 Dose: 1 drop Results - Vital Signs Recent Vital Signs: Last Vital Signs Temp 97.2 F L 05/25/17 12:00 Pulse 65 05/25/17 12:37 Resp 18 05/25/17 12:00 BP 155/70 H 05/25/17 12:37 Pulse Ox 95 05/25/17 12:00 - Labs Result Diagrams: 05/25/17 08:30 05/25/17 08:30 Labs: Laboratory Results - last 24 hr 05/24/17 05/24/17 05/24/17 15:16 15:16 17:10 WBC RBC Hgb Hct MCV MCH MCHC RDW Plt Count MPV Neut % (Auto) Lymph % (Auto) Tillman % (Auto) Eos % (Auto) Baso % (Auto) Neut # (Auto) Lymph # (Auto) Tillman # (Auto) Eos # (Auto) Baso # (Auto) Sodium Potassium Chloride Carbon Dioxide Anion Gap BUN Creatinine Est GFR ( Amer) Est GFR (Non-Af Amer) POC Glucose (mg/dL) 176 H Random Glucose Calcium Total Bilirubin AST ALT Alkaline Phosphatase Total Protein Albumin Globulin Albumin/Globulin Ratio Urine Color Yellow Urine Clarity Clear Urine pH 5.0 Ur Specific [place] 1.009 Urine Protein 100 Urine Glucose (UA) Neg Urine Ketones Negative Urine Blood Negative Urine Nitrate Negative Urine Bilirubin Negative Urine Urobilinogen 0.2-1.0 Ur Leukocyte Esterase Neg Urine RBC (Auto) 1 Urine Microscopic WBC < 1 Ur Squamous Epith Cells < 1 Urine Bacteria Rare Hyaline Casts 3-5 H Ur Random Creatinine 40.1 U Random Total Protein 95.0 H 05/24/17 05/25/17 05/25/17 21:34 05:18 08:30 WBC 9.5 RBC 4.28 L Hgb 11.3 L Hct 34.8 L MCV 81.2 MCH 26.3 L MCHC 32.4 L RDW 15.5 H Plt Count 312 MPV 8.4 Neut % (Auto) 68.2 Lymph % (Auto) 14.8 L Tillman % (Auto) 9.3 Eos % (Auto) 6.6 H Baso % (Auto) 1.1 Neut # (Auto) 6.5 Lymph # (Auto) 1.4 Tillman # (Auto) 0.9 H Eos # (Auto) 0.6 Baso # (Auto) 0.1 Sodium Potassium Chloride Carbon Dioxide Anion Gap BUN Creatinine Est GFR ( Amer) Est GFR (Non-Af Amer) POC Glucose (mg/dL) 185 H 97 Random Glucose Calcium Total Bilirubin AST ALT Alkaline Phosphatase Total Protein Albumin Globulin Albumin/Globulin Ratio Urine Color Urine Clarity Urine pH Ur Specific [place] Urine Protein Urine Glucose (UA) Urine Ketones Urine Blood Urine Nitrate Urine Bilirubin Urine Urobilinogen Ur Leukocyte Esterase Urine RBC (Auto) Urine Microscopic WBC Ur Squamous Epith Cells Urine Bacteria Hyaline Casts Ur Random Creatinine U Random Total Protein 05/25/17 05/25/17 08:30 11:06 WBC RBC Hgb Hct MCV MCH MCHC RDW Plt Count MPV Neut % (Auto) Lymph % (Auto) Tillman % (Auto) Eos % (Auto) Baso % (Auto) Neut # (Auto) Lymph # (Auto) Tillman # (Auto) Eos # (Auto) Baso # (Auto) Sodium 142 Potassium 3.4 L Chloride 100 Carbon Dioxide 28 Anion Gap 17 BUN 32 H Creatinine 1.7 H Est GFR ( Amer) 47 Est GFR (Non-Af Amer) 39 POC Glucose (mg/dL) 228 H Random Glucose 125 H Calcium 9.2 Total Bilirubin 0.7 AST 33 ALT 39 Alkaline Phosphatase 104 Total Protein 7.3 Albumin 3.7 Globulin 3.6 Albumin/Globulin Ratio 1.0 Urine Color Urine Clarity Urine pH Ur Specific [place] Urine Protein Urine Glucose (UA) Urine Ketones Urine Blood Urine Nitrate Urine Bilirubin Urine Urobilinogen Ur Leukocyte Esterase Urine RBC (Auto) Urine Microscopic WBC Ur Squamous Epith Cells Urine Bacteria Hyaline Casts Ur Random Creatinine U Random Total Protein
[2017-05-26] MEDS: Insulin Regular 100 units/ml SC SCH ×4 (06:50→22:28)
[2017-05-26 08:06] LABS: BASO # 0.1 K/uL (0.0-0.2); BASO % 1.1 % (0.0-2.0); EOS # 0.7 K/uL (0.0-0.7); EOS % 7.2 % (0.0-4.0); HEMOGLOBIN 11.9 g/dL (12.0-18.0); LYMPH # 1.7 K/uL (1.0-4.3); MEAN CELL VOLUME 80.9 fl (80.0-94.0); MEAN CORPUSCULAR HEMOGLOBIN 26.9 pg (27.0-31.0); MEAN CORPUSCULAR HGB CONC 33.3 g/dL (33.0-37.0); MEAN PLATELET VOLUME 8.7 fl (7.2-11.7); MONO % 9.7 % (0.0-10.0); NEUT # 6.5 K/uL (1.8-7.0); NRBC % 0.3 % (0.0-0.0); RBC 4.41 Mil/uL (4.40-5.90); RED CELL DISTRIBUTION WIDTH 15.5 % (11.5-14.5)
[2017-05-26 08:24] LABS: ALBUMIN 4.1 g/dL (3.5-5.0); CALCIUM 9.6 mg/dL (8.4-10.2)
[2017-05-26] MEDS: Multivitamin With Minerals Tab PO SCH (09:05)
[2017-05-26] MEDS: Enoxaparin 30 mg Syringe SC SCH (09:06)
[2017-05-26] MEDS: NIFEdipine 90 mg ER Tab PO SCH (09:08)
[2017-05-26] MEDS: Brimonidine 0.2% 50 DROP/5 ML BOTTLE OU SCH ×2 (09:08→23:24)
[2017-05-26] MEDS ORDERED: Potassium Chloride 20 mEq ER Tab PO ONE ×2 (10:00→17:25)
--- NOTE | 2017-05-26 10:06 | CP.PCM.PN ---
Subjective - Date & Time of Evaluation Date of Evaluation: 05/26/17 Time of Evaluation: 10:02 - Subjective Subjective: doing well. nof/c, n/v/d. on 1:1 for roaming the halls. no distress/non aggressive. Objective - Vital Signs/Intake and Output Vital Signs (last 24 hours): Temp Pulse Resp BP Pulse Ox 97.5 F L 76 18 161/60 H 96 05/26/17 08:02 05/26/17 09:08 05/26/17 08:02 05/26/17 09:08 05/26/17 08:02 - Medications Medications: Current Medications Albuterol Sulfate (Albuterol 0.083% Inhal Comfort (2.5 Mg/3 Ml) Ud) 2.5 mg INH RQ6 PRN PRN Reason: Shortness of Breath Aspirin (Aspirin Chewable) 81 mg PO DAILY [facility] Last Admin: 05/26/17 09:05 Dose: 81 mg Atenolol (Tenormin) 50 mg PO DAILY [facility] Last Admin: 05/26/17 09:08 Dose: 50 mg Atorvastatin Calcium (Lipitor) 20 mg PO DAILY [facility] Last Admin: 05/26/17 09:05 Dose: 20 mg Brimonidine Tartrate (Alphagan 0.2% Opht) 1 drop OU Q12 [facility] Last Admin: 05/26/17 09:08 Dose: 1 drop Clopidogrel Bisulfate (Plavix) 75 mg PO DAILY [facility] Last Admin: 05/26/17 09:05 Dose: 75 mg Enoxaparin Sodium (Lovenox) 30 mg SC DAILY [facility] PRN Reason: Protocol Last Admin: 05/26/17 09:06 Dose: 30 mg Furosemide (Lasix) 40 mg IV DAILY [facility] Last Admin: 05/26/17 09:05 Dose: 40 mg Glipizide (Glucotrol) 10 mg PO DAILY [facility] Last Admin: 05/26/17 09:07 Dose: 10 mg Home Med (Melatonin [Melatonin]) 10 mg PO HS PRN PRN Reason: Insomnia Ceftriaxone Sodium 1 gm/ (Dextrose) 100 mls @ 100 mls/hr IVPB DAILY [facility] PRN Reason: Protocol Last Admin: 05/26/17 09:07 Dose: 100 mls/hr Insulin Human Regular (Humulin R) 0 units SC ACCU-CHECK [facility] PRN Reason: Protocol Last Admin: 05/26/17 06:50 Dose: Not Given Levetiracetam (Keppra) 500 mg PO BID [facility] Last Admin: 05/26/17 09:05 Dose: 500 mg Multivitamins/Minerals (Therapeutic-M Tab) 1 tab PO DAILY [facility] Last Admin: 05/26/17 09:05 Dose: 1 tab Nifedipine (Procardia Xl) 90 mg PO DAILY [facility] Last Admin: 05/26/17 09:08 Dose: 90 mg Timolol Maleate (Timoptic 0.5% Ophth Soln) 1 drop OU Q12 [facility] Last Admin: 05/26/17 09:06 Dose: 1 drop - Labs Labs: 05/26/17 06:28 05/26/17 06:28 PT 11.7 Seconds (9.8-13.1) 05/22/17 17:23 INR 1.1 (0.9-1.2) 05/22/17 17:23 APTT 37.2 Seconds (25.6-37.1) H 05/22/17 17:23 - Constitutional Appears: Well, Non-toxic, No Acute Distress - Head Exam Head Exam: ATRAUMATIC, NORMAL INSPECTION, NORMOCEPHALIC - Eye Exam Eye Exam: EOMI, Normal appearance, PERRL Pupil Exam: NORMAL ACCOMODATION, PERRL - ENT Exam ENT Exam: Mucous Membranes Moist, Normal Exam - Neck Exam Neck Exam: Full ROM, Normal Inspection. absent: Lymphadenopathy - Respiratory Exam Respiratory Exam: Clear to Ausculation Bilateral, NORMAL BREATHING PATTERN - Cardiovascular Exam Cardiovascular Exam: REGULAR RHYTHM, RRR, +S1, +S2. absent: Murmur - GI/Abdominal Exam GI & Abdominal Exam: Soft, Normal Bowel Sounds. absent: Tenderness - Extremities Exam Extremities Exam: Full ROM, Normal Capillary Refill, Normal Inspection. absent : Joint Swelling, Pedal Edema - Back Exam Back Exam: NORMAL INSPECTION - Neurological Exam Neurological Exam: Alert, Awake, CN II-XII Intact, Normal Gait, Oriented x3 - Psychiatric Exam Psychiatric exam: Normal Affect, Normal Mood - Skin Skin Exam: Dry, Intact, Normal Color, Warm Assessment and Plan (1) Diabetes type 2, uncontrolled Status: Acute (2) Acute CHF Status: Acute (3) Hyperkalemia Status: Acute (4) DVT prophylaxis Status: Acute (5) CAD (coronary artery disease) Status: Acute - Assessment and Plan (Free Text) Assessment: (1) Diabetes type 2, uncontrolled Assessment and Plan: cont home meds fsbg diet control Status: Acute (2) Acute CHF Assessment and Plan: cardio icu lasix asa/plavix echo Status: Acute (3) Hyperkalemia Assessment and Plan: now 3.3 kdur 10meq given Status: Acute (4) DVT prophylaxis Assessment and Plan: scd nad aehose lovenox Status: Acute (5) CAD (coronary artery disease) Assessment and Plan: asa/plavix cardio Status: Acute [id number] eval for home o2. pt/ot eval dispo pending -[facility] vs home w/ services son-hillary wishing to take pt home. spent approx 15-20 min on phone w/ pt. spo2 on ra 96-97%. pt walking halls w/o dyspnea/distress
[2017-05-26] MEDS ORDERED: Potassium Chloride 10 mEq ER Tab PO ONE (10:30)
--- NOTE | 2017-05-26 17:29 | CP.PCM.PN ---
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 Hypertension control with meds as ordered. Patient not on ACEI/ARB due to recent YAMILETH. We will consider once renal function stable Monitor Input/Output, daily weights and renal function with basic metabolic panel Check renal and bladder sonogram Dose of potassium 20 meq today CHF management as per cardiology Consider to change to by mouth Lasix if creatinine continues to rise Dose meds/antibiotics for reduced GFR. Avoid fleets enema/magnesium based laxatives. Avoid nephrotoxins/NSAIDs/ iodinated contrast (unless needed emergently) Glycemic control Further work up for as per primary team Thanks for allowing me to participate in care of your patient. Will follow patient with you. Please call if any Qs. Discussed with son bedside Dr James Chairez Office: [phone] Subjective: Noted events overnight. Patients feels okay. Denies chest pain, palpitation, shortness of breath, Improved leg swelling. All other negative. Reports some hesitancy when making urine Physical Examination: General Appearance: Comfortable, in no acute respiratory distress, co-operative . Vitals reviewed and noted as below Head; Atraumatic, normocephalic ENT: no ulcers no thrush. Tongue is midline. Oropharynx: no rash or ulcers. EYES: Pupils are equal, round and reactive to light accommodation. Eye muscles and extraocular movement intact. Sclera is anicteric. Neck; supple no lymphadenopathy, no thyromegaly or bruit Lungs: Normal respiratory rate/effort. Breath sounds bilateral equal and clear Heart: Normal rate. s1s2 normal. No rub or gallop. Extremities: no edema. No varicose veins Neurological: Patient is alert, awake and oriented to person, place and time. No focal deficit. Strength bilateral appropriate and equal Skin: Warm and dry. Normal turgor. No rash. Palpitation: Normal elasticity for age Abdomen: Abdomen is soft. Bowel sounds +. There is no abdominal tenderness, no guarding/rigidity no organomegaly Psych: Limited insight and normal affect/mood MSK: no joint tenderness or swelling. Digits and nails normal, no deformity : kidney or bladder not palpable Labs/imaging reviewed. Past medical history, past surgical history, family history, social history, allergy reviewed and noted as below Family hx: no hx of CKD. Rest non-contributory Urine protein creatinine ratio 2 gram per day LVEF 45-50% Objective - Vital Signs/Intake and Output Vital Signs (last 24 hours): Temp Pulse Resp BP Pulse Ox 98.3 F 59 L 18 133/56 L 98 05/26/17 15:38 05/26/17 15:38 05/26/17 15:38 05/26/17 15:38 05/26/17 15:38 - Medications Medications: Current Medications Acetaminophen (Tylenol 325mg Tab) 650 mg PO Q4 PRN PRN Reason: Pain, moderate (4-7) Last Admin: 05/26/17 14:00 Dose: 650 mg Albuterol Sulfate (Albuterol 0.083% Inhal Comfort (2.5 Mg/3 Ml) Ud) 2.5 mg INH RQ6 PRN PRN Reason: Shortness of Breath Aspirin (Aspirin Chewable) 81 mg PO DAILY [facility] Last Admin: 05/26/17 09:05 Dose: 81 mg Atenolol (Tenormin) 50 mg PO DAILY [facility] Last Admin: 05/26/17 09:08 Dose: 50 mg Atorvastatin Calcium (Lipitor) 20 mg PO DAILY [facility] Last Admin: 05/26/17 09:05 Dose: 20 mg Brimonidine Tartrate (Alphagan 0.2% Opht) 1 drop OU Q12 [facility] Last Admin: 05/26/17 09:08 Dose: 1 drop Clopidogrel Bisulfate (Plavix) 75 mg PO DAILY [facility] Last Admin: 05/26/17 09:05 Dose: 75 mg Enoxaparin Sodium (Lovenox) 30 mg SC DAILY [facility] PRN Reason: Protocol Last Admin: 05/26/17 09:06 Dose: 30 mg Furosemide (Lasix) 40 mg IV DAILY [facility] Last Admin: 05/26/17 09:05 Dose: 40 mg Glipizide (Glucotrol) 10 mg PO DAILY [facility] Last Admin: 05/26/17 09:07 Dose: 10 mg Haloperidol (Haldol) 0.5 mg PO TID PRN PRN Reason: agitation/delerium Home Med (Melatonin [Melatonin]) 10 mg PO HS PRN PRN Reason: Insomnia Ceftriaxone Sodium 1 gm/ (Dextrose) 100 mls @ 100 mls/hr IVPB DAILY [facility] PRN Reason: Protocol Last Admin: 05/26/17 09:07 Dose: 100 mls/hr Insulin Human Regular (Humulin R) 0 units SC ACCU-CHECK [facility] PRN Reason: Protocol Last Admin: 05/26/17 12:12 Dose: 2 unit Levetiracetam (Keppra) 500 mg PO BID [facility] Last Admin: 05/26/17 09:05 Dose: 500 mg Multivitamins/Minerals (Therapeutic-M Tab) 1 tab PO DAILY [facility] Last Admin: 05/26/17 09:05 Dose: 1 tab Nifedipine (Procardia Xl) 90 mg PO DAILY [facility] Last Admin: 05/26/17 09:08 Dose: 90 mg Timolol Maleate (Timoptic 0.5% [facility]) 1 drop OU Q12 [facility] Last Admin: 05/26/17 09:06 Dose: 1 drop - Labs Labs: 05/26/17 06:28 05/26/17 06:28 PT 11.7 Seconds (9.8-13.1) 05/22/17 17:23 INR 1.1 (0.9-1.2) 05/22/17 17:23 APTT 37.2 Seconds (25.6-37.1) H 05/22/17 17:23
[2017-05-27] MEDS: Insulin Regular 100 units/ml SC SCH ×2 (06:30→12:13)
[2017-05-27 07:21] LABS: BASO # 0.1 K/uL (0.0-0.2); BASO % 1.3 % (0.0-2.0); EOS # 1.3 K/uL (0.0-0.7); EOS % 16.1 % (0.0-4.0); HEMOGLOBIN 10.2 g/dL (12.0-18.0); LYMPH # 2.3 K/uL (1.0-4.3); LYMPH % 29.1 % (20.0-40.0); MEAN CELL VOLUME 80.4 fl (80.0-94.0); MEAN CORPUSCULAR HEMOGLOBIN 26.1 pg (27.0-31.0); MEAN CORPUSCULAR HGB CONC 32.4 g/dL (33.0-37.0); MEAN PLATELET VOLUME 8.5 fl (7.2-11.7); MONO # 0.8 K/uL (0.0-0.8); MONO % 10.1 % (0.0-10.0); NEUT # 3.5 K/uL (1.8-7.0); NEUT % 43.4 % (50.0-75.0); NRBC % 0.1 % (0.0-0.0); RBC 3.9 Mil/uL (4.40-5.90); RED CELL DISTRIBUTION WIDTH 15.4 % (11.5-14.5)
[2017-05-27 07:37] LABS: ALBUMIN 3.2 g/dL (3.5-5.0); CALCIUM 9.2 mg/dL (8.4-10.2)
[2017-05-27] MEDS: Enoxaparin 30 mg Syringe SC SCH (09:01)
[2017-05-27] MEDS: Brimonidine 0.2% 50 DROP/5 ML BOTTLE OU SCH (09:01)
[2017-05-27] MEDS: Multivitamin With Minerals Tab PO SCH (09:03)
[2017-05-27] MEDS: NIFEdipine 90 mg ER Tab PO SCH (09:04)
[2017-05-27] MEDS ORDERED: Potassium Chloride 20 mEq ER Tab PO SCH (10:15)
--- NOTE | 2017-05-27 10:47 | CP.PCM.PN ---
Subjective - Date & Time of Evaluation Date of Evaluation: 05/27/17 Time of Evaluation: 10:47 - Subjective Subjective: pt doing well, off 1:1 since 1430 yesterday w/ family and avysys at bedside. no f/c, n/v/d. bw noted. pt for renal and bladder us per nephro. no dyspnea. case d /c w/ cardio. bw noted. Objective - Vital Signs/Intake and Output Vital Signs (last 24 hours): Temp Pulse Resp BP Pulse Ox 98.1 F 82 18 148/61 94 L 05/27/17 08:49 05/27/17 09:03 05/27/17 08:49 05/27/17 09:03 05/27/17 08:49 - Medications Medications: Current Medications Acetaminophen (Tylenol 325mg Tab) 650 mg PO Q4 PRN PRN Reason: Pain, moderate (4-7) Last Admin: 05/26/17 14:00 Dose: 650 mg Albuterol Sulfate (Albuterol 0.083% Inhal Comfort (2.5 Mg/3 Ml) Ud) 2.5 mg INH RQ6 PRN PRN Reason: Shortness of Breath Aspirin (Aspirin Chewable) 81 mg PO DAILY [facility] Last Admin: 05/27/17 09:01 Dose: 81 mg Atenolol (Tenormin) 50 mg PO DAILY [facility] Last Admin: 05/27/17 09:03 Dose: 50 mg Atorvastatin Calcium (Lipitor) 20 mg PO DAILY [facility] Last Admin: 05/27/17 09:03 Dose: 20 mg Brimonidine Tartrate (Alphagan 0.2% Opht) 1 drop OU Q12 [facility] Last Admin: 05/27/17 09:01 Dose: 1 drop Clopidogrel Bisulfate (Plavix) 75 mg PO DAILY [facility] Last Admin: 05/27/17 09:01 Dose: 75 mg Enoxaparin Sodium (Lovenox) 30 mg SC DAILY [facility] PRN Reason: Protocol Last Admin: 05/27/17 09:01 Dose: 30 mg Furosemide (Lasix) 40 mg IV DAILY [facility] Last Admin: 05/27/17 09:02 Dose: 40 mg Glipizide (Glucotrol) 10 mg PO DAILY [facility] Last Admin: 05/27/17 09:03 Dose: 10 mg Haloperidol (Haldol) 0.5 mg PO TID PRN PRN Reason: agitation/delerium Home Med (Melatonin [Melatonin]) 10 mg PO HS PRN PRN Reason: Insomnia Ceftriaxone Sodium 1 gm/ (Dextrose) 100 mls @ 100 mls/hr IVPB DAILY [facility] PRN Reason: Protocol Last Admin: 05/27/17 09:05 Dose: 100 mls/hr Insulin Human Regular (Humulin R) 0 units SC ACCU-CHECK [facility] PRN Reason: Protocol Last Admin: 05/27/17 06:30 Dose: Not Given Levetiracetam (Keppra) 500 mg PO BID [facility] Last Admin: 05/27/17 09:03 Dose: 500 mg Multivitamins/Minerals (Therapeutic-M Tab) 1 tab PO DAILY [facility] Last Admin: 05/27/17 09:03 Dose: 1 tab Nifedipine (Procardia Xl) 90 mg PO DAILY [facility] Last Admin: 05/27/17 09:04 Dose: 90 mg Potassium Chloride (K-Dur 20 Meq Er Tab) 20 meq PO BID [facility] Stop: 05/27/17 17:01 Timolol Maleate (Timoptic 0.5% [facility]) 1 drop OU Q12 [facility] Last Admin: 05/26/17 23:25 Dose: 1 drop - Labs Labs: 05/27/17 05:30 05/27/17 05:30 PT 11.7 Seconds (9.8-13.1) 05/22/17 17:23 INR 1.1 (0.9-1.2) 05/22/17 17:23 APTT 37.2 Seconds (25.6-37.1) H 05/22/17 17:23 - Constitutional Appears: Well, Non-toxic, No Acute Distress - Head Exam Head Exam: ATRAUMATIC, NORMAL INSPECTION, NORMOCEPHALIC - Eye Exam Eye Exam: EOMI, Normal appearance, PERRL Pupil Exam: NORMAL ACCOMODATION, PERRL - ENT Exam ENT Exam: Mucous Membranes Moist, Normal Exam - Neck Exam Neck Exam: Full ROM, Normal Inspection. absent: Lymphadenopathy - Respiratory Exam Respiratory Exam: Clear to Ausculation Bilateral, NORMAL BREATHING PATTERN - Cardiovascular Exam Cardiovascular Exam: REGULAR RHYTHM, RRR, +S1, +S2. absent: Murmur - GI/Abdominal Exam GI & Abdominal Exam: Soft, Normal Bowel Sounds. absent: Tenderness - Extremities Exam Extremities Exam: Full ROM, Normal Capillary Refill, Normal Inspection. absent : Joint Swelling, Pedal Edema - Back Exam Back Exam: NORMAL INSPECTION - Neurological Exam Neurological Exam: Alert, Awake, CN II-XII Intact, Normal Gait, Oriented x3 - Psychiatric Exam Psychiatric exam: Normal Affect, Normal Mood - Skin Skin Exam: Dry, Intact, Normal Color, Warm Assessment and Plan (1) Diabetes type 2, uncontrolled Status: Acute (2) Acute CHF Status: Acute (3) Hyperkalemia Status: Acute (4) DVT prophylaxis Status: Acute (5) CAD (coronary artery disease) Status: Acute - Assessment and Plan (Free Text) Assessment: (1) Diabetes type 2, uncontrolled Assessment and Plan: cont home meds fsbg diet control Status: Acute (2) Acute CHF Assessment and Plan: cardio icu lasix asa/plavix echo Status: Acute (3) Hyperkalemia Assessment and Plan: now 3.3 kdur 20meq given monitor Status: Acute (4) DVT prophylaxis Assessment and Plan: scd nad aehose lovenox Status: Acute (5) CAD (coronary artery disease) Assessment and Plan: asa/plavix cardio Status: Acute [id number], nephro f/u us reported for tcu today
--- NOTE | 2017-05-27 13:38 | US ---
PROCEDURE: Ultrasound of the Kidneys HISTORY: YAMILETH COMPARISON: None available. TECHNIQUE: Sonogram of the kidneys. FINDINGS: RIGHT KIDNEY: Measures: 10.1 cm. Normal in size, contour and echogenicity. No stone, solid mass lesion or hydronephrosis visualized. 1.5 cm right renal cyst. LEFT KIDNEY: Measures: 9.4 cm. Normal in size, contour and echogenicity. No stone, solid mass lesion or hydronephrosis visualized. OTHER FINDINGS: None. IMPRESSION: 1.5 cm right renal cyst.
--- NOTE | 2017-05-27 13:40 | US ---
PROCEDURE: HISTORY: YAMILETH. COMPARISON: TECHNIQUE: FINDINGS: There is a small postvoid residual of 37 cc. Both ureteral jets are identified. There is no bladder wall thickening or calculi. The prostate gland measures 13.2 cc. IMPRESSION: As above
[2017-05-27 16:05] VITALS: BP 146/63; PULSE 56; RESP 20; TEMP 98; O2SAT 97
== END 2017-05-27 15:50 | DRG 291 ==
LOC: H.ER 16:46 → H.ERHOLD 18:23 → H.ICU/CCU 19:17 → H.TEL 05-24 12:45
PROVIDERS: ADMIT Family Medicine; ATTEND Family Medicine
PROC: 3E0F73Z Introduction of Anti-inflammatory into Respiratory Tract, Via Natural or Artificial Opening (ICD-10-PCS; principal; 2017-05-22)
PROC: 3E0F7GC Introduction of Other Therapeutic Substance into Respiratory Tract, Via Natural or Artificial Opening (ICD-10-PCS; 2017-05-22)
DX: I13.0 Hypertensive heart and chronic kidney disease with heart failure and stage 1 through stage 4 chronic kidney disease, or unspecified chronic kidney disease (principal); I50.43 Acute on chronic combined systolic (congestive) and diastolic (congestive) heart failure; J96.01 Acute respiratory failure with hypoxia; N17.9 Acute kidney failure, unspecified; J98.11 Atelectasis; N18.3 Chronic kidney disease, stage 3 (moderate); E87.5 Hyperkalemia; E11.65 Type 2 diabetes mellitus with hyperglycemia; E11.22 Type 2 diabetes mellitus with diabetic chronic kidney disease; I25.10 Atherosclerotic heart disease of native coronary artery without angina pectoris; E87.6 Hypokalemia; I25.5 Ischemic cardiomyopathy; I48.91 Unspecified atrial fibrillation; D63.8 Anemia in other chronic diseases classified elsewhere; G40.909 Epilepsy, unspecified, not intractable, without status epilepticus; E78.5 Hyperlipidemia, unspecified; F03.90 Unspecified dementia, unspecified severity, without behavioral disturbance, psychotic disturbance, mood disturbance, and anxiety; M19.041 Primary osteoarthritis, right hand; M19.042 Primary osteoarthritis, left hand; Z95.5 Presence of coronary angioplasty implant and graft; Z95.1 Presence of aortocoronary bypass graft; Z85.46 Personal history of malignant neoplasm of prostate; Z79.82 Long term (current) use of aspirin; Z79.84 Long term (current) use of oral hypoglycemic drugs; Z79.02 Long term (current) use of antithrombotics/antiplatelets; Z87.891 Personal history of nicotine dependence

== ENCOUNTER 2017-05-27 10:57 | Inpatient (IN) | payer OTHER, BC ==
[2017-05-27 15:17] VITALS: BMI 20.5
[2017-05-27] MEDS ORDERED: Albuterol 0.083% Inhal Sol (2.5 mg/3 mL) UD INH PRN (16:40)
[2017-05-27 16:49] VITALS: RESP 20
[2017-05-27] MEDS ORDERED: Potassium Chloride 20 mEq ER Tab PO SCH (17:00)
[2017-05-27] MEDS ORDERED: Dextrose 50% SYRINGE Inj (50 ml) IV PRN (17:21)
[2017-05-27] MEDS ORDERED: Glucagon Recombinant 1 mg Inj IM PRN (17:21)
--- NOTE | 2017-05-27 17:45 | CP.PCM.PN ---
Subjective - Date & Time of Evaluation Date of Evaluation: 05/27/17 Time of Evaluation: 17:42 - Subjective Subjective: Nephrology Consultation Note Assessment: Stable Acute Kidney Injury (N17.9) Stable Diabetic chronic Kidney Disease (E11.22) Hypertensive Chronic Kidney Disease (I12.9) Chronic Kidney Disease (N18.3) Stage 3 with 2000 mg proteinuria (R80.9) likely due to dm/htn Anemia (D64.9), CHF, HTN (I12.9) Hyperkalemia now hypokalemia Plan No acute need for renal replacement therapy at this time. Hypertension control with meds as ordered. Patient not on ACEI/ARB due to recent YAMILETH. We will consider once renal function stable Monitor Input/Output, daily weights and renal function with basic metabolic panel supplement potassium as needed. CHF management as per cardiology agree with lasix Dose meds/antibiotics for reduced GFR. Avoid fleets enema/magnesium based laxatives. Avoid nephrotoxins/NSAIDs/ iodinated contrast (unless needed emergently) Glycemic control Further work up for as per primary team Thanks for allowing me to participate in care of your patient. Will follow patient with you. Please call if any Qs. Discussed with daughter bedside Dr James Chairez Office: [phone] Subjective: Noted events overnight. Patients feels okay. Denies chest pain, palpitation, shortness of breath, Improved leg swelling. All other negative. Reports some hesitancy when making urine Physical Examination: General Appearance: Comfortable, in no acute respiratory distress, co-operative . Vitals reviewed and noted as below Head; Atraumatic, normocephalic ENT: no ulcers no thrush. Tongue is midline. Oropharynx: no rash or ulcers. EYES: Pupils are equal, round and reactive to light accommodation. Eye muscles and extraocular movement intact. Sclera is anicteric. Neck; supple no lymphadenopathy, no thyromegaly or bruit Lungs: Normal respiratory rate/effort. Breath sounds bilateral equal and clear Heart: Normal rate. s1s2 normal. No rub or gallop. Extremities: no edema. No varicose veins Neurological: Patient is alert, awake and oriented to person, place and time. No focal deficit. Strength bilateral appropriate and equal Skin: Warm and dry. Normal turgor. No rash. Palpitation: Normal elasticity for age Abdomen: Abdomen is soft. Bowel sounds +. There is no abdominal tenderness, no guarding/rigidity no organomegaly Psych: Limited insight and normal affect/mood MSK: no joint tenderness or swelling. Digits and nails normal, no deformity : kidney or bladder not palpable Labs/imaging reviewed. Past medical history, past surgical history, family history, social history, allergy reviewed and noted as below Family hx: no hx of CKD. Rest non-contributory Urine protein creatinine ratio 2 gram per day LVEF 45-50% \ renal and bladder sono: small renal cyst. small PVR 37 mL Objective - Vital Signs/Intake and Output Vital Signs (last 24 hours): Temp Pulse Resp BP Pulse Ox 97.0 F L 70 20 141/57 L 96 05/27/17 16:47 05/27/17 17:09 05/27/17 17:09 05/27/17 16:47 05/27/17 17:09 - Medications Medications: Current Medications Albuterol Sulfate (Albuterol 0.083% Inhal Comfort (2.5 Mg/3 Ml) Ud) 2.5 mg INH RQ6 PRN PRN Reason: Shortness of Breath Aspirin (Ecotrin) 81 mg PO DAILY [facility] Atenolol (Tenormin) 50 mg PO Q12 [facility] Atorvastatin Calcium (Lipitor) 20 mg PO DAILY [facility] Ceftriaxone Sodium (Rocephin Iv 1 Gm Duplex) 1 gm IVPB DAILY [facility] PRN Reason: Protocol Clopidogrel Bisulfate (Plavix) 75 mg PO DAILY [facility] Dextrose (Dextrose 50% Inj) 0 ml IV STAT PRN; Protocol PRN Reason: Hypoglycemia Protocol Dextrose (Glutose 15) 0 gm PO ONCE PRN; Protocol PRN Reason: Hypoglycemia Protocol Enoxaparin Sodium (Lovenox) 30 mg SC DAILY [facility] PRN Reason: Protocol Furosemide (Lasix) 40 mg PO DAILY [facility] Glipizide (Glucotrol) 10 mg PO DAILY [facility] Glucagon (Glucagen Diagnostic Kit) 0 mg IM STAT PRN; Protocol PRN Reason: Hypoglycemia Protocol Haloperidol (Haldol) 0.5 mg PO TID PRN PRN Reason: Agitation Home Med (Brimonidine Tartrate/Timolol [Combigan 0.2%-0.5% Eye Drops]) 1 drop EACHEYE Q12 [facility] Home Med (Melatonin [Melatonin]) 10 mg PO HS PRN PRN Reason: Insomnia Insulin Human Regular (Humulin R) 0 units SC ACHS [facility] PRN Reason: Protocol Levetiracetam (Keppra) 500 mg PO BID [facility] Nifedipine (Procardia Xl) 90 mg PO DAILY [facility] Potassium Chloride (K-Dur 20 Meq Er Tab) 20 meq PO BID [facility] Timolol Maleate (Timoptic 0.5% Oph Soln) 1 drop OU Q12 [facility]
[2017-05-27] MEDS ORDERED: Patient's Own Med (Brimonidine Tartrate/Timolol [Combigan 0.2%-0.5% Eye Drops] 1 DROP) EACHEYE SCH (21:00)
[2017-05-27] MEDS: Brimonidine 0.2% 50 DROP/5 ML BOTTLE OU SCH (21:11)
[2017-05-27] MEDS: Insulin Regular 100 units/ml SC SCH (21:18)
[2017-05-28] MEDS: Insulin Regular 100 units/ml SC SCH ×4 (06:39→21:49)
--- NOTE | 2017-05-28 07:27 | CP.PCM.HP ---
History of Present Illness - History of Present Illness History of Present Illness: [facility] s/p newonset chf. doing well. w/o dyspnea/cp. nof / c, n/v/d. periods of confusion necessitating faimly and avysys at bedside. Present on Admission - Present on Admission Any Indicators Present on Admission: Yes History of Uncontrolled Diabetes: Yes Past Patient History - Past Medical History & Family History Past Medical History?: Yes - Past Social History Smoking Status: Never Smoked - CARDIAC Hx Cardiac Disorders: Yes Hx Congestive Heart Failure: Yes Hx Hypercholesterolemia: Yes Hx Hypertension: Yes - PULMONARY Hx Respiratory Disorders: No - NEUROLOGICAL Hx Dementia: Yes Hx Seizures: Yes - HEENT Hx HEENT Problems: Yes Other/Comment: hard of hearing - RENAL Hx Chronic Kidney Disease: No - ENDOCRINE/METABOLIC Hx Diabetes Mellitus Type 2: Yes - HEMATOLOGICAL/ONCOLOGICAL Hx Blood Disorders: No - INTEGUMENTARY Hx Dermatological Problems: No - MUSCULOSKELETAL/RHEUMATOLOGICAL Hx Arthritis: Yes Hx Falls: Yes Hx Osteoarthritis: Yes - GASTROINTESTINAL Hx Gastrointestinal Disorders: No - GENITOURINARY/GYNECOLOGICAL Hx Genitourinary Disorders: No Hx Prostate Cancer: Yes - PSYCHIATRIC Hx Psychophysiologic Disorder: No Hx Substance Use: No - SURGICAL HISTORY Hx Coronary Artery Bypass Graft: Yes Hx Coronary Stent: Yes - ANESTHESIA Hx Anesthesia: Yes Hx Anesthesia Reactions: No Hx Malignant Hyperthermia: No Meds Allergies/Adverse Reactions: Allergies Allergy/AdvReac Type Severity Reaction Status Date / Time No Known Allergies Allergy Verified 05/27/17 15:17 Physical Exam - Constitutional Appears: Well, Non-toxic, No Acute Distress - Head Exam Head Exam: ATRAUMATIC, NORMAL INSPECTION, NORMOCEPHALIC - Eye Exam Eye Exam: EOMI, Normal appearance, PERRL Pupil Exam: NORMAL ACCOMODATION, PERRL - ENT Exam ENT Exam: Mucous Membranes Moist, Normal Exam - Neck Exam Neck exam: Positive for: Normal Inspection - Respiratory Exam Respiratory Exam: Clear to Auscultation Bilateral, NORMAL BREATHING PATTERN - Cardiovascular Exam Cardiovascular Exam: REGULAR RHYTHM, RRR, +S1, +S2 - GI/Abdominal Exam GI & Abdominal Exam: Normal Bowel Sounds, Soft. absent: Tenderness - Extremities Exam Extremities exam: Positive for: full ROM, normal capillary refill, normal inspection, pedal pulses present - Back Exam Back exam: FULL ROM, NORMAL INSPECTION - Neurological Exam Neurological exam: Alert, CN II-XII Intact, Normal Gait, Oriented x3, Reflexes Normal - Psychiatric Exam Psychiatric exam: Normal Affect, Normal Mood - Skin Skin Exam: Dry, Intact, Normal Color, Warm Results - Vital Signs Recent Vital Signs: Last Vital Signs Temp 97.3 F L 05/27/17 20:08 Pulse 60 05/27/17 21:12 Resp 20 05/27/17 20:08 BP 135/56 L 05/27/17 21:12 Pulse Ox 97 05/27/17 20:08 - Labs Labs: Laboratory Results - last 24 hr 05/27/17 21:13 POC Glucose (mg/dL) 142 H Assessment & Plan (1) Acute kidney injury Assessment and Plan: nephro cont med regimen Status: Acute (2) CAD (coronary artery disease) Assessment and Plan: cont meds Status: Acute (3) Congestive heart failure Assessment and Plan: contmeds pt/ot Status: Acute (4) DVT prophylaxis Assessment and Plan: scd nad ae hose lovenox Status: Acute Decision To Admit - Pt Status Changed To: Hospital Disposition Of: Inpatient - Admit Certification Admit to Inpatient:: After my assessment, the patient will require hospitalization for at least two midnights. This is because of the severity of symptoms shown, intensity of services needed, and/or the medical risk in this patient being treated as an outpatient. - . Bed Request Type: Transitional Care Unit Admitting Physician: Tami Diaz
[2017-05-28 08:27] LABS: HEMOGLOBIN 11.2 g/dL (12.0-18.0); MEAN CELL VOLUME 79.7 fl (80.0-94.0); MEAN CORPUSCULAR HEMOGLOBIN 27.1 pg (27.0-31.0); RBC 4.11 Mil/uL (4.40-5.90); RED CELL DISTRIBUTION WIDTH 15.3 % (11.5-14.5)
[2017-05-28 08:35] LABS: CALCIUM 9.3 mg/dL (8.4-10.2)
[2017-05-28] MEDS: NIFEdipine 90 mg ER Tab PO SCH (08:56)
[2017-05-28] MEDS: Enoxaparin 30 mg Syringe SC SCH (08:57)
[2017-05-28] MEDS ORDERED: cefTRIAXone IV 1 gm in Dextros 50 ML BAG IVPB SCH (09:00)
[2017-05-28] MEDS: Brimonidine 0.2% 50 DROP/5 ML BOTTLE OU SCH ×2 (09:00→20:30)
[2017-05-29] MEDS: Insulin Regular 100 units/ml SC SCH ×4 (06:43→21:11)
[2017-05-29] MEDS: Enoxaparin 30 mg Syringe SC SCH (08:49)
[2017-05-29] MEDS: Brimonidine 0.2% 50 DROP/5 ML BOTTLE OU SCH ×2 (08:50→21:08)
[2017-05-29] MEDS: NIFEdipine 90 mg ER Tab PO SCH (08:52)
[2017-05-30] MEDS: Insulin Regular 100 units/ml SC SCH ×4 (06:58→21:13)
[2017-05-30] MEDS: Enoxaparin 30 mg Syringe SC SCH (08:12)
[2017-05-30] MEDS: NIFEdipine 90 mg ER Tab PO SCH (08:12)
[2017-05-30] MEDS: Brimonidine 0.2% 50 DROP/5 ML BOTTLE OU SCH ×2 (08:13→21:10)
--- NOTE | 2017-05-30 08:28 | CP.PCM.PN ---
Subjective - Date & Time of Evaluation Date of Evaluation: 05/30/17 Time of Evaluation: 08:25 - Subjective Subjective: pt doing well. nof/c, n/v/d. participating in pt/ot.no cp, dyspnea. Objective - Vital Signs/Intake and Output Vital Signs (last 24 hours): Temp Pulse Resp BP Pulse Ox 97.0 F L 60 20 153/54 H 98 05/29/17 20:56 05/30/17 08:14 05/29/17 20:56 05/30/17 08:14 05/29/17 20:56 - Medications Medications: Current Medications Albuterol Sulfate (Albuterol 0.083% Inhal Comfort (2.5 Mg/3 Ml) Ud) 2.5 mg INH RQ6 PRN PRN Reason: Shortness of Breath Aspirin (Ecotrin) 81 mg PO DAILY [facility] Last Admin: 05/30/17 08:12 Dose: 81 mg Atenolol (Tenormin) 50 mg PO Q12 [facility] Last Admin: 05/30/17 08:14 Dose: 50 mg Atorvastatin Calcium (Lipitor) 20 mg PO DAILY [facility] Last Admin: 05/30/17 08:14 Dose: 20 mg Brimonidine Tartrate (Alphagan 0.2% Opht) 1 drop OU Q12H [facility] Last Admin: 05/30/17 08:13 Dose: 1 drop Clopidogrel Bisulfate (Plavix) 75 mg PO DAILY [facility] Last Admin: 05/30/17 08:12 Dose: 75 mg Dextrose (Dextrose 50% Inj) 0 ml IV STAT PRN; Protocol PRN Reason: Hypoglycemia Protocol Dextrose (Glutose 15) 0 gm PO ONCE PRN; Protocol PRN Reason: Hypoglycemia Protocol Enoxaparin Sodium (Lovenox) 30 mg SC DAILY [facility] PRN Reason: Protocol Last Admin: 05/30/17 08:12 Dose: 30 mg Furosemide (Lasix) 40 mg PO DAILY [facility] Last Admin: 05/30/17 08:12 Dose: 40 mg Glipizide (Glucotrol) 10 mg PO DAILY [facility] Last Admin: 05/30/17 08:14 Dose: 10 mg Glucagon (Glucagen Diagnostic Kit) 0 mg IM STAT PRN; Protocol PRN Reason: Hypoglycemia Protocol Haloperidol (Haldol) 0.5 mg PO TID PRN PRN Reason: Agitation Home Med (Melatonin [Melatonin]) 10 mg PO HS PRN PRN Reason: Insomnia Ceftriaxone Sodium 1 gm/ (Dextrose) 100 mls @ 100 mls/hr IVPB DAILY@1700 [facility] Last Admin: 05/29/17 16:27 Dose: 100 mls/hr Insulin Human Regular (Humulin R) 0 units SC ACHS [facility] PRN Reason: Protocol Last Admin: 05/30/17 06:58 Dose: Not Given Levetiracetam (Keppra) 500 mg PO BID [facility] Last Admin: 05/30/17 08:13 Dose: 500 mg Nifedipine (Procardia Xl) 90 mg PO DAILY [facility] Last Admin: 05/30/17 08:12 Dose: 90 mg Timolol Maleate (Timoptic 0.5% Ophth Soln) 1 drop OU Q12 [facility] Last Admin: 05/29/17 21:08 Dose: 1 drop - Labs Labs: 05/28/17 08:07 05/28/17 08:07 - Constitutional Appears: Well, Non-toxic, No Acute Distress - Head Exam Head Exam: ATRAUMATIC, NORMAL INSPECTION, NORMOCEPHALIC - Eye Exam Eye Exam: EOMI, Normal appearance, PERRL Pupil Exam: NORMAL ACCOMODATION, PERRL - ENT Exam ENT Exam: Mucous Membranes Moist, Normal Exam - Neck Exam Neck Exam: Full ROM, Normal Inspection. absent: Lymphadenopathy - Respiratory Exam Respiratory Exam: Clear to Ausculation Bilateral, NORMAL BREATHING PATTERN - Cardiovascular Exam Cardiovascular Exam: REGULAR RHYTHM, RRR, +S1, +S2. absent: Murmur - GI/Abdominal Exam GI & Abdominal Exam: Soft, Normal Bowel Sounds. absent: Tenderness - Extremities Exam Extremities Exam: Full ROM, Normal Capillary Refill, Normal Inspection. absent : Joint Swelling, Pedal Edema - Back Exam Back Exam: NORMAL INSPECTION - Neurological Exam Neurological Exam: Alert, Awake, CN II-XII Intact, Normal Gait, Oriented x3 - Psychiatric Exam Psychiatric exam: Normal Affect, Normal Mood - Skin Skin Exam: Dry, Intact, Normal Color, Warm Assessment and Plan (1) Acute kidney injury Status: Acute (2) CAD (coronary artery disease) Status: Acute (3) Congestive heart failure Status: Acute (4) DVT prophylaxis Status: Acute - Assessment and Plan (Free Text) Assessment: (1) Acute kidney injury Assessment and Plan: nephro cont med regimen Status: Acute (2) CAD (coronary artery disease) Assessment and Plan: cont meds Status: Acute (3) Congestive heart failure Assessment and Plan: contmeds pt/ot Status: Acute (4) DVT prophylaxis Assessment and Plan: scd nad ae hose lovenox Status: Acute
[2017-05-30] MEDS ORDERED: Dextrose 50% SYRINGE Inj (50 ml) IVP ONE (14:56)
[2017-05-31] MEDS: Insulin Regular 100 units/ml SC SCH ×4 (06:29→21:05)
[2017-05-31] MEDS: Enoxaparin 30 mg Syringe SC SCH (08:38)
[2017-05-31] MEDS: NIFEdipine 90 mg ER Tab PO SCH (08:39)
[2017-05-31] MEDS: Brimonidine 0.2% 50 DROP/5 ML BOTTLE OU SCH ×2 (08:41→20:10)
[2017-06-01] MEDS: Insulin Regular 100 units/ml SC SCH ×4 (07:00→21:31)
[2017-06-01] MEDS: Brimonidine 0.2% 50 DROP/5 ML BOTTLE OU SCH ×2 (08:14→20:57)
[2017-06-01] MEDS: NIFEdipine 90 mg ER Tab PO SCH (08:15)
[2017-06-01] MEDS: Enoxaparin 30 mg Syringe SC SCH (08:15)
--- NOTE | 2017-06-01 11:40 | CP.PCM.PN ---
Subjective - Date & Time of Evaluation Date of Evaluation: 06/01/17 Time of Evaluation: 11:39 - Subjective Subjective: pt doing well, slightly confused but cooperative. son at bedside. hr 52-55, am atenolol held. no f/c, n/v/d. moving all ext. no cp, dyspnea. cassidy Objective - Vital Signs/Intake and Output Vital Signs (last 24 hours): Temp Pulse Resp BP Pulse Ox 99.5 F 50 L 20 119/49 L 97 06/01/17 09:02 06/01/17 11:29 06/01/17 09:02 06/01/17 11:29 06/01/17 09:02 - Medications Medications: Current Medications Albuterol Sulfate (Albuterol 0.083% Inhal Comfort (2.5 Mg/3 Ml) Ud) 2.5 mg INH RQ6 PRN PRN Reason: Shortness of Breath Aspirin (Ecotrin) 81 mg PO DAILY [facility] Last Admin: 06/01/17 08:15 Dose: 81 mg Atenolol (Tenormin) 50 mg PO Q12 [facility] Last Admin: 06/01/17 11:29 Dose: Not Given Atorvastatin Calcium (Lipitor) 20 mg PO DAILY [facility] Last Admin: 06/01/17 08:15 Dose: 20 mg Brimonidine Tartrate (Alphagan 0.2% Opht) 1 drop OU Q12H [facility] Last Admin: 06/01/17 08:14 Dose: 1 drop Clopidogrel Bisulfate (Plavix) 75 mg PO DAILY [facility] Last Admin: 06/01/17 08:15 Dose: 75 mg Dextrose (Dextrose 50% Inj) 0 ml IV STAT PRN; Protocol PRN Reason: Hypoglycemia Protocol Dextrose (Glutose 15) 0 gm PO ONCE PRN; Protocol PRN Reason: Hypoglycemia Protocol Enoxaparin Sodium (Lovenox) 30 mg SC DAILY [facility] PRN Reason: Protocol Last Admin: 06/01/17 08:15 Dose: 30 mg Furosemide (Lasix) 40 mg PO DAILY [facility] Last Admin: 06/01/17 08:23 Dose: 40 mg Glipizide (Glucotrol) 10 mg PO DAILY [facility] Last Admin: 06/01/17 08:15 Dose: 10 mg Glucagon (Glucagen Diagnostic Kit) 0 mg IM STAT PRN; Protocol PRN Reason: Hypoglycemia Protocol Haloperidol (Haldol) 0.5 mg PO TID PRN PRN Reason: Agitation Home Med (Melatonin [Melatonin]) 10 mg PO HS PRN PRN Reason: Insomnia Insulin Human Regular (Humulin R) 0 units SC ACHS [facility] PRN Reason: Protocol Last Admin: 06/01/17 11:25 Dose: 1 unit Levetiracetam (Keppra) 500 mg PO BID [facility] Last Admin: 06/01/17 08:15 Dose: 500 mg Nifedipine (Procardia Xl) 90 mg PO DAILY [facility] Last Admin: 06/01/17 08:15 Dose: 90 mg Timolol Maleate (Timoptic 0.5% Ophth Soln) 1 drop OU Q12 [facility] Last Admin: 06/01/17 08:20 Dose: 1 drop - Labs Labs: 05/28/17 08:07 05/28/17 08:07 - Constitutional Appears: Well, Non-toxic, No Acute Distress - Head Exam Head Exam: ATRAUMATIC, NORMAL INSPECTION, NORMOCEPHALIC - Eye Exam Eye Exam: EOMI, Normal appearance, PERRL Pupil Exam: NORMAL ACCOMODATION, PERRL - ENT Exam ENT Exam: Mucous Membranes Moist, Normal Exam - Neck Exam Neck Exam: Full ROM, Normal Inspection. absent: Lymphadenopathy - Respiratory Exam Respiratory Exam: Clear to Ausculation Bilateral, NORMAL BREATHING PATTERN - Cardiovascular Exam Cardiovascular Exam: Bradycardia, REGULAR RHYTHM, RRR, +S1, +S2. absent: Murmur - GI/Abdominal Exam GI & Abdominal Exam: Soft, Normal Bowel Sounds. absent: Tenderness - Extremities Exam Extremities Exam: Full ROM, Normal Capillary Refill, Normal Inspection. absent : Joint Swelling, Pedal Edema - Back Exam Back Exam: NORMAL INSPECTION - Neurological Exam Neurological Exam: Abnormal Gait, Alert, Awake, CN II-XII Intact, Oriented x3 - Psychiatric Exam Psychiatric exam: Normal Affect, Normal Mood - Skin Skin Exam: Dry, Intact, Normal Color, Warm Assessment and Plan (1) Acute kidney injury Status: Acute (2) CAD (coronary artery disease) Status: Acute (3) Congestive heart failure Status: Acute (4) DVT prophylaxis Status: Acute - Assessment and Plan (Free Text) Assessment: (1) Acute kidney injury Assessment and Plan: nephro cont med regimen Status: Acute (2) CAD (coronary artery disease) Assessment and Plan: cont meds Status: Acute (3) Congestive heart failure Assessment and Plan: contmeds pt/ot Status: Acute (4) DVT prophylaxis Assessment and Plan: scd nad ae hose lovenox Status: Acute 5-htn-hold am atenolol r/t bradycardia, if bradycardia persists will titrate meds
[2017-06-02] MEDS: Brimonidine 0.2% 50 DROP/5 ML BOTTLE OU SCH (08:46)
[2017-06-02] MEDS: Insulin Regular 100 units/ml SC SCH ×3 (08:47→17:09)
[2017-06-02] MEDS: NIFEdipine 90 mg ER Tab PO SCH (08:47)
[2017-06-02] MEDS: Enoxaparin 30 mg Syringe SC SCH (08:48)
[2017-06-02 15:45] VITALS: BP 144/52; PULSE 80; TEMP 97; O2SAT 99
--- NOTE | 2017-06-04 15:04 | CP.PCM.DIS ---
Provider - Provider Date of Admission: 05/27/17 15:57 Attending physician: Tami Diaz MD Time Spent in preparation of Discharge (in minutes): 15 Diagnosis - Discharge Diagnosis (1) Acute kidney injury Status: Acute (2) CAD (coronary artery disease) Status: Acute (3) Congestive heart failure Status: Acute (4) DVT prophylaxis Status: Acute Hospital Course - Lab Results Lab Results: Most Recent Lab Values WBC 9.0 K/uL (4.8-10.8) 05/28/17 08:07 RBC 4.11 Mil/uL (4.40-5.90) L 05/28/17 08:07 Hgb 11.2 g/dL (12.0-18.0) L 05/28/17 08:07 Hct 32.8 % (35.0-51.0) L 05/28/17 08:07 MCV 79.7 fl (80.0-94.0) L 05/28/17 08:07 MCH 27.1 pg (27.0-31.0) 05/28/17 08:07 MCHC 34.0 g/dL (33.0-37.0) 05/28/17 08:07 RDW 15.3 % (11.5-14.5) H 05/28/17 08:07 Plt Count 290 K/uL (130-400) 05/28/17 08:07 Sodium 141 mmol/l (132-148) 05/28/17 08:07 Potassium 4.1 MMOL/L (3.6-5.0) 05/28/17 08:07 Chloride 99 mmol/L (98-107) 05/28/17 08:07 Carbon Dioxide 30 mmol/L (22-30) 05/28/17 08:07 Anion Gap 16 (10-20) 05/28/17 08:07 BUN 35 mg/dl (9-20) H 05/28/17 08:07 Creatinine 1.6 mg/dl (0.8-1.5) H 05/28/17 08:07 Est GFR ( Amer) 51 05/28/17 08:07 Est GFR (Non-Af Amer) 42 05/28/17 08:07 POC Glucose (mg/dL) 81 mg/dL (65-110) 06/02/17 17:52 Random Glucose 94 mg/dL (75-110) 05/28/17 08:07 Calcium 9.3 mg/dL (8.4-10.2) 05/28/17 08:07 - Hospital Course Hospital Course: pt/ot Discharge Exam - Head Exam Head Exam: ATRAUMATIC, NORMAL INSPECTION, NORMOCEPHALIC Discharge Plan - Follow Up Plan Condition: GOOD Disposition: HOME/ ROUTINE Instructions: Heart Failure, Adult (DC) Additional Instructions: final dx-cad, chf, gait instability pts son wishes to be dc home. pt in no pain/distress/sob. per rn pt was cleared by phsyical therapy prior to dc. f/u [facility] sunday. rted prn meds per med rec
== END 2017-06-02 18:30 | disposition home or self-care (01) | DRG 683 ==
LOC: H.TCU 15:57
PROVIDERS: ADMIT Family Medicine; ATTEND Family Medicine
PROC: F07Z9FZ Gait Training/Functional Ambulation Treatment using Assistive, Adaptive, Supportive or Protective Equipment (ICD-10-PCS; principal; 2017-05-27)
PROC: F08Z4FZ Home Management Treatment using Assistive, Adaptive, Supportive or Protective Equipment (ICD-10-PCS; 2017-05-27)
PROC: F07M6FZ Therapeutic Exercise Treatment of Musculoskeletal System - Whole Body using Assistive, Adaptive, Supportive or Protective Equipment (ICD-10-PCS; 2017-05-28)
DX: N17.9 Acute kidney failure, unspecified (principal); I13.0 Hypertensive heart and chronic kidney disease with heart failure and stage 1 through stage 4 chronic kidney disease, or unspecified chronic kidney disease; E11.22 Type 2 diabetes mellitus with diabetic chronic kidney disease; I50.9 Heart failure, unspecified; F03.90 Unspecified dementia, unspecified severity, without behavioral disturbance, psychotic disturbance, mood disturbance, and anxiety; N18.3 Chronic kidney disease, stage 3 (moderate); E87.6 Hypokalemia; I25.10 Atherosclerotic heart disease of native coronary artery without angina pectoris; D63.1 Anemia in chronic kidney disease; E78.00 Pure hypercholesterolemia, unspecified; M19.90 Unspecified osteoarthritis, unspecified site; Z85.46 Personal history of malignant neoplasm of prostate; Z95.1 Presence of aortocoronary bypass graft; Z95.5 Presence of coronary angioplasty implant and graft